=== PATIENT | male | born 1955 | race Caucasian/White ===

== ENCOUNTER 2023-04-03 13:36 | Emergency (ER) | payer MEDICARE, SELFPAY ==
[2023-04-03 13:38] VITALS: BP 142/75; PULSE 59; RESP 16; TEMP 36.7; O2SAT 100; BMI 42.3
[2023-04-03 13:50] VITALS: TEMP 36.7; O2SAT 100
--- NOTE | 2023-04-03 13:54 | CT_ITS ---
STUDY: CT CERVICAL SPINE WITHOUT CONTRAST REASON FOR EXAM: Male, 67 years old. injury, pain RADIATION DOSAGE (If Supplied By Facility): CTDIvol = ( 29.32 ) mGy, DLP = ( 616.57 ) mGycm TECHNIQUE: High resolution transaxial imaging was performed without contrast material. Sagittal and coronal images were reconstructed. Individualized dose optimization techniques were used for this CT. COMPARISON: None FINDINGS: Normal craniovertebral junction. Normal anterior atlantoaxial articulation. Normal odontoid process. There is straightening of the normal cervical lordosis. Normal vertebral bodies and posterior osseous elements. C2-3: Left uncovertebral hypertrophy produces mild left neural foraminal stenosis. No central spinal stenosis. C3-4: 2 mm retrolisthesis of C3 on C4 with a mild bilobed disc osteophyte complex and bilateral uncovertebral hypertrophy produces moderate spinal stenosis and moderate bilateral neural foraminal stenosis. C4-5: Status post anterior cervical discectomy and fusion with bony bridging with anatomic alignment with mild spinal stenosis and mild bilateral neural foraminal stenosis. C5-6: Status post anterior cervical discectomy and fusion with bony bridging with anatomic alignment and mild spinal stenosis and mild bilateral neural foraminal stenosis. C6-7: Status post anterior cervical discectomy and fusion with bony bridging with anatomic alignment and mild spinal stenosis and mild bilateral neural foraminal stenosis C7-T1: Mild broad disc osteophyte complex and bilateral uncovertebral hypertrophy produces mild spinal stenosis and mild bilateral neural foraminal stenosis. Normal visualized soft tissue structures. CT/Spine Cervical without Contras IMPRESSION: No acute fracture or subluxation. Electronically Signed: Brad Alamo MD at 16:00 EDT ,
--- NOTE | 2023-04-03 13:54 | CT_ITS ---
STUDY: CT BRAIN WITHOUT CONTRAST REASON FOR EXAM: Male, 67 years old. fall, head injury RADIATION DOSAGE (If Supplied By Facility): CTDIvol = ( 44.99 ) mGy, DLP = ( 796.11 ) mGycm TECHNIQUE: Transaxial CT imaging of the brain was performed without administration of intravenous contrast material. Individualized dose optimization techniques were used for this CT. COMPARISON: No relevant priors. FINDINGS: Normal soft tissue structures. Normal calvarium. Normal size ventricles and extra-axial spaces for the patient''s age. Normal white matter tracts of the cerebral hemispheres. Normal basal ganglia and thalami. Normal brainstem. Normal cerebellum. There is no intracranial hemorrhage. There are no findings of an acute ischemic infarction. Normal visualized paranasal sinuses. CT/Brain/Head without Contrast IMPRESSION: Normal unenhanced CT scan of the brain. Electronically Signed: Brad Alamo MD at 14:45 EDT ,
--- NOTE | 2023-04-03 13:55 | EX.ED.GENINJ ---
HPI <LEXI Saravia - Last Filed: 04/03/23 17:28> History of Present Illness Chief Complaint: Fall Narrative Narrative: Patient presenting today due to a fall that occurred this morning. He reports that he was taking a shower when he slipped and hit the back of his head on the side of the bathtub. He was able to get up and ambulate after the fall and did not lose consciousness, nor did he feel dazed or confused after the fall. He denies any current headaches, lightheadedness, nausea, or vomiting. Patient reports pain to his neck and to his left flank. He denies any other injury. He takes a daily aspirin but does not take any other blood thinners. FORMERLY [facility], 1928–1983 <LEXI Saravia - Last Filed: 04/03/23 17:28> FORMERLY [facility], [facility] Medical History Type 2 diabetes mellitus Home Medications amlodipine 10 mg tablet 10 mg PO DAILY 04/03/23 [History Last Taken Unknown] aspirin 81 mg capsule 81 mg PO DAILY 04/03/23 [History Last Taken Unknown] atorvastatin 20 mg tablet 20 mg PO QHS 04/03/23 [History Last Taken Unknown] calcium carbonate 600 mg-vitamin D3 5 mcg (200 unit) tablet (Calcium 600 + D(3)) 1 tab PO BID 04/03/23 [History Last Taken Unknown] folic acid 800 mcg tablet 800 mcg PO DAILY 04/03/23 [History Last Taken Unknown] furosemide 40 mg tablet 40 mg PO DAILY 04/03/23 [History Last Taken Unknown] insulin aspart U-100 .ROUTE 04/03/23 [History Last Taken Unknown] insulin degludec 100 unit/mL subcutaneous solution (Tresiba U-100 Insulin) 40 unit subcut QHS 04/03/23 [History Last Taken Unknown] mecobalamin (vitamin B12) 1,000 mcg chewable tablet 1,000 mcg PO DAILY 04/03/23 [History Last Taken Unknown] metoprolol tartrate 50 mg tablet 50 mg PO BID 04/03/23 [History Last Taken Unknown] olmesartan 5 mg tablet 5 mg PO DAILY 04/03/23 [History Last Taken Unknown] omeprazole 40 mg capsule,delayed release 40 mg PO DAILY 04/03/23 [History Last Taken Unknown] Allergy/AdvReac Type Severity Reaction Status Date / Time bacitracin Allergy Rash Verified 04/03/23 13:38 [From Neosporin ([id number])] neomycin Allergy Rash Verified 04/03/23 13:38 [From Neosporin ([id number])] nickel Allergy PT UNSURE Verified 04/03/23 13:38 OF REACTION polymyxin B Allergy Rash Verified 04/03/23 13:38 [From Neosporin ([id number])] Surgical History Hx of cholecystectomy Hx of neck surgery Social History Smoking Status: Never smoker ROS <LEXI Saravia - Last Filed: 04/03/23 17:28> ROS ED Constitutional Constitutional ED: Denies chills or fever(s) Eyes Eyes: Denies change in vision Cardiovascular Cardiovascular: Denies chest pain or palpitations Respiratory/Chest Respiratory/Chest: Denies cough or dyspnea Gastrointestinal Gastrointestinal: Denies abdominal pain, nausea or vomiting Musculoskeletal Musculoskeletal: Reports myalgias and neck pain Integumentary Denies Abrasions or laceration Neurologic Neurologic: Denies confusion, dizziness, headache(s), paresthesias or weakness EXAM <LEXI Saravia - Last Filed: 04/03/23 17:28> Physical Exam Const Vital Signs: 04/03/23 13:38 04/03/23 13:50 04/03/23 16:09 Temperature 98.1 F 98.1 F Temperature Source Temporal Pulse Rate 59 L 72 Respiratory Rate 16 18 Respiratory Effort Normal Non-Labored Respiratory Depth Normal Respiratory Pattern Normal Blood Pressure 142/75 H 134/70 H Blood Pressure Mean 97 Pulse Ox 100 100 97 Oxygen Delivery Method Room Air Positive well nourished, well developed and no apparent distress General Appearance ED: well developed HEENT Reports normocephalic and head/scalp atraumatic Mouth ED: Yes moist mucous membranes normal Eyes PERRL and EOMs intact bilaterally Neck full ROM and supple Neck Narrative: Midline tenderness to the cervical spine. Chest Wall inspection of chest normal Resp normal respiratory effort and clear to auscultation bilaterally Cardio regular rate and regular rhythm GI soft to palpation, non-tender, non-distended and no masses Back/Spine normal ROM and normal to inspection Back/Spine Narrative: No midline spinal tenderness to the thoracic, lumbar, or sacral spine. Left flank tenderness to palpation without any ecchymosis or erythema. Extremity normal to inspection and full ROM Extremity Narrative: Full range of motion of hips bilaterally without any pain, no pain to palpation to the hips, negative log-roll bilaterally. Neuro oriented x3, CN's II-XII intact bilaterally, moves all extremities, no focal motor deficits and no sensory deficits noted Sensorium / Orientation: awake and alert Psych mental status grossly normal and thought process normal Skin no rashes or lesions noted and no wounds <Dr. Robert Alexander DO - Last Filed: 05/15/23 08:22> Physical Exam Const Vital Signs: 04/03/23 13:38 04/03/23 13:50 04/03/23 16:09 Temperature 98.1 F 98.1 F Temperature Source Temporal Pulse Rate 59 L 72 Respiratory Rate 16 18 Respiratory Effort Normal Non-Labored Respiratory Depth Normal Respiratory Pattern Normal Blood Pressure 142/75 H 134/70 H Blood Pressure Mean 97 Pulse Ox 100 100 97 Oxygen Delivery Method Room Air [facility] <LEXI Saravia - Last Filed: 04/03/23 17:28> [facility] Narrative Medical decision making narrative: Patient presenting today due to a fall that occurred in the shower earlier today when he slipped and fell and hit his head and neck on the side of the bathtub. He is well-appearing and in no acute distress. He did not lose consciousness. He is not on any blood thinners. He does report pain to his neck. Head and neck CTs will be obtained to rule out intracranial bleed and cervical fracture. CTs are negative for any acute findings. He will be discharged home in stable condition and is comfortable with plan. He is to follow-up with his PCP. Patient presenting today after a fall that occurred this morning while he was taking a shower. He slipped and hit the back of his head and his neck on the side of the bathtub. He is well-appearing and in no acute distress, vitals are unremarkable. He reports pain to his neck and has history of prior neck surgery with a titanium plate and would like his neck to be evaluated. Patient has minimal tenderness to palpation to the left flank region, this does not involve the rib cage or left hip. I have personally performed a face to face assessment of the patient and have reviewed the BRYAN Note. I performed a substantive portion of the visit including all aspects of the following. My astudillo findings include: History is [patient presents after a fall in the shower. Patient fell and hit his head and neck on the side of the tub. Patient states that he slipped. No loss of consciousness. He has history of prior cervical fusion. Patient chronically has paresthesias in his arms and legs but no different than usual. Denies any other injuries other than in his left posterior hip at times she will have some pain with walking but then the pain goes away and he is able to bear weight without difficulty.] Exam is [HEENT-PERRLA, EOMI. Cranial nerves II through XII grossly intact. TMs clear. Mucous membranes moist. No adenopathy. Patient has some faint erythema to the posterior occiput on the left. No hematomas. No bony depressions. Patient has some diffuse tenderness over the lower cervical spine. Cardiovascular-regular rate and rhythm without murmur or ectopy Lungs-clear to auscultation, chest wall stable without crepitus or subcu emphysema Abdomen-normoactive bowel sounds, soft, nontender, no rebound or rigidity, no peritoneal signs. Extremities-intact ?4, normal range of motion, normal pulses, atraumatic] Medical Decison Making [patient had a CT scan of the brain without contrast as well as a CT of the cervical spine which did not show any acute traumatic injuries. Patient will be discharged to home and advised to follow-up with his primary care physician within next 5 to 7 days.] Other additions or changes: [None] Radiography Diagnostic Testing: Clinical Impression(s) from Imaging Studies Brain CT 04/03/23 13:54 IMPRESSION: Normal unenhanced CT scan of the brain. Electronically Signed: Brad Alamo MD at 14:45 EDT , Cervical Spine CT 04/03/23 13:54 IMPRESSION: No acute fracture or subluxation. Electronically Signed: Brad Alamo MD at 16:00 EDT , <Dr. Robert Alexander, DO - Last Filed: 05/15/23 08:22> [facility] Narrative Medical decision making narrative: Patient presenting today after a fall that occurred this morning while he was taking a shower. He slipped and hit the back of his head and his neck on the side of the bathtub. He is well-appearing and in no acute distress, vitals are unremarkable. He reports pain to his neck and has history of prior neck surgery with a titanium plate and would like his neck to be evaluated. Patient has minimal tenderness to palpation to the left flank region, this does not involve the rib cage or left hip. I have personally performed a face to face assessment of the patient and have reviewed the BRYAN Note. I performed a substantive portion of the visit including all aspects of the following. My astudillo findings include: History is [patient presents after a fall in the shower. Patient fell and hit his head and neck on the side of the tub. Patient states that he slipped. No loss of consciousness. He has history of prior cervical fusion. Patient chronically has paresthesias in his arms and legs but no different than usual. Denies any other injuries other than in his left posterior hip at times she will have some pain with walking but then the pain goes away and he is able to bear weight without difficulty.] Exam is [HEENT-PERRLA, EOMI. Cranial nerves II through XII grossly intact. TMs clear. Mucous membranes moist. No adenopathy. Patient has some faint erythema to the posterior occiput on the left. No hematomas. No bony depressions. Patient has some diffuse tenderness over the lower cervical spine. Cardiovascular-regular rate and rhythm without murmur or ectopy Lungs-clear to auscultation, chest wall stable without crepitus or subcu emphysema Abdomen-normoactive bowel sounds, soft, nontender, no rebound or rigidity, no peritoneal signs. Extremities-intact ?4, normal range of motion, normal pulses, atraumatic] Medical Decison Making [patient had a CT scan of the brain without contrast as well as a CT of the cervical spine which did not show any acute traumatic injuries. Patient will be discharged to home and advised to follow-up with his primary care physician within next 5 to 7 days.] Other additions or changes: [None] Radiography Diagnostic Testing: Clinical Impression(s) from Imaging Studies Brain CT 04/03/23 13:54 IMPRESSION: Normal unenhanced CT scan of the brain. Electronically Signed: Brad Alamo MD at 14:45 EDT , Cervical Spine CT 04/03/23 13:54 IMPRESSION: No acute fracture or subluxation. Electronically Signed: Brad Alamo MD at 16:00 EDT Reading Location ID and State: [id number] / Tel , Service support , Discharge Plan Triage Chief Complaint: Fall ED Midlevel Provider: Tiffanie Mccarty ED Provider: Robert Alexander Dx/Rx/DC Orders Clinical Impression: Neck strain, Head injury, Fall Instructions: ED Head Injury (Adult), ED Neck Sprain or Strain Prescriptions: No Action amlodipine 10 mg tablet 10 mg PO DAILY metoprolol tartrate 50 mg tablet 50 mg PO BID atorvastatin 20 mg tablet 20 mg PO QHS olmesartan 5 mg tablet 5 mg PO DAILY furosemide 40 mg tablet 40 mg PO DAILY omeprazole 40 mg capsule,delayed release(DR/EC) 40 mg PO DAILY insulin degludec [Tresiba U-100 Insulin] 100 unit/mL solution 40 unit subcut QHS insulin aspart U-100 [Novolog FlexPen U-100 Insulin] .ROUTE aspirin 81 mg capsule 81 mg PO DAILY folic acid 800 mcg tablet 800 mcg PO DAILY mecobalamin (vitamin B12) 1,000 mcg tablet,chewable 1,000 mcg PO DAILY calcium carbonate-vitamin D3 [Calcium 600 + D(3)] 600 mg-5 mcg (200 unit) tablet 1 tab PO BID Primary Care Provider: YAJAIRA HANEY Referrals: NOT,DEFINED [Non-Staff] - Activity Restrictions/Additional Instructions: Please follow-up with your PCP and return for any worsening of your symptoms. Take Tylenol for your pain. Disposition Disposition: Home, Self Care Discharge Date/Time: 04/03/23 16:10
[2023-04-03 16:09] VITALS: BP 134/70; PULSE 72; RESP 18; O2SAT 97
== END 2023-04-03 16:10 | disposition home or self-care (01) ==
PROVIDERS: Emergency Provider Emergency Medicine; Visit Provider Emergency Medicine
DX: S09.90XA Unspecified injury of head, initial encounter (principal); E11.9 Type 2 diabetes mellitus without complications; Z79.4 Long term (current) use of insulin; S16.1XXA Strain of muscle, fascia and tendon at neck level, initial encounter; W01.198A Fall on same level from slipping, tripping and stumbling with subsequent striking against other object, initial encounter; Y93.89 Activity, other specified; Y92.89 Other specified places as the place of occurrence of the external cause
CPT/HCPCS: 70450; 72125; 99282

== ENCOUNTER 2023-07-14 13:53 | Emergency (ER) | payer MEDICARE, SELFPAY ==
[2023-07-14 13:54] VITALS: BP 137/67; PULSE 63; RESP 18; TEMP 36.1; O2SAT 97; BMI 43.0
--- NOTE | 2023-07-14 14:06 | EKG12_ITS ---
Test Reason : Blood Pressure : / mmHG Vent. Rate : 060 BPM Atrial Rate : 060 BPM P-R Int : 174 ms QRS Dur : 100 ms QT Int : 416 ms P-R-T Axes : 038 -48 062 degrees QTc Int : 416 ms Normal sinus rhythm Left axis deviation Low voltage QRS Possible Anterolateral infarct , age undetermined Abnormal ECG Confirmed by ELVIRA HUI, NABOR ([id number]), art editor KYLEE HINSON ([id number]) on 07/15/2023 9:36:51 AM Referred By: SYBIL Confirmed By:NABOR FELIX MD
--- NOTE | 2023-07-14 14:09 | NURSING ---
NO OLD EKGS
[2023-07-14] MEDS: Aspirin 81 MG TAB.CHEW 324 MG PO (14:23)
[2023-07-14 14:29] LABS: Absolute Neutrophil Count 4.8 X10^3/uL (2.0-7.7); Basophil# 0.06 X10^3/uL; Basophil% 0.7 % (0-1); Eosinophil# 0.33 X10^3/uL; Eosinophils% 3.8 % (0-5); Hematocrit 37.5 % (40-54); Hemoglobin 12.2 g/dL (13.0-16.5); Mean Corp Hgb Conc 32.5 g/dL (32-36); Mean Corpuscular Hgb 30.9 pg (27.0-32.0); Mean Corpuscular Volume 94.9 fL (80-94); Mean Platelet Vol. 10.2 fl (6.2-12.0); Monocyte# 0.65 X10^3/uL; Monocyte% 7.4 % (0-10); NRBC Flagged by Analyzer 0 % (0-5); Neutrophil # 4.81 X10^3/uL (2.7-7.7); Neutrophil % 54.5 % (47-70); Platelet Count 192 K/mm3 (150-450); RBC Distribution Width CV 13.3 % (11.6-14.6); RBC Distribution Width SD 46.6 fl (35.1-43.9); Red Blood Count 3.95 M/mm3 (4.6-6.2); White Blood Count 8.8 K/mm3 (4.4-11.0)
--- NOTE | 2023-07-14 14:29 | RAD_ITS ---
STUDY: X-RAY CHEST REASON FOR EXAM: Male, 67 years old. Chest pain. TECHNIQUE: Frontal and lateral views of the chest. COMPARISON: None. FINDINGS: Low volume inspiration. There is no demonstrated pleural abnormality. Cardiomegaly. Normal mediastinum and arline. Normal visualized pulmonary arteries. Normal visualized aortic arch and descending thoracic aorta. Normal visualized thoracic spine. Normal visualized ribs, clavicles, and shoulders. No abnormality of the visualized soft tissue structures of the upper abdomen. RAD/Chest PA and Lateral IMPRESSION: Cardiomegaly with low volume inspiration and no acute or active cardiopulmonary disease. Electronically Signed: Eugene Campbell MD at 14:45 EST ,
--- NOTE | 2023-07-14 14:41 | ED.VIS.CHEST ---
HPI History of Present Illness Chief Complaint: Chest Pain Detail of Chief Complaint: Left-sided chest pain described as pressure sensation that started 1 hour P Informant: patient Onset/Context/Timing Onset: Today and Days Activity at onset: sudden and rest Timing: Continuous (Since onset today 1 hour prior to arrival) and Intermittent (Past week lasting up to 1 minute) Quality: Positive for Dull Location: Left Parasternal Current Severity: Mild Maximum Severity: Moderate Worsened By: Nothing Relieved By: Nothing Associated Symptoms: Negative for Nausea, Vomiting, Diaphoresis, Dyspnea, Cough, Fever, Lightheadedness, Acid Reflux or Palpitations Narrative Narrative: Patient is a 67-year-old gentleman with history of hypertension and lower extremity exam a as well as chronic renal disease who presents with dull left-sided chest discomfort that started 1 hour prior to arrival. This occurred shortly after he ate lunch. He denies prior symptoms. Over the past week he has had intermittent onset of chest discomfort that last 1 to 2 minutes. He states he has been at rest although is times. He denies diaphoresis, radiation, shortness of breath, nausea or vomiting. He denies fever, chills night sweats. He denies rhinorrhea, congestion, postnasal drainage or sore throat. He denies cough or shortness of breath. He denies dyspnea on exertion. He denies abdominal pain, distention, change in color, consistency or caliber of his stool. He denies blood in his stool. Denies black or maroon-colored stool. He denies urologic symptoms. He denies any neurologic symptoms. He specifically denies upper or lower back pain. He denies history of peptic ulcers, hiatal hernia or reflux. Patient is on omeprazole. Patient has never been tested for obstructive sleep apnea. He states he relocated from [place]. Prior Similar Symptoms: No Recent Illness/Hospitalization: No CVD Risk Factors: Positive for Hypertension PE Risk Factors: Negative for Recent Travel/Surgery, Recent Immobilization, Prior DVT or PE, Cancer or OCP + Smoking + >/=35 TAD Risk Factors: Positive for Hypertension; Negative for Marfan's Syndrome or Family History [facility] Medical History Amputation toe CKD stage 3 secondary to diabetes Hypertension Type 2 diabetes mellitus Home Medications amlodipine 10 mg tablet 10 mg PO DAILY 04/03/23 [History Last Taken Unknown] aspirin 81 mg capsule 81 mg PO DAILY 04/03/23 [History Last Taken Unknown] atorvastatin 20 mg tablet 20 mg PO QHS 04/03/23 [History Last Taken Unknown] calcium carbonate 600 mg-vitamin D3 5 mcg (200 unit) tablet (Calcium 600 + D(3)) 1 tab PO BID 04/03/23 [History Last Taken Unknown] folic acid 800 mcg tablet 800 mcg PO DAILY 04/03/23 [History Last Taken Unknown] furosemide 40 mg tablet 40 mg PO DAILY 04/03/23 [History Last Taken Unknown] insulin aspart U-100 .Route 04/03/23 [History Last Taken Unknown] insulin degludec 100 unit/mL subcutaneous solution (Tresiba U-100 Insulin) 40 unit subcut QHS 04/03/23 [History Last Taken Unknown] mecobalamin (vitamin B12) 1,000 mcg chewable tablet 1,000 mcg PO .every other day 04/03/23 [History Last Taken Unknown] metoprolol tartrate 50 mg tablet 50 mg PO BID 04/03/23 [History Last Taken Unknown] olmesartan 5 mg tablet 5 mg PO DAILY 04/03/23 [History Last Taken Unknown] omeprazole 40 mg capsule,delayed release 40 mg PO DAILY 04/03/23 [History Last Taken Unknown] Allergy/AdvReac Type Severity Reaction Status Date / Time bacitracin Allergy Rash Verified 07/14/23 13:53 [From Neosporin ([id number])] neomycin Allergy Rash Verified 07/14/23 13:53 [From Neosporin ([id number])] nickel Allergy PT UNSURE Verified 07/14/23 13:53 OF REACTION polymyxin B Allergy Rash Verified 07/14/23 13:53 [From Neosporin ([id number])] Surgical History H/O lithotripsy History of carpal tunnel release Hx of cholecystectomy Hx of hernia repair Hx of neck surgery Social History Smoking Status: Never smoker ROS ROS ED Constitutional Constitutional ED: Denies chills, fever(s), subjective, sweats or weight loss Eyes Eyes: Reports none ENT ENT ED: Denies ear pain or rhinorrhea Cardiovascular Cardiovascular: Reports as per HPI; Denies orthopnea or paroxysmal nocturnal dyspnea Respiratory/Chest Respiratory/Chest: Denies cough, dyspnea, dyspnea on exertion, orthopnea, paroxysmal nocturnal dyspnea or sputum Gastrointestinal Gastrointestinal: Denies abdominal pain, constipation, melena, nausea or vomiting Genitourinary Genitourinary ED: Denies dysuria, hematuria or urinary frequency Musculoskeletal Musculoskeletal: Denies arthralgias, back pain, myalgias or neck pain Integumentary Denies abscess, Abrasions or rash Neurologic Neurologic: Denies headache(s), paresthesias or weakness Psychiatric Psychiatric: Denies anxiety or depression Endocrine Endocrinology: Denies cold intolerance or heat intolerance Hematologic/Lymphatic Hematologic/Lymphatic: Denies easy bleeding or easy bruising EXAM Physical Exam Const Vital Signs: 07/14/23 13:54 07/14/23 14:01 07/14/23 14:37 Temperature 97.0 F L Temperature Source Temporal Pulse Rate 63 Respiratory Rate 18 Respiratory Effort Normal Respiratory Pattern Normal Blood Pressure 137/67 H Blood Pressure Mean 90 Pulse Ox 97 Oxygen Delivery Method Room Air Room Air 07/14/23 15:53 07/14/23 16:00 07/14/23 17:00 Temperature Temperature Source Pulse Rate 60 59 L 61 Respiratory Rate 17 Respiratory Effort Respiratory Pattern Blood Pressure 116/62 Blood Pressure Mean 80 Pulse Ox 98 Oxygen Delivery Method Room Air 07/14/23 18:00 Temperature Temperature Source Pulse Rate 60 Respiratory Rate 15 Respiratory Effort Respiratory Pattern Blood Pressure 126/65 H Blood Pressure Mean 85 Pulse Ox 97 Oxygen Delivery Method Room Air Positive well nourished, well developed and obese General Appearance ED: well developed and NAD; Negative for pallor Nutritional Appearance: obese HEENT Reports TM's clear and moist mucous membranes normocephalic and atraumatic Tympanic Membrane ED: Yes TM's clear Eyes PERRL and EOMs intact bilaterally General Eye ED: Negative for pale conjunctiva or scleral icterus Neck no lymphadenopathy, supple and no JVD Chest Wall inspection of chest normal and palpation of chest normal Resp normal respiratory effort and clear to auscultation bilaterally Effort and Inspection: Negative for pain with movement Cardio regular rate, regular rhythm, S1 normal heart sound, S2 normal heart sound and no murmurs Peripheral Pulses: pulses 2+ throughout GI normal to inspection, nondistended, normoactive bowel sounds, soft to palpation, non-tender, non-distended, hepatosplenomegaly and no masses Back/Spine no CVA tenderness and no thoracic nor lumbar tenderness General Back: CVA tenderness Extremity normal to inspection General Extremety ED: Yes edema; Negative for pulses abnormal or tenderness General Extremity: edema; Negative for pulses abnormal Neuro oriented x3, CN's II-XII intact bilaterally, no sensory deficits noted and gait normal Sensorium / Orientation: awake Motor Exam: strength 5/5 throughout Psych mental status grossly normal Mood & Affect: Negative for depressed or anxious Skin no rashes or lesions noted and no wounds General Skin Exam: Negative for jaundice or pallor Heart Score History: Slightly/Non-Suspicious ECG: Normal Age: >/= 65 years Risk Factors: 1 or 2 Risk Factors Troponin: </= Normal Limit Score: 3 MDM MDM MDM Narrative Medical decision making narrative: Atypical chest pain however he has risk factors for coronary disease. Will obtain chest x-ray to assess for any pulmonary or possible GI etiology i.e. hiatal hernia. EKG and troponin with delta troponin to rule out cardiac ischemia. This also may represent chest pain of unknown etiology. In light of history of stage III kidney disease BMP was obtained to assess renal function as well as glucose since he does have diabetes. Lab Data Attestation: I reviewed the patient's lab results. Lab results narrative: CBC reveals mild anemia with slight elevation of MCV. Glucose is 176 with normal CO2 anion gap. BUN and creatinine are elevated at 44 and 2.18 with a BUN to creatinine ratio approximately 20-1. First troponin is normal at 9. 2-hour troponin is 9 with a delta of 0. Patient be discharged home. Labs: Laboratory Results - last 24 hr 07/14/23 07/14/23 14:15 16:15 WBC 8.8 RBC 3.95 L Hgb 12.2 L Hct 37.5 L MCV 94.9 H MCH 30.9 MCHC 32.5 RDW Std Deviation 46.6 H RDW Coeff of [place] 13.3 Plt Count 192 MPV 10.2 Immature Gran % (Auto) 0.600 Neut % (Auto) 54.5 Lymph % (Auto) 33.0 [place] % (Auto) 7.4 Eos % (Auto) 3.8 Baso % (Auto) 0.7 Absolute Neuts (auto) 4.8 Absolute Lymphs (auto) 2.90 Nucleated RBC % 0 Sodium 136 Potassium 4.8 Chloride 105 Carbon Dioxide 27.0 Anion Gap 4 L BUN 44 H Creatinine 2.18 H Estim Creat Clear Calc 31.81 Est GFR (MDRD) Af Amer 39 L Est GFR (MDRD) Non-Af 32 L BUN/Creatinine Ratio 20.2 H Glucose 176 H Calcium 8.4 L Troponin I High Sens 9 9 Radiography Chest X-Ray - ED: 2 View and Read by ED Physician (Reviewed interpreted by me at 1440 as negative. Cardiac silhouette and size normal. Lung parenchyma normal. Perihilar region normal. Osseous structures are unremarkable.) Diagnostic Testing: Clinical Impression(s) from Imaging Studies Chest X-Ray 07/14/23 14:29 IMPRESSION: Cardiomegaly with low volume inspiration and no acute or active cardiopulmonary disease. Electronically Signed: Eugene Campbell MD at 14:45 EST , EKG Initial EKG: Interpretation: Sinus Rhythm (Rate is 60. ID interval is 174 ms. Cures duration 100 ms. QT duration 416 ms. [place] to the left. There is decreased anterior force. There is also artifact.) Prior: No Prior Treatment and Re-Evaluation :: Was informed of his test results and specifically 2-hour troponin. Patient is at low probability of cardiac disease. Patient's history is not consistent with cardiac disease. Discharge Plan Triage Chief Complaint: Chest Pain ED Provider: Orion Leyva Dx/Rx/DC Orders Clinical Impression: Hypertension, Edema, lower extremity, Intermittent left-sided chest pain, Chronic kidney disease Instructions: ED Chest Pain, Uncertain Cause Prescriptions: No Action amlodipine 10 mg tablet 10 mg PO DAILY metoprolol tartrate 50 mg tablet 50 mg PO BID atorvastatin 20 mg tablet 20 mg PO QHS olmesartan 5 mg tablet 5 mg PO DAILY furosemide 40 mg tablet 40 mg PO DAILY omeprazole 40 mg capsule,delayed release(DR/EC) 40 mg PO DAILY insulin degludec [Tresiba U-100 Insulin] 100 unit/mL solution 40 unit subcut QHS insulin aspart U-100 [Novolog FlexPen U-100 Insulin] .Route Rx Instructions: sliding scale aspirin 81 mg capsule 81 mg PO DAILY folic acid 800 mcg tablet 800 mcg PO DAILY mecobalamin (vitamin B12) 1,000 mcg tablet,chewable 1,000 mcg PO .every other day calcium carbonate-vitamin D3 [Calcium 600 + D(3)] 600 mg-5 mcg (200 unit) tablet 1 tab PO BID Primary Care Provider: More Padilla Referrals: More Padilla MD [Primary Care Provider] - 5-7 Days Disposition Disposition: Home, Self Care
[2023-07-14 14:45] LABS: Anion Gap 4 (5-15); BUN 44 mg/dL (7-18); BUN/Creat Ratio 20.2 RATIO (10-20); Calcium,Total 8.4 mg/dL (8.5-10.1); Chloride 105 mmol/L (98-107); Creatinine, Serum 2.18 mg/dL (0.70-1.30); EST Glomerular Filtration Rate 32 mL/min (>60); Est Glom Filt Rate - Afr Amer 39 mL/min (>60); Estimated Creatinine Clearance 31.81 ml/min; Glucose 176 mg/dL (74-106); Potassium 4.8 mmol/L (3.5-5.1); Sodium Level 136 mmol/L (136-145); Troponin-I HS (w/2H Reflex) 9 pg/mL (3.0-78.0)
[2023-07-14 15:53] VITALS: BP 116/62; PULSE 60; RESP 17; O2SAT 98
[2023-07-14 16:00] VITALS: PULSE 59
[2023-07-14 16:24] LABS: Reflex Troponin-HS? (from REC) Y
[2023-07-14 17:00] VITALS: PULSE 61
[2023-07-14 17:01] LABS: Troponin-I HS 9 pg/mL (3.0-78.0)
[2023-07-14 18:00] VITALS: BP 126/65; PULSE 60; RESP 15; O2SAT 97
[2023-07-14 18:26] VITALS: PULSE 61; RESP 16; O2SAT 98
== END 2023-07-14 18:27 | disposition home or self-care (01) ==
PROVIDERS: Emergency Provider Emergency Medicine; PCP Internal Medicine; Visit Provider Emergency Medicine
DX: R07.89 Other chest pain (principal); E11.22 Type 2 diabetes mellitus with diabetic chronic kidney disease; Z79.4 Long term (current) use of insulin; N18.30 Chronic kidney disease, stage 3 unspecified; R60.0 Localized edema; I12.9 Hypertensive chronic kidney disease with stage 1 through stage 4 chronic kidney disease, or unspecified chronic kidney disease; Z79.899 Other long term (current) drug therapy; Z79.82 Long term (current) use of aspirin; Z90.49 Acquired absence of other specified parts of digestive tract
CPT/HCPCS: 71046; 80048; 84484; 85025; 93005; 99284; A4216

== ENCOUNTER 2023-07-21 10:30 | Outpatient (RCR) | payer MEDICARE, SELFPAY ==
--- NOTE | 2023-06-08 14:12 | HP.PTEVAL_ITS ---
Patient's Visit Information Visit Information Visit Information: DAVID CARDONA is a 67 year old M referred to Physical Therapy by Dr. Keegan Ortiz MD with a diagnosis of CERVICALAGIA. Date of Evaluation: 06/08/23 Physical Therapist: Jonathan Walters PT, Cert MDT, OCS Visit Plan Frequency: 2x /Week Duration: 4 Weeks Plan: PT INTERVETIONS CERVICAL ROM ,POSTURAL EX'S , STRENGTHENING THORACIC,MANUAL THERAPY (CERCICAL TRACTION) ,AND MODALTIES Subjective Subjective: This 67 y/o male presents to physical therapy with cervical pain. Patient had cervical fusion 2008. Patient moved here [place] ,patient was at Hotel slipped in tube fell and hit back of head Apr 03 . Patient ER next day CATSAN brain and cervical which is negative. Patient seen Dr Ortiz did x-rays showed DDD ,try PT then pain management if PT doesn't help and do epidural injections and then MRI. Patient located left cervical .Aggravating factors turning neck ,extension . Patient symptoms affects sleeping .Pain is describes sharp pain. Alleviating factors rest. Patient denies dizziness/nausea/tinnitus. C/O paresthesia hand/from from neuropathy. Patient pain affects QOL and function . Patient has earache . Patient goals to decrease pain. 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 Pain Left Neck: Pain Intensity (Out of 10): 5 Pain Intensity Range: 10 Objective Objective: POSTURE: forward posture rounded shoulders head PALAPTION: UT/levator NEURO: c/o paresthesia/tingling ,reflexes C5-6-7 1/3 AROM: BUE WFL MMT: BUE 5/5 ,shoulders 4/5 CERVICAL ROM: flexion min loss , extension mod loss ,rotation mod loss pain left ,lateral flexion mod loss pain left side CERVICAL ROM: Special Tests C/S Radiculapathy - Left Upper limb tension test: Negative C/S Radiculapathy - Right Upper limb tension test: Negative C/S Radiculapathy - Left Spurlings: Positive C/S Radiculapathy - Right Spurlings: Negative C/S Radiculapathy - Left Cervical distraction: Negative C/S Radiculapathy - Right Cervical distraction: Negative C/S Radiculapathy - Left Relief test: Negative C/S Radiculapathy - Right Relief test: Negative C/S Radiculapathy - Valsalva: Negative Sharp Barbara: Negative Vertebral Artery Test: Negative Alar Ligament Test: Negative Balance/Special Test Scores Oswestry Neck Score: 15 Goals Goal 1:: Patient to be I with HEP for ADLS Goal Time Frame: 4-6 Weeks Goal 2:: Patient to improve posture and ADLS 's Goal Time Frame: 4-6 Weeks Goal 3:: Patient to demonstrate 50% improvement to decrease pain and improved function Goal Time Frame: 4-6 Weeks Goal 4:: Patient to improve cervical ROM for 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 drive car Goal Time Frame: 4-6 Weeks Goal 5:: Patient to improve neck oswestry score by 5 points to improve function Goal Time Frame: 4-6 Weeks Rehabilitation Potential Physical Therapy Diagnosis: This patient fell an hit head caused pain left cervical pain on left side with pain with positioning and motion testing pain worse to left thus benefit from skilled PT Rehabilitation Potential: Good Anticipated Interventions Patient/Client Instruction: Educate patient on: Condition and Plan of Care For the Purpose of:: To decrease pain, To increase ROM, To improve muscle performance and motor function, To improve ability to perform ADL's, To increase tolerance to activity/condition/position, To improve health of tissue, To decrease soft tissue restriction and To increase flexibility/ROM Therapeutic Exercise to Include: Strength training, Postural training, Gait and locomotor training, Active ROM and Scapular Strength/Stabilization For the Purpose of:: To decrease pain, To increase ROM, To improve muscle performance and motor function, To improve performance and independence with ADL's, To improve ability of physical actions for home/community/work/leisure, To improve health of tissue, To decrease soft tissue restriction, To increase flexibility/ROM and To prevent re-injury Manual Therapy Techniques to Include: Mobilization Comment: CERVICAL TRACTION For the Purpose of:: To decrease pain, To increase ROM, To improve nutrient delivery to tissue, To increase oxygenation perfusion, To improve health of tissue and To decrease soft tissue restriction TENS: Yes IF ES: Yes Cryotherapy (ice pack, ice massage): Yes Thermo therapy (hot pack): Yes Ultrasound (thermal/non thermal): Yes For the Purpose of:: To decrease pain, To increase ROM, To improve nutrient delivery to tissue, To increase oxygenation perfusion, To improve health of tissue and To decrease soft tissue restriction Text: Thank you for the opportunity to evaluate your patient. For Medicare and Medicare HMO plans, please review the plan of care and approve it. It will need to be FAXED BACK to us at [phone] for Medicare purposes. For Medicare only, by signing this I certify the plan of care. Please let me know if there are questions or concerns regarding this plan of care. Physician Signature : Date:
--- NOTE | 2023-07-06 10:56 | HP.PTREVAL ---
Re-Evaluation Intro: Dr. Keegan Ortiz MD, It has been my pleasure to treat DAVID CARDONA over the last 9 visits for CERVICALAGIA. Please see the progress note below for an update on the physical therapy plan of care! Subjective Subjective: Doing alot better Objective Objective/Function: POSTURE: forward posture rounded shoulders head PALAPTION: UT/levator NEURO: c/o paresthesia/tingling ,reflexes C5-6-7 1/3 AROM: BUE WFL MMT: BUE 5/5 ,shoulders 4/5 CERVICAL ROM: flexion min loss , extension mod loss ,rotation left ,lateral flexion mod with improved ROM to left with less pain Plan Plan Plan: CONT WITH POC PT INTERVETIONS CERVICAL ROM ,POSTURAL EX'S , STRENGTHENING THORACIC,MANUAL THERAPY (CERVICAL TRACTION) ,AND MODALTIES Balance/Gait/Functional tests Balance/Special Test Scores Oswestry Neck Score: 6 Goals Goals Goal 1:: Patient to be I with HEP for ADLS Goal Time Frame: 4-6 Weeks Goal Progress: Progressing Goal 2:: Patient to improve posture and ADLS 's Goal Time Frame: 4-6 Weeks Goal Progress: Progressing Goal 3:: Patient to demonstrate 50% improvement to decrease pain and improved function Goal Time Frame: 4-6 Weeks Goal Progress: Progressing Goal 4:: Patient to improve cervical ROM for 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 drive 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 Goal Time Frame: 4-6 Weeks Goal Progress: Progressing Goal 5:: Patient to improve neck oswestry score by 5 points to improve function Goal Time Frame: 4-6 Weeks Goal Progress: Progressing Anticipated Interventions Anticipated Interventions Patient/Client Instruction: Educate patient on: Condition and Plan of Care For the Purpose of:: To decrease pain, To increase ROM, To improve muscle performance and motor function, To improve ability to perform ADL's, To increase tolerance to activity/condition/position, To improve health of tissue, To decrease soft tissue restriction and To increase flexibility/ROM Therapeutic Exercise to Include: Strength training, Postural training, Gait and locomotor training, Active ROM and Scapular Strength/Stabilization For the Purpose of:: To decrease pain, To increase ROM, To improve muscle performance and motor function, To improve performance and independence with ADL's, To improve ability of physical actions for home/community/work/leisure, To improve health of tissue, To decrease soft tissue restriction, To increase flexibility/ROM and To prevent re-injury Manual Therapy Techniques to Include: Mobilization Comment: CERVICAL TRACTION For the Purpose of:: To decrease pain, To increase ROM, To improve nutrient delivery to tissue, To increase oxygenation perfusion, To improve health of tissue and To decrease soft tissue restriction TENS: Yes IF ES: Yes Cryotherapy (ice pack, ice massage): Yes Thermo therapy (hot pack): Yes Ultrasound (thermal/non thermal): Yes For the Purpose of:: To decrease pain, To increase ROM, To improve nutrient delivery to tissue, To increase oxygenation perfusion, To improve health of tissue and To decrease soft tissue restriction Re-Evaluation Ending Re-evaluation ending: Please do not hesitate to contact me at [phone] by phone or if you have questions or concerns regarding this new plan of care! Sincerely, Jonathan Walters, PT, Cert MDT, OCS
--- NOTE | 2023-07-21 11:44 | HP.PTDCSUM ---
Discharge Summary D/C summary: It has been my pleasure to treat DAVID CARDONA referred by Dr. Keegan Ortiz MD, with the diagnosis of CERVICALAGIA for a total of 13 visit(s). Discharge Date: 07/21/23 Please see the following information for a summary of their discharge status. Subjective Subjective: DOING GRAET Pain Left Neck: Pain Intensity (Out of 10): 1 Overall Improvement % Improvement: 99 Objective Objective/Function: POSTURE: forward posture rounded shoulders head PALAPTION: UT/levator NEURO: c/o paresthesia/tingling ,reflexes C5-6-7 / AROM: BUE WFL MMT: BUE 5/5 ,shoulders 4/5 CERVICAL ROM: flexion min loss , extension min/mod loss ,rotation left ,lateral flexion min/mod loss pain Goals Goal 1:: Patient to be I with HEP for ADLS Goal Progress: Progressing Goal 2:: Patient to improve posture and ADLS 's Goal Progress: Goal Met Goal 3:: Patient to demonstrate 50% improvement to decrease pain and improved function Goal Progress: Goal Met Goal 4:: Patient to improve cervical ROM 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 Thank you for the referral of this patient. Sincerely, Jonathan Walters, PT, Cert MDT, OCS Balance/Gait/Functional tests Balance/Special Test Scores Oswestry Neck Score: 1 Improvement % Improvement: 99
== END 2023-07-21 19:00 | disposition home or self-care (01) ==
LOC: PT 10:30
PROVIDERS: PCP Internal Medicine; Referring Provider Orthopaedic Surgery Orthopaedic Surgery of the Spine; Visit Provider Orthopaedic Surgery Orthopaedic Surgery of the Spine
DX: M54.2 Cervicalgia (principal)
CPT/HCPCS: 97012; 97035; 97110; 97162

== ENCOUNTER → 2023-08-29 | Outpatient (CLI) | payer MEDICARE, SELFPAY ==
[2023-08-29 16:26] LABS: PSA,Total - Annual Screen 5.25 ng/mL (0.00-4.00)
== END | disposition home or self-care (01) ==
LOC: LAB 15:10
PROVIDERS: PCP Internal Medicine; Referring Provider Urology; Visit Provider Urology
DX: Z12.5 Encounter for screening for malignant neoplasm of prostate (principal)
CPT/HCPCS: 36415; 84153; G0103

== ENCOUNTER 2023-09-05 22:17 | Emergency (ER) | payer MEDICARE, SELFPAY ==
[2023-09-05 22:17] VITALS: BP 161/75; PULSE 73; PULSE 74; RESP 14; RESP 16; TEMP 36.6; O2SAT 96; O2SAT 98; BMI 43.2
--- NOTE | 2023-09-05 22:42 | EDS_ITS ---
HPI History of Present Illness Chief Complaint: Chest Pain Informant: patient Narrative Narrative: Patient is a 67-year-old male with past medical history of hypertension hyperlipidemia chronic kidney disease and diabetes. He states that throughout the day today he has had intermittent left-sided to midsternal chest discomfort. He states that it feels like more of a burning sensation . He denies any radiation down the arms or to his back. He states he did feel slightly short of breath with it. He reports his father had bypass at age 59 and his brother also had a history of heart disease and this concerns and based on his risk factors as well as family history and therefore he comes in for evaluation [facility] Medical History Abnormal EKG Anemia Arthritis Atherosclerosis of [place] coronary artery of [place] heart without angina pectoris CKD stage 3 secondary to diabetes Diastolic dysfunction Dilated aortic root GERD (gastroesophageal reflux disease) Hyperlipidemia Hypertension Left ventricular hypertrophy Morbidly obese Osteopenia Type 2 diabetes mellitus Venous insufficiency Home Medications amlodipine 10 mg tablet 10 mg PO DAILY 04/03/23 [History Last Taken Unknown] aspirin 81 mg capsule 81 mg PO DAILY 04/03/23 [History Last Taken Unknown] atorvastatin 20 mg tablet 20 mg PO QHS 04/03/23 [History Last Taken Unknown] calcium carbonate 600 mg-vitamin D3 5 mcg (200 unit) tablet (Calcium 600 + D(3)) 1 tab PO BID 04/03/23 [History Last Taken Unknown] folic acid 800 mcg tablet 800 mcg PO DAILY 04/03/23 [History Last Taken Unknown] furosemide 40 mg tablet 40 mg PO DAILY 04/03/23 [History Last Taken Unknown] insulin degludec 100 unit/mL subcutaneous solution (Tresiba U-100 Insulin) 40 unit subcut QHS 04/03/23 [History Last Taken Unknown] mecobalamin (vitamin B12) 1,000 mcg chewable tablet 1,000 mcg PO .every other day 04/03/23 [History Last Taken Unknown] metoprolol tartrate 50 mg tablet 50 mg PO BID 04/03/23 [History Last Taken Unknown] olmesartan 5 mg tablet 5 mg PO DAILY 04/03/23 [History Last Taken Unknown] omeprazole 40 mg capsule,delayed release 40 mg PO DAILY 04/03/23 [History Last Taken Unknown] cholecalciferol (vitamin D3) 25 mcg (1,000 unit) capsule 25 mcg PO QHS 08/04/23 [History Last Taken Unknown] allopurinol 100 mg tablet 100 mg PO BID #60 tabs 08/29/23 [Rx Last Taken Unknown] insulin aspart U-100 100 unit/mL (3 mL) subcutaneous pen (Novolog FlexPen U-100 Insulin aspart) See Protocol subcut 09/05/23 [History Last Taken Unknown] Allergy/AdvReac Type Severity Reaction Status Date / Time latex Allergy Unknown Rash Verified 09/05/23 22:19 bacitracin Allergy Rash Verified 09/05/23 22:19 [From Neosporin ([id number])] neomycin Allergy Rash Verified 09/05/23 22:19 [From Neosporin ([id number])] nickel Allergy PT UNSURE Verified 09/05/23 22:19 OF REACTION polymyxin B Allergy Rash Verified 09/05/23 22:19 [From Neosporin ([id number])] Family History Grandmother Diabetes Father Heart disease Myocardial infarction 59 Cancer prostate and throat Hypertension Hyperlipidemia Mother Cancer lung Brother Aortic aneurysm Cancer prostate Surgical History Amputation toe Cataract extraction status H/O lithotripsy History of carpal tunnel release History of foot surgery Hx of cholecystectomy Hx of hernia repair Hx of neck surgery S/P cervical spinal fusion Social History household members: spouse current occupational 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 Smoking Status: Never smoker Electronic Cigarette Use: not used alcohol intake: never substance use type: does not use what type of physical activity do you participate in: none seatbelt use: always do you feel safe at home: Yes ROS ROS ED Constitutional Constitutional ED: Denies chills or fever(s) Eyes Eyes: Denies change in vision ENT ENT ED: Denies sore throat Cardiovascular Cardiovascular: Reports chest pain; Denies palpitations or racing heartbeat Respiratory/Chest Respiratory/Chest: Denies cough or dyspnea Gastrointestinal Gastrointestinal: Denies abdominal pain, diarrhea, nausea or vomiting Genitourinary Genitourinary ED: Denies dysuria Musculoskeletal Musculoskeletal: Denies back pain or myalgias Integumentary Denies rash Neurologic Neurologic: Denies headache(s) Hematologic/Lymphatic Hematologic/Lymphatic: Denies easy bleeding or easy bruising EXAM Physical Exam Const Vital Signs: 09/05/23 22:17 09/05/23 22:17 09/05/23 22:27 Temperature 98 F Temperature Source Temporal Pulse Rate 73 74 Respiratory Rate 16 14 Respiratory Pattern Normal Blood Pressure 161/75 H Blood Pressure Mean 103 Pulse Ox 98 96 Oxygen Delivery Method Room Air Room Air 09/05/23 23:00 09/06/23 00:20 09/06/23 00:37 Temperature Temperature Source Pulse Rate 76 62 62 Respiratory Rate 19 H 16 14 Respiratory Pattern Blood Pressure 132/59 H 130/60 H 122/61 H Blood Pressure Mean 83 83 81 Pulse Ox 96 98 96 Oxygen Delivery Method Room Air Room Air Room Air Positive well nourished and well developed General Appearance ED: well developed; Negative for pallor HEENT HEENT Narrative: Normocephalic atraumatic Eyes PERRL and EOMs intact bilaterally General Eye ED: Negative for scleral icterus Neck supple Neck Narrative: No nuchal rigidity or meningeal signs Chest Wall Chest Narrative: Reproducible midsternal to left anterior chest wall pain with palpation without bony deformity or crepitance Resp normal respiratory effort and clear to auscultation bilaterally Cardio regular rate and regular rhythm Rate: other Other Details: Heart is regular rate and rhythm without murmurs rubs or gallops Radial and carotid pulses are equal and symmetric GI non-distended GI Narrative: Mild tenderness to palpation in the right upper quadrant without voluntary guarding or rigidity. No pulsatile mass or fluid wave. Auscultation: normoactive bowel sounds Palpation: soft Extremity Extremity Narrative: +1-2 pitting edema to the bilateral lower extremities is equal and symmetric and chronic per patient Negative Homans' sign bilaterally Neuro oriented x3, CN's II-XII intact bilaterally and no sensory deficits noted Sensorium / Orientation: alert Motor Exam: strength 5/5 throughout Psych mental status grossly normal Skin no rashes or lesions noted Skin Narrative: No overlying erythema or warmth to suggest infection No abrasions or ecchymosis to suggest trauma General Skin Exam: Negative for jaundice or pallor MDM MDM MDM Narrative Medical decision making narrative: Patient arrived to the ER hypertensive otherwise with stable vitals. He reported atypical midsternal to left-sided chest discomfort that had been off and on throughout the day. He does have risk factors of age hypertension hyperlipidemia and diabetes as well as a father with previous bypass and secondary to this a cardiac workup was obtained. Differential diagnosis is for acute coronary syndrome versus pneumonia versus pneumothorax versus pancreatitis. The patient's EKG was sinus rhythm without ischemic changes and his initial troponin was 10 with a delta increasing by 1 point to a value of 11 which is not clinically significant. He did have a elevated creatinine of 2.4 but he has history of chronic kidney disease and this is near his baseline. I elected to check liver enzymes as well as a lipase as he did have mild pain with palpation in the right upper quadrant and midepigastric region but these were normal as well. Because the patient has a first relatives/brother who rep ortedly had a aortic dissection I did elect to check a D-dimer and it was elevated. We discussed that with his chronic kidney disease a CT with IV contrast could lead to worsening renal function and that his Blood pressure in the right and left arm was essentially equal and he did not have normal or classic symptoms of pain that is sharp constant radiating to the back or worse with inspiration and therefore elected to not progress to the CTA. On reevaluation the patient is resting comfortably his vitals have improved without treatment he has also had resolution of his pain and therefore his workup is not showing signs of infection lung pathology or acute coronary syndrome he is otherwise safe for discharge History & Record Review Discussion w/independent historian: Patient Lab Data Attestation: I reviewed the patient's lab results. Labs: Laboratory Results - last 24 hr 09/05/23 09/06/23 22:27 00:10 WBC 8.9 RBC 3.94 L Hgb 12.3 L Hct 37.5 L MCV 95.2 H MCH 31.2 MCHC 32.8 RDW Std Deviation 48.2 H RDW Coeff of Germain 13.8 Plt Count 213 MPV 10.7 Immature Gran % (Auto) 0.200 Neut % (Auto) 54.2 Lymph % (Auto) 33.8 [place] % (Auto) 6.5 Eos % (Auto) 4.4 Baso % (Auto) 0.9 Absolute Neuts (auto) 4.8 Absolute Lymphs (auto) 3.00 Nucleated RBC % 0 D-Dimer Quant (PE/DVT) 1.52 H* Sodium 138 Potassium 4.3 Chloride 107 Carbon Dioxide 24.0 Anion Gap 7 BUN 48 H Creatinine 2.42 H Estim Creat Clear Calc 38.78 Est GFR (MDRD) Af Amer 35 L Est GFR (MDRD) Non-Af 29 L BUN/Creatinine Ratio 19.8 Glucose 215 H Calcium 8.9 Total Bilirubin 0.30 Direct Bilirubin 0.11 AST 20 ALT 20 Alkaline Phosphatase 130 H Troponin I High Sens 10 11 Total Protein 7.7 Albumin 3.8 Globulin 3.9 Lipase 17 Radiography Diagnostic Testing: Clinical Impression(s) from Imaging Studies Chest X-Ray 09/05/23 22:47 IMPRESSION: No acute findings in the chest. Electronically Signed: Darek Rod MD at 23:24 EST , Chest x-ray as interpreted by the emergency medicine physician reveals no acute infiltrate or pneumothorax or pleural effusion Discharge Plan Triage Chief Complaint: Chest Pain ED Provider: Hero Medina Dx/Rx/DC Orders Clinical Impression: Nonspecific chest pain, Type 2 diabetes mellitus, Chronic kidney disease, Hypertension Instructions: ED Chest Pain, Uncertain Cause Prescriptions: No Action cholecalciferol (vitamin D3) 25 mcg (1,000 unit) capsule 25 mcg PO QHS insulin aspart U-100 [Novolog FlexPen U-100 Insulin] 100 unit/mL (3 mL) insulin pen See Protocol SUBCUT Protocol: 6. Sliding Scale Insulin Custom Condition: mg/dl range Dose/Route: Number of Units Dose/Route: 3 units Instruction: >150 Dose/Route: 5 units Instruction: >175 Dose/Route: 7 unis Instruction: >200 Protocol Text: Custom Sliding Scale Patient Comments: USE A SLIDING SCALE 3 TIMES A DAY UP TO 45 UNITS A DAY UNDERSKIN DIRECTED 90 amlodipine 10 mg tablet 10 mg PO DAILY metoprolol tartrate 50 mg tablet 50 mg PO BID atorvastatin 20 mg tablet 20 mg PO QHS olmesartan 5 mg tablet 5 mg PO DAILY furosemide 40 mg tablet 40 mg PO DAILY omeprazole 40 mg capsule,delayed release(DR/EC) 40 mg PO DAILY insulin degludec [Tresiba U-100 Insulin] 100 unit/mL solution 40 unit subcut QHS aspirin 81 mg capsule 81 mg PO DAILY folic acid 800 mcg tablet 800 mcg PO DAILY [facility] (vitamin B12) 1,000 mcg tablet,chewable 1,000 mcg PO .every other day calcium carbonate-vitamin D3 [Calcium 600 + D(3)] 600 mg-5 mcg (200 unit) tablet 1 tab PO BID allopurinol 100 mg tablet 100 mg PO BID Qty: 60 0RF Primary Care Provider: More Padilla Referrals: Moer Padilla MD [Primary Care Provider] - Activity Restrictions/Additional Instructions: Your workup today did not show any signs of acute heart damage as the troponin/blood test for your heart was normal. Chest x-ray also shows no sign of lung pathology. Please follow-up with your post commander and/or family doctor for repeat evaluation and if symptoms worsen or you have any further concerns please return for repeat evaluation Disposition Disposition: Home, Self Care
--- NOTE | 2023-09-05 22:47 | RAD_ITS ---
EXAM: XR CHEST, 2 VIEWS CLINICAL INDICATION: chest pain TECHNIQUE: Frontal and lateral views of the chest. COMPARISON: Two-view chest 07/14/2023 FINDINGS: LUNGS AND PLEURAL SPACES: Unremarkable. No consolidation or edema. No pneumothorax. No effusion. HEART: Unremarkable. Cardiac silhouette not enlarged. MEDIASTINUM: Central airways and mediastinal contour are unremarkable. BONES/JOINTS: Degenerative changes of the spine. No acute fracture. SOFT TISSUES: Unremarkable. RAD/Chest PA and Lateral IMPRESSION: No acute findings in the chest. Electronically Signed: Darek Rod MD at 23:24 EST ,
[2023-09-05 23:00] VITALS: BP 132/59; PULSE 76; RESP 19; O2SAT 96
[2023-09-05 23:02] LABS: Absolute Neutrophil Count 4.8 X10^3/uL (2.0-7.7); Basophil# 0.08 X10^3/uL; Basophil% 0.9 % (0-1); Eosinophil# 0.39 X10^3/uL; Eosinophils% 4.4 % (0-5); Hematocrit 37.5 % (40-54); Hemoglobin 12.3 g/dL (13.0-16.5); Lymphocyte % 33.8 % (19-41); Mean Corp Hgb Conc 32.8 g/dL (32-36); Mean Corpuscular Hgb 31.2 pg (27.0-32.0); Mean Corpuscular Volume 95.2 fL (80-94); Mean Platelet Vol. 10.7 fl (6.2-12.0); Monocyte# 0.58 X10^3/uL; Monocyte% 6.5 % (0-10); NRBC Flagged by Analyzer 0 % (0-5); Neutrophil # 4.81 X10^3/uL (2.7-7.7); Neutrophil % 54.2 % (47-70); Platelet Count 213 K/mm3 (150-450); RBC Distribution Width CV 13.8 % (11.6-14.6); RBC Distribution Width SD 48.2 fl (35.1-43.9); Red Blood Count 3.94 M/mm3 (4.6-6.2); White Blood Count 8.9 K/mm3 (4.4-11.0)
--- OUTSIDE RECORDS SUMMARY | 2023-09-05 23:09 | XMS RPT_ITS | CCD ---
Author Name Unknown Address Formerly [facility] [place] [address] Organization [facility] Care Team Providers Care Room Designer Name Role Phone MAYA RIDDLE Referring Unavailable MAYA RIDDLE Attending Unavailable IKE FRANCO Primary Care Unav ailable TESTMAYA TOLLIVER Attending Unavailable IKE FRANCO Primary Care Unav ailable Allergies Allergy Classification Reported Allergen(s) Allergy Type Date of Onset Reaction(s) Facility (1 source) Latex; Translations: [LATEX] Propensity to adverse reactions to drug (disorder) 3 [facility] Repository (1 source) nickel; Translations: [NICKEL] Drug Allergy [address] [place] [address] Repository (1 source) NEOMYCIN-POLYMYX IN-GRAMICIDIN; Translations: [NEOMYCIN-POLYMY ITALO-GRAMICIDIN] Propensity to adverse reactions to drug (disorder) [address] [place] [address] Repository Results Test Name Value Interpretation Reference Range Facil ity Encounters Encounter Date Encounter Type Care Provider Facility Start: 07-28-2023 End: 07-28-2023 ambulatory MAYA RIDDLE Facility:[facility] Start: 04-28-2023 End: 04-28-2023 ambulatory MAYA [facility] Facility:[facility] Payers Date Payer Category Payer Medicare [id number] Progress note 07-28-2023 Note Date & Type Note Facility 07-28-2023 Note HNO ID: [id number] Author: Maya Riddle Service: ? Author Type: Physician Type: Progress Notes Filed: 07/28/2023 12:33 PM Note Text: Has yet to establish care with pcp. Recently saw pcp in [place]. Subjective: Patient presents to clinic c/o painful toenails. They state that the nails are especially painful with shoe gear and pressure. Patient admits to being diabetic. No other pedal complaints at this time. Patient states no change in medications or medical history since last visit. Objective: Patient presents to clinic ambulating in [facility] Vasc: DP and PT pulses are palpable bilateral. CFT is less than 5 seconds bilateral. Skin temperature is warm to cool proximal to distal bilateral. There is mild edema or varicosities noted. Neuro: Protective sensation is absent to the foot and toes when tested with the 5.07 SWM bilateral. Vibratory sensation is absent at the hallux IPJ bilateral. The hallux is downgoing bilateral. Derm: Nails 1-5 left and 1-3,5 right are discolored-yellow, thick, crumbly, dystrophic and with subungal debris. Skin is of normal turgor, texture and hair growth is absent bilateral. There are callus to lateral aspect of b/l midfoot. no ulcerations, scars, verruca or other lesions noted. Ortho: Muscle strength is 5/5 for all pedal groups tested. Ankle joint DF is decreased with the knee extended with no pain or crepitus noted. 1st MPJ ROM is decreased bilateral. 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 Nails 1-5 left and 1-3,5 were debrided in length and thickness. Q7 modifier Callus reduced to plantar aspect of lateral midfoot b/l. Due to diabetic neuropathy, history of callus, history of toe amputation (nontraumatic), I do feel diabetic shoe is best option for patient. Patient was instructed on the continued importance of diabetic foot care along with proper diet and keeping their blood sugar under control to prevent complications. Patient is to RTC in 3-4 months. Maya Riddle DPM [facility] Progress note 07-28-2023 Note Date & Type Note Facility 07-28-2023 Note HNO ID: [id number] Author: Dinora Orona RN Service: ? Author Type: Registered Nurse Type: Progress Notes Filed: 07/28/2023 12:33 PM Note Text: Patient presents with: Left Foot - Established Patient, Debridement of Nail Right Foot - Established Patient, Debridement of Nail [facility] Progress note 04-28-2023 Note Date & Type Note Facility 04-28-2023 Note HNO ID: [id number] Author: Maya Riddle Service: ? Author Type: Physician Type: Progress Notes Filed: 04/29/2023 7:22 AM Note Text: Patient has yet to establish care with pcp since moving. Initial Office Visit Subjective: This 67 year old male presents to clinic for diabetic foot check. Patient has the following complaints: peeling of left 4th and 5th toe but otherwise no major complaints. Patient admits to being diabetic for 30 years now. Patient +B/T/N in feet at this time. Patient did have bunion surgeyr in 2018 and hsa no issues since. Patient -pain in legs when walking. No other pedal complaints at this time. No change in medications or medical history since last visit. PAIN EVALUATION No data found in the last 1 encounters. No results found for: HBA1C PCP: Ike Franco MD, MD PAST MEDICAL HISTORY Diagnosis Date Diabetes mellitus (HCC) HTN (hypertension) Stage 3 chronic kidney disease (HCC) Current Outpatient Medications Medication Sig metoprolol tartrate, short acting, (LOPRESSOR) 50 mg tablet Take 50 mg by mouth twice daily. atorvastatin (LIPITOR) 20 mg tablet Take 1 tablet by mouth every afternoon. olmesartan (BENICAR) 5 mg tablet Take 5 mg by mouth once daily. furosemide (LASIX) 40 mg tablet Take 1 tablet by mouth every morning. omeprazole (PRILOSEC) 40 mg capsule Take 40 mg by mouth every morning. TRESIBA FLEXTOUCH U-200 200 unit/mL (3 mL) injection Inject 40 Units subcutaneously daily at bedtime. NOVOLOG FLEXPEN U-100 INSULIN 100 unit/mL (3 mL) Sliding scale as needed 3,5,7 amLODIPine (NORVASC) 10 mg tablet Take 10 mg by mouth once daily. aspirin, enteric coated (ASPIRIN, ENTERIC COATED) 81 mg EC tablet Take 81 mg by mouth once daily. folic acid 800 mcg tablet Take 400 mcg by mouth once daily. cyanocobalamin (VITAMIN B-12) 1,000 mcg tab Take 1,000 mcg by mouth every other day. calcium carbonate/vitamin D2 ([id number] ORAL) Take 1 tablet by mouth twice daily. cholecalciferol, vitamin D3, (VITAMIN D3 ORAL) Take 1,000 mg by mouth daily at bedtime. No current facility-administered medications for this visit. ALLERGIES Allergen Reactions Latex Rash Neomycin-Polymyxin-* Rash Nickel Rash PAST SURGICAL HISTORY Procedure Laterality Date AMPUTATION TOE,MT-P JT Right 4th toe BUNIONECTOMY, LAPIDUS-TYPE Bilateral LITHOTRIPSY XTRCORP SHOCK WAVE REMOVAL GALLBLADDER No family history on file. Social History Tobacco Use Smoking status: Never Smokeless tobacco: Former Types: Chew Vaping Use Vaping Use: Never used Substance Use Topics Alcohol use: Not Currently Drug use: Never REVIEW OF SYSTEMS GENERAL: Negative for Malaise, significant weight loss, fever RESPIRATORY: Negative for cough, wheezing and shortness of breath CARDIOVASCULAR: Negative for chest pain, leg swelling and palpitations GI: Negative for abdominal discomfort, blood in stools or black stools and change in bowel habits : Negative for dysuria, frequency and incontinence MUSCULOSKELETAL: Negative for joint pain or swelling, back pain, and muscle pain. SKIN: Negative for lesions, rash, and itching. HEMATOLOGY/LYMPHOLOGY Negative for prolonged bleeding, bruising easily, and swollen nodes. ENDOCRINE: Negative for cold or heat intolerance, polyuria, polydipsia and goiter. NEURO: negative The remainder of the review of systems is noncontributory. Objective: Patient presents to clinic ambulating in diabetic shoe Constitutional: Pt is a well developed 67 year old male who is alert, oriented, cooperative and in no apparent distress. Eyes: Following during examination. No redness or drainage. Respiratory: RR normal and nonlabored. Even breathing. No evidence of distress. Psychology: Patient is engaged during conversation. Normal affect and mood. Does not appear depressed or anxious. Vasc: DP and PT pulses are palpable bilateral. CFT is less than 5 seconds bilateral. Skin temperature is warm to warm proximal to distal bilateral. There is moderate edema or varicosities noted. Hair growth present. Neuro: Protective sensation is absent to the foot and toes when tested with the 5.07 SWM bilateral. Vibratory sensation is absent at the hallux bilateral. + Significant neurological defecits. Derm: Inspection and palpation performed. Nails 1-5 left and 1-3,5 are discolored-yellow, thick, crumbly, dystrophic and with subungal debris. Skin is of normal turgor and texture with exception to the lateral aspect of left 5th toe where there is callus and peeling of skin. Hyperkeratosis noted to left lateral 5th toe. NO ulcerations, scars, verruca or other lesions noted. Ortho: Ankle joint DF is decreased with the knee extended and decreased with knee flexed. No pain or crepitus noted. STJ, MTJ ROM are full and free of pain or crepitus. Muscle strength is 5/5 for dorsiflexors, plantarflexors, inverters, everters. Digital deformities include (more content not included)... [facility] Progress note 04-28-2023 Note Date & Type Note Facility 04-28-2023 Note HNO ID: [id number] Author: Anali Ferguson RN Service: ? Author Type: Registered Nurse Type: Progress Notes Filed: 04/29/2023 7:22 AM Note Text: Patient presents with: Left Foot - New, Numbness, Edema Right Foot - New, Numbness, Edema Patient presents to become established here with the [facility] for podiatry. Patient recently moved up from [place]. Has history of diabetes, neuropathy, edema to the feet, bilateral bunionectomy and right 4th toe removed. Skin is peeling to Left 4th toe. [facility] Summary Purpose Family History No Family History Records Found Advance Directives No Advanced Directives Records Found Additional Source Comments (unrecognized sect ion and content) No Status Records Found INFORMATION SOURCE (unrecogn ized section and content) FOR RECORDS PERTAINING TO PATIENTS WHO ARE OR HAVE BEEN ENROLLED IN A CHEMICAL DEPENDENCY/SUBSTANCEABUSE PROGRAM, SOME INFORMATION MAY BE OMITTED. This clinical summary was aggregated from multiple sources. Caution should be exercised in using it in the provision of clinical care. This summary normalizes information from multiple sources, and as a consequence, information in this document may materially change the coding, format and clinical context of patient data. In addition, data may be omitted in some cases. CLINICAL DECISIONS SHOULD BE BASED ON THE PRIMARY CLINICAL RECORDS. [employer] [facility]. provides no warranty or guarantee of the accuracy or completeness of information in this document.
[2023-09-05 23:23] LABS: AST(SGOT) 20 U/L (15-37); Alanine Aminotransfer ALT/SGPT 20 U/L (16-61); Albumin, Serum 3.8 g/dL (3.2-5.0); Alkaline Phosphatase 130 U/L (45-117); Anion Gap 7 (5-15); BUN 48 mg/dL (7-18); BUN/Creat Ratio 19.8 RATIO (10-20); Bilirubin, Direct 0.11 mg/dL (0.00-0.30); Calcium,Total 8.9 mg/dL (8.5-10.1); Chloride 107 mmol/L (98-107); Creatinine, Serum 2.42 mg/dL (0.70-1.30); EST Glomerular Filtration Rate 29 mL/min (>60); Est Glom Filt Rate - Afr Amer 35 mL/min (>60); Estimated Creatinine Clearance 38.78 ml/min; Globulin 3.9 g/dL (2.2-4.2); Glucose 215 mg/dL (74-106); Lipase 17 U/L (13-75); Potassium 4.3 mmol/L (3.5-5.1); Protein, Total 7.7 g/dL (6.4-8.2); Sodium Level 138 mmol/L (136-145); Troponin-I HS 10 pg/mL (3.0-78.0)
[2023-09-05 23:31] LABS: D-Dimer Quantitative (DVT/PE) 1.52 FEU/ug/m (0.27-0.49)
[2023-09-06 00:20] VITALS: BP 130/60; PULSE 62; RESP 16; O2SAT 98
[2023-09-06 00:37] VITALS: BP 122/61; PULSE 62; RESP 14; O2SAT 96
[2023-09-06 00:40] LABS: Troponin-I HS 11 pg/mL (3.0-78.0)
== END 2023-09-06 01:24 | disposition home or self-care (01) ==
PROVIDERS: Emergency Provider Emergency Medicine; PCP Internal Medicine; Visit Provider Emergency Medicine
DX: R07.9 Chest pain, unspecified (principal); E11.22 Type 2 diabetes mellitus with diabetic chronic kidney disease; Z79.4 Long term (current) use of insulin; N18.30 Chronic kidney disease, stage 3 unspecified; I12.9 Hypertensive chronic kidney disease with stage 1 through stage 4 chronic kidney disease, or unspecified chronic kidney disease; E78.5 Hyperlipidemia, unspecified; I25.10 Atherosclerotic heart disease of native coronary artery without angina pectoris; Z79.899 Other long term (current) drug therapy; Z79.82 Long term (current) use of aspirin; K21.9 Gastro-esophageal reflux disease without esophagitis; Z90.49 Acquired absence of other specified parts of digestive tract
CPT/HCPCS: 71046; 80048; 80076; 83690; 84484; 85025; 85379; 93005; 99283; J7030; A4216

== ENCOUNTER → 2023-09-29 | Outpatient (CLI) | payer MEDICARE, SELFPAY ==
--- NOTE | 2023-09-29 12:49 | US_ITS ---
INDICATION: CHRONIC KIDNEY DISEASE EXAMINATION: Ultrasound US Kidney(s) complete (eg, kidneys and bladder) TECHNIQUE: Galindo scale and color doppler images were obtained of the kidneys. COMPARISON: None. FINDINGS: Technically suboptimal study due to patient body habitus. RIGHT KIDNEY: 12.2 cm length. There is no hydronephrosis. Suboptimal parenchymal detail. Grossly unremarkable. LEFT KIDNEY: 12.7 cm length. There is no hydronephrosis. Suboptimal parenchymal detail. Grossly unremarkable. URINARY BLADDER: Moderately distended. Bladder volume 193 mL. Ureteral jets were not visualized. US/Kidney and Bladder IMPRESSION: No acute findings. Electronically Signed: Ann Haines MD at 8:06 EST ,
--- OUTSIDE RECORDS SUMMARY | 2023-09-29 18:58 | XMS RPT_ITS | CCD ---
Author Name Unknown Address [facility] [place] [address] Organization [facility] Care Team Providers Care Commutator Tester Name Role Phone MAYA RIDDLE Referring Unavailable MAYA RIDDLE Attending Unavailable IKE FRANCO Primary Care Unav ailable TESTMAYA TOLLIVER Attending Unavailable IKE FRANCO Primary Care Unav ailable Allergies Allergy Classification Reported Allergen(s) Allergy Type Date of Onset Reaction(s) Facility (1 source) Latex; Translations: [LATEX] Propensity to adverse reactions to drug (disorder) 3 [facility] Repository (1 source) nickel; Translations: [NICKEL] Drug Allergy [address] [place] [address] Repository (1 source) NEOMYCIN-POLYMYX IN-GRAMICIDIN; Translations: [NEOMYCIN-POLYMY ITALO-GRAMICIDIN] Propensity to adverse reactions to drug (disorder) [address] [place] [address] Repository Results Test Name Value Interpretation Reference Range Facil ity Encounters Encounter Date Encounter Type Care Provider Facility Start: 07-28-2023 End: 07-28-2023 ambulatory MAYA RIDDLE Facility:[facility] Start: 04-28-2023 End: 04-28-2023 ambulatory MAYA [facility] Facility:[facility] Payers Date Payer Category Payer Medicare [id number] Progress note 07-28-2023 Note Date & Type Note Facility 07-28-2023 Note HNO ID: [id number] Author: Maya Riddle Service: ? Author Type: Physician Type: Progress Notes Filed: 07/28/2023 12:33 PM Note Text: Has yet to establish care with pcp. Recently saw pcp in [place]. Subjective: Patient presents to clinic c/o painful toenails. They state that the nails are especially painful with shoe gear and pressure. Patient admits to being diabetic. No other pedal complaints at this time. Patient states no change in medications or medical history since last visit. Objective: Patient presents to clinic ambulating in [facility] Vasc: DP and PT pulses are [...] with diabetes mellitus due to underlying condition ([facility]) (primary encounter diagnosis) (S98.131D) Amputation of little toe, right, subsequent encounter ([facility]) (L84) Callus of foot (B35.1) Onychomycosis (M79.672) [...] RTC in 3-4 months. Maya Riddle DPM [facility] Progress note 07-28-2023 Note Date & Type Note Facility 07-28-2023 Note HNO ID: [id number] Author: Dinora Orona RN Service: ? Author Type: Registered Nurse Type: Progress Notes Filed: 07/28/2023 12:33 PM Note Text: Patient presents with: Left Foot - Established Patient, Debridement of Nail Right Foot - Established Patient, Debridement of Nail [facility] Progress note 04-28-2023 Note Date & Type Note Facility 04-28-2023 Note HNO ID: [id number] Author: Maya Riddle Service: ? Author Type: [...] mouth every other day. calcium carbonate/vitamin D2 ([id number] ORAL) Take 1 tablet by mouth twice [...] Digital deformities include (more content not included)... [facility] Progress note 04-28-2023 Note Date & Type Note Facility 04-28-2023 Note HNO ID: [id number] Author: Anali Ferguson RN Service: ? Author Type: Registered Nurse Type: Progress Notes Filed: 04/29/2023 7:22 AM Note Text: Patient presents with: Left Foot - New, Numbness, Edema Right Foot - New, Numbness, Edema Patient presents to become established here with the [facility] for podiatry. Patient recently moved up from [place]. Has history of diabetes, neuropathy, edema to the feet, bilateral bunionectomy and right 4th toe removed. Skin is peeling to Left 4th toe. [facility] Summary Purpose Family History No [...] BE BASED ON THE PRIMARY CLINICAL RECORDS. [employer] [facility]. provides no warranty or guarantee of the accuracy or completeness of information in this document.
== END | disposition home or self-care (01) ==
PROVIDERS: PCP Internal Medicine; Referring Provider Internal Medicine Nephrology; Visit Provider Internal Medicine Nephrology
DX: N18.4 Chronic kidney disease, stage 4 (severe) (principal)
CPT/HCPCS: 76770

== ENCOUNTER → 2023-10-03 | Outpatient (CLI) | payer MEDICARE, SELFPAY ==
--- OUTSIDE RECORDS SUMMARY | 2023-10-03 06:12 | XMS RPT_ITS | CCD ---
Author Name Unknown Address [facility] [place] [address] Organization [facility] Care Team Providers Care Prop Worker Name Role Phone MAYA RIDDLE Referring Unavailable MAYA RIDDLE Attending Unavailable IKE FRANCO Primary Care Unav ailable TESTMAYA TOLLIVER Attending Unavailable IKE FRANCO Primary Care Unav ailable Allergies Allergy Classification Reported Allergen(s) Allergy Type Date of Onset Reaction(s) Facility (1 source) Latex; Translations: [LATEX] Propensity to adverse reactions to drug (disorder) 3 [facility] Repository (1 source) nickel; Translations: [NICKEL] Drug Allergy [address] [place] [address] Repository (1 source) NEOMYCIN-POLYMYX IN-GRAMICIDIN; Translations: [NEOMYCIN-POLYMY ITALO-GRAMICIDIN] Propensity to adverse reactions to drug (disorder) [address] [place] [address] Repository Results Test Name Value Interpretation Reference Range Facil ity Encounters Encounter Date Encounter Type Care Provider Facility Start: 07-28-2023 End: 07-28-2023 ambulatory MAYA RIDDLE Facility:[facility] Start: 04-28-2023 End: 04-28-2023 ambulatory MAYA [facility] Facility:[facility] Payers Date Payer Category Payer Medicare [id number] Progress note 07-28-2023 Note Date & Type Note Facility 07-28-2023 Note HNO ID: [id number] Author: Maya Riddle Service: ? Author Type: Physician Type: Progress Notes Filed: 07/28/2023 12:33 PM Note Text: Has yet to establish care with pcp. Recently saw pcp in [place]. Subjective: Patient presents to clinic c/o painful toenails. They state that the nails are especially painful with shoe gear and pressure. Patient admits to being diabetic. No other pedal complaints at this time. Patient states no change in medications or medical history since last visit. Objective: [facility]: DP and PT pulses [...] with diabetes mellitus due to underlying condition ([facility]) (primary encounter diagnosis) (S98.131D) Amputation of little toe, right, subsequent encounter ([facility]) (L84) Callus of foot (B35.1) Onychomycosis [...] RTC in 3-4 months. Maya Riddle DPM [facility] Progress note 07-28-2023 Note Date & Type Note Facility 07-28-2023 Note HNO ID: [id number] Author: Dinora Orona RN Service: ? Author Type: Registered Nurse Type: Progress Notes Filed: 07/28/2023 12:33 PM Note Text: Patient presents with: Left Foot - Established Patient, Debridement of Nail Right Foot - Established Patient, Debridement of Nail [facility] Progress note 04-28-2023 Note Date & Type Note Facility 04-28-2023 Note HNO ID: [id number] Author: Maya Riddle Service: ? Author Type: [...] mouth every other day. calcium carbonate/vitamin D2 ([id number] ORAL) Take 1 tablet by mouth twice [...] Digital deformities include (more content not included)... [facility] Progress note 04-28-2023 Note Date & Type Note Facility 04-28-2023 Note HNO ID: [id number] Author: Anali Ferguson RN Service: ? Author Type: Registered Nurse Type: Progress Notes Filed: 04/29/2023 7:22 AM Note Text: Patient presents with: Left Foot - New, Numbness, Edema Right Foot - New, Numbness, Edema Patient presents to become established here with the [facility] for podiatry. Patient recently moved up from [place]. Has history of diabetes, neuropathy, edema to the feet, bilateral bunionectomy and right 4th toe removed. Skin is peeling to Left 4th toe. [facility] Summary Purpose Family History No Family History [...] BE BASED ON THE PRIMARY CLINICAL RECORDS. [employer] [facility]. provides no warranty or guarantee of the accuracy or completeness of information in this document.
[2023-10-03 08:05] LABS: PSA,Total- Diagnostic 3.41 ng/mL (0.0-4.0)
== END | disposition home or self-care (01) ==
LOC: LAB 06:00
PROVIDERS: PCP Internal Medicine; Referring Provider Urology; Visit Provider Urology
DX: R97.20 Elevated prostate specific antigen [PSA] (principal)
CPT/HCPCS: 36415; 84153

== ENCOUNTER → 2024-01-13 | Outpatient (CLI) | payer MEDICARE, SELFPAY ==
[2024-01-13 06:54] LABS: Absolute Lymphocyte Count 2.59 X10^3/uL (0.83-4.51); Absolute Neutrophil Count 4.3 X10^3/uL (2.0-7.7); Basophil# 0.07 X10^3/uL; Basophil% 0.9 % (0-1); Eosinophil# 0.34 X10^3/uL; Eosinophils% 4.3 % (0-5); Hematocrit 36.5 % (40-54); Hemoglobin 11.8 g/dL (13.0-16.5); Lymphocyte # 2.59 X10^3/ul (0.83-4.51); Lymphocyte % 32.7 % (19-41); Mean Corp Hgb Conc 32.3 g/dL (32-36); Mean Corpuscular Hgb 31.9 pg (27.0-32.0); Mean Corpuscular Volume 98.6 fL (80-94); Mean Platelet Vol. 10.5 fl (6.2-12.0); Monocyte# 0.59 X10^3/uL; Monocyte% 7.5 % (0-10); NRBC Flagged by Analyzer 0 % (0-5); Neutrophil # 4.29 X10^3/uL (2.7-7.7); Neutrophil % 54.2 % (47-70); Platelet Count 192 K/mm3 (150-450); RBC Distribution Width CV 13.3 % (11.6-14.6); White Blood Count 7.9 K/mm3 (4.4-11.0)
[2024-01-13 07:26] LABS: Albumin, Serum 3.5 g/dL (3.2-5.0); BUN 40 mg/dL (7-18); BUN/Creat Ratio 21.6 RATIO (10-20); Calcium,Total 8.6 mg/dL (8.5-10.1); Chloride 106 mmol/L (98-107); Cholesterol 97 mg/dL (200); Creatinine, Serum 1.85 mg/dL (0.70-1.30); EST Glomerular Filtration Rate 39 mL/min (>60); Est Glom Filt Rate - Afr Amer 47 mL/min (>60); Glucose 103 mg/dL (74-106); High Density Lipoprotein 24 mg/dL; Phosphorus 3.8 mg/dL (2.5-4.9); Potassium 4.5 mmol/L (3.5-5.1); Sodium Level 135 mmol/L (136-145); Triglycerides 199 mg/dL; Very Low Density Lipoprotein 40 mg/dL (5-40)
[2024-01-13 08:38] LABS: PTHIN 130.8 pg/mL (18.4-80.1)
[2024-01-13 08:43] LABS: Vitamin B12 1123 pg/mL (211-911); Vitamin D,25 Hydroxy 45.8 ng/mL
[2024-01-13 09:43] LABS: Protein, Urine (Random) 7.3 mg/dL (<11.9); Protein:Creat Ratio 122 mg/g CRE (0-200)
== END | disposition home or self-care (01) ==
LOC: LAB 05:56
PROVIDERS: PCP Internal Medicine; Referring Provider Internal Medicine; Visit Provider Internal Medicine
DX: N18.4 Chronic kidney disease, stage 4 (severe) (principal); D64.9 Anemia, unspecified
CPT/HCPCS: 36415; 80061; 80069; 82306; 82570; 82607; 83970; 84156; 85025

== ENCOUNTER → 2024-08-13 | Outpatient (CLI) | payer MEDICARE, SELFPAY ==
[2024-08-13 12:44] LABS: Hematocrit 38.8 % (40-54); Hemoglobin 12.7 g/dL (13.0-16.5); Mean Corp Hgb Conc 32.7 g/dL (32-36); Mean Corpuscular Hgb 32.1 pg (27.0-32.0); Mean Platelet Vol. 11.1 fl (6.2-12.0); Platelet Count 206 K/mm3 (150-450); RBC Distribution Width CV 13.5 % (11.6-14.6); RBC Distribution Width SD 49.1 fl (35.1-43.9); Red Blood Count 3.96 M/mm3 (4.6-6.2); White Blood Count 8.4 K/mm3 (4.4-11.0)
[2024-08-13 12:57] LABS: PTHIN 154.6 pg/mL (18.4-80.1)
[2024-08-13 13:05] LABS: Protein, Urine (Random) 12.3 mg/dL (<11.9); Protein:Creat Ratio 108 mg/g CRE (0-200)
[2024-08-13 13:16] LABS: Albumin, Serum 3.8 g/dL (3.2-5.0); BUN 47 mg/dL (7-18); BUN/Creat Ratio 21.1 RATIO (10-20); Calcium,Total 8.9 mg/dL (8.5-10.1); Chloride 103 mmol/L (98-107); Creatinine, Serum 2.23 mg/dL (0.70-1.30); EST Glomerular Filtration Rate 31 mL/min (>60); Est Glom Filt Rate - Afr Amer 38 mL/min (>60); Glucose 116 mg/dL (74-106); Phosphorus 4.2 mg/dL (2.5-4.9); Potassium 4.5 mmol/L (3.5-5.1); Sodium Level 133 mmol/L (136-145)
== END | disposition home or self-care (01) ==
LOC: BIMLAB 08:06
PROVIDERS: PCP Internal Medicine; Referring Provider Internal Medicine Nephrology; Visit Provider Internal Medicine Nephrology
DX: N18.4 Chronic kidney disease, stage 4 (severe) (principal); D63.1 Anemia in chronic kidney disease
CPT/HCPCS: 36415; 80069; 82306; 82570; 83970; 84156; 85027

== ENCOUNTER 2024-08-22 22:56 | Emergency (ER) | payer MEDICARE, SELFPAY ==
[2024-08-22 22:57] VITALS: PULSE 70; RESP 18; TEMP 36.4; O2SAT 97; BMI 42.9
--- NOTE | 2024-08-22 23:05 | EKG12_ITS ---
Test Reason : CP Blood Pressure : */* mmHG Vent. Rate : 61 BPM Atrial Rate : 61 BPM P-R Int : 196 ms QRS Dur : 88 ms QT Int : 412 ms P-R-T Axes : 39 -41 62 degrees QTcB Int : 414 ms Normal sinus rhythm Left axis deviation Low voltage QRS Cannot rule out Anteroseptal infarct , age undetermined Abnormal ECG Confirmed by Gilmar Toscano ([id number]), editor school photograph BETTE BERNARDO ([id number]) on 08/23/2024 10:21:07 AM Referred By: JASON Confirmed By: Gilmar Toscano
--- NOTE | 2024-08-22 23:06 | ED.VIS.CHEST ---
HPI History of Present Illness Chief Complaint: Chest Pain Narrative Narrative: Chief complaint and HPI: Chest pain. 68-year-old male with past medical history of CAD, HTN, HLD, DM, CKD presents for evaluation of chest pain. Onset of chest pain was 5 PM. Patient states that he had fallen asleep in a recliner when his woke him up. He states shortly after he developed left-sided chest pain. Pain is minimal and describes it as pressure. Denies any radiation down the arm or into the jaw. Denies any diaphoresis, shortness of breath, nausea, vomiting. Patient has not taken anything for the pain. On chart review, patient follows with cardiology here at [facility]. He had a remote catheterization in 2015 which showed a 10% left main trunk lesion of 40% LAD lesion the circumflex was 40% stenosis the right coronary had a 20% stenosis and his EF was 55%. He had nuclear stress testing in 2021 which showed no evidence of ischemia. His echocardiogram in 2021 showed an EF of 50 to 55%. Patient's last cardiology appointment was in August 2023. He states that at that time they told him that they did not need to see him until 2 years. Denies any fever, chills, URI symptoms. Review of systems: See HPI Medications: As listed on the chart Allergies: As listed on the chart PFSH: Per chart Vital signs: As listed on the chart. Reviewed. Physical exam: Gen: A&O x3, NAD Head: Normocephalic, atraumatic Eyes: No sclera icterus, conjunctiva clear ENT: Moist mucous membranes Neck: Trachea midline, No JVD CV: RRR, no murmurs, chest pain nonreproducible, mild peripheral edema but wearing compression stockings Resp: Lungs CTA BL, no w/r/c GI: Abd soft, non-distended, non-tender, no r/r/g Musc: Full ROM, no deformity Skin: Warm, dry Neuro: Alert, oriented, grossly intact, sensation intact Psych: Cooperative, appropriate mood and affect [facility] Medical History Dilated aortic root Diastolic dysfunction Morbidly obese Venous insufficiency Abnormal EKG Atherosclerosis of [place] coronary artery of [place] heart without angina pectoris Left ventricular hypertrophy Hyperlipidemia GERD (gastroesophageal reflux disease) Osteopenia Anemia Arthritis CKD stage 3 secondary to diabetes Hypertension Type 2 diabetes mellitus Home Medications ?Medication ?Instructions ?Recorded ?Last Taken ?Type aspirin 81 mg capsule 81 mg PO DAILY 04/03/23 Unknown History calcium 600 mg (as 1 tab PO BID 04/03/23 Unknown History carbonate)-vitamin D3 5 mcg (200 unit) tablet (Calcium 600 + D(3)) folic acid 800 mcg tablet 800 mcg PO DAILY 04/03/23 Unknown History mecobalamin (vitamin B12) 1,000 1,000 mcg PO .every other day 04/03/23 Unknown History mcg chewable tablet allopurinol 100 mg tablet 100 mg PO BID #60 tabs 08/29/23 Unknown Rx insulin aspart U-100 100 unit/mL See Protocol subcut ACHS 09/05/23 Unknown History (3 mL) subcutaneous pen (Novolog FlexPen U-100 Insulin aspart) ferrous sulfate 325 mg (65 mg 325 mg PO DAILY #90 tabs 01/20/24 Unknown Rx iron) tablet,delayed release blood sugar diagnostic (OneTouch #100 ea 02/07/24 Unknown Rx Ultra Test strips) atorvastatin 20 mg tablet 20 mg PO QHS #90 tabs 02/22/24 Unknown Rx furosemide 40 mg tablet 40 mg PO DAILY #90 tabs 04/24/24 Unknown Rx olmesartan 5 mg tablet 5 mg PO DAILY #90 tabs 04/24/24 Unknown Rx amlodipine 10 mg tablet 10 mg PO DAILY #90 tabs 05/08/24 Unknown Rx omeprazole 40 mg capsule,delayed 40 mg PO DAILY #90 caps 05/18/24 Unknown Rx release insulin degludec 200 unit/mL (3 40 unit (0.2 mL) subcut QHS #9 mL 06/18/24 Unknown Rx mL) subcutaneous pen (Tresiba FlexTouch U-200 insulin) pen needle, diabetic 31 gauge x #300 ea 08/10/24 Unknown Rx 5/16 (BD Ultra-Fine Short Pen Needle) metoprolol tartrate 50 mg tablet 50 mg PO BID 90 days #180 tabs 08/16/24 Unknown Rx mupirocin 2 % topical ointment 1 applic topical BID PRN PRN rash 08/22/24 Unknown History Allergy/AdvReac Type Severity Reaction Status Date / Time latex Allergy Unknown Rash Verified 08/22/24 22:59 bacitracin (From Neosporin Allergy Rash Verified 08/22/24 22:59 ([id number])) neomycin (From Neosporin Allergy Rash Verified 08/22/24 22:59 ([id number])) nickel Allergy PT UNSURE Verified 08/22/24 22:59 OF REACTION polymyxin B (From Neosporin Allergy Rash Verified 08/22/24 22:59 ([id number])) Family History Grandmother Diabetes Father Heart disease Myocardial infarction 59 Cancer prostate and throat Hypertension Hyperlipidemia Mother Cancer lung Brother Aortic aneurysm Cancer prostate Surgical History Cataract extraction status History of foot surgery History of carpal tunnel release Amputation toe Hx of hernia repair H/O lithotripsy S/P cervical spinal fusion Hx of neck surgery Hx of cholecystectomy Social History household members: spouse current occupational 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 Smoking Status: Never smoker Electronic Cigarette Use: not used alcohol intake: never substance use type: does not use what type of physical activity do you participate in: none seatbelt use: always do you feel safe at home: Yes EXAM Physical Exam Const Vital Signs: 08/22/24 22:57 08/22/24 22:59 08/22/24 23:56 Temperature 97.5 F L Temperature Source Oral Pulse Rate 70 55 L Respiratory Rate 18 13 Respiratory Effort Normal Non-Labored Blood Pressure 112/56 L Blood Pressure Mean 74 Pulse Ox 97 97 Oxygen Delivery Method Room Air Room Air 08/23/24 00:00 Temperature Temperature Source Pulse Rate 56 L Respiratory Rate 14 Respiratory Effort Blood Pressure 104/59 L Blood Pressure Mean 74 Pulse Ox 96 Oxygen Delivery Method Room Air MDM MDM MDM Narrative Medical decision making narrative: 68-year-old male with past medical history of CAD, HTN, HLD, DM, CKD presents for evaluation of chest pain. Differential diagnosis includes but is not limited to arrhythmia, anemia, electrolyte abnormality, ACS. Vitals are stable on presentation. Patient is nontoxic-appearing. Cardiac workup ordered. Aspirin ordered. CBC without leukocytosis. Patient has baseline anemia. Coagulation panel unremarkable. BMP shows mildly worsened CKD. Troponin 15. Will get delta. You would expect this to be elevated if this was ACS especially since patient's pain has been ongoing since 5 PM. BNP unremarkable. At this point in time, patient's repeat troponin is pending. Patient signed out to night physician. Final disposition pending repeat troponin. If this remains unremarkable and patient's pain improved, plan will likely be to discharge home and follow-up outpatient with cardiology. EKG: Interpreted by me/EM physician: EKG shows normal sinus rhythm without any acute ischemic changes. Heart rate 61. EKG is similar to previous EKG in 2023. Diagnostic: Interpreted by me/EM physician: Chest x-ray without pneumonia, effusion, pneumothorax. Chest x-ray has chronic lung changes that are seen on previous chest x-ray. Impression: 1. Chest pain 2. CKD Lab Data Labs: Laboratory Results - last 24 hr 08/22/24 23:00 WBC 8.6 RBC 3.89 L Hgb 12.6 L Hct 37.1 L MCV 95.4 H MCH 32.4 H MCHC 34.0 RDW Std Deviation 46.9 H RDW Coeff of Germain 13.5 Plt Count 183 MPV 10.7 Immature Gran % (Auto) 0.400 Neut % (Auto) 49.9 Lymph % (Auto) 36.7 [place] % (Auto) 8.1 Eos % (Auto) 4.1 Baso % (Auto) 0.8 Absolute Neuts (auto) 4.3 Absolute Lymphs (auto) 3.14 Nucleated RBC % 0 PT 13.5 INR 1.0 APTT 27.6 Sodium 136 Potassium 4.3 Chloride 104 Carbon Dioxide 24.0 Anion Gap 8 BUN 65 H Creatinine 2.88 H Estim Creat Clear Calc 31.03 Est GFR (MDRD) Af Amer 28 L Est GFR (MDRD) Non-Af 23 L BUN/Creatinine Ratio 22.6 H Glucose 157 H Calcium 9.0 Troponin I High Sens 15 B-Natriuretic Peptide 26.3 Discharge Plan Triage Chief Complaint: Chest Pain ED Provider: Teddy Edwards Dx/Rx/DC Orders Prescriptions: No Action insulin aspart U-100 [Novolog FlexPen U-100 Insulin] 100 unit/mL (3 mL) insulin pen See Protocol SUBCUT ACHS Protocol: 6. Sliding Scale Insulin Custom Condition: mg/dl range Dose/Route: Number of Units Dose/Route: 3 units Instruction: >150 Dose/Route: 5 units Instruction: >175 Dose/Route: 7 unis Instruction: >200 Protocol Text: Custom Sliding Scale Patient Comments: USE A SLIDING SCALE 3 TIMES A DAY UP TO 45 UNITS A DAY UNDERSKIN DIRECTED 90 aspirin 81 mg capsule 81 mg PO DAILY folic acid 800 mcg tablet 800 mcg PO DAILY mecobalamin (vitamin B12) 1,000 mcg tablet,chewable 1,000 mcg PO .every other day calcium carbonate-vitamin D3 [Calcium 600 + D(3)] 600 mg-5 mcg (200 unit) tablet 1 tab PO BID mupirocin 2 % ointment 1 applic TOPICAL BID PRN PRN (Reason: rash) allopurinol 100 mg tablet 100 mg PO BID Qty: 60 0RF ferrous sulfate 325 mg (65 mg iron) tablet,delayed release (DR/EC) 325 mg PO DAILY Qty: 90 0RF (DME) OneTouch Ultra Test Strip See Rx Instructions .Route Qty: 100 3RF Rx Instructions: As directed to check BG three times daily for DMII atorvastatin 20 mg tablet 20 mg PO QHS Qty: 90 1RF furosemide 40 mg tablet 40 mg PO DAILY Qty: 90 1RF olmesartan 5 mg tablet 5 mg PO DAILY Qty: 90 1RF amlodipine 10 mg tablet 10 mg PO DAILY Qty: 90 1RF omeprazole 40 mg capsule,delayed release(DR/EC) 40 mg PO DAILY Qty: 90 1RF insulin degludec [Tresiba FlexTouch U-200] 200 unit/mL (3 mL) insulin pen 40 unit subcut QHS Qty: 9 2RF (DME) pen needle, diabetic [BD Ultra-Fine Short Pen Needle] 31 gauge x 5/16 needle See Rx Instructions .Route Qty: 300 2RF Rx Instructions: As directed three times daily for DMII metoprolol tartrate 50 mg tablet 50 mg PO BID 90 Days Qty: 180 1RF Primary Care Provider: More Padilla Referrals: More Padilla MD [Primary Care Provider] - Print Language: Uzbek
[2024-08-22] MEDS: Aspirin 81 MG TAB.CHEW 324 MG PO (23:09)
[2024-08-22 23:17] LABS: Absolute Lymphocyte Count 3.14 X10^3/uL (0.83-4.51); Absolute Neutrophil Count 4.3 X10^3/uL (2.0-7.7); Basophil# 0.07 X10^3/uL; Basophil% 0.8 % (0-1); Eosinophil# 0.35 X10^3/uL; Eosinophils% 4.1 % (0-5); Hematocrit 37.1 % (40-54); Hemoglobin 12.6 g/dL (13.0-16.5); Lymphocyte # 3.14 X10^3/ul (0.83-4.51); Lymphocyte % 36.7 % (19-41); Mean Corpuscular Hgb 32.4 pg (27.0-32.0); Mean Corpuscular Volume 95.4 fL (80-94); Mean Platelet Vol. 10.7 fl (6.2-12.0); Monocyte# 0.69 X10^3/uL; Monocyte% 8.1 % (0-10); NRBC Flagged by Analyzer 0 % (0-5); Neutrophil # 4.28 X10^3/uL (2.7-7.7); Neutrophil % 49.9 % (47-70); Platelet Count 183 K/mm3 (150-450); RBC Distribution Width CV 13.5 % (11.6-14.6); RBC Distribution Width SD 46.9 fl (35.1-43.9); Red Blood Count 3.89 M/mm3 (4.6-6.2); White Blood Count 8.6 K/mm3 (4.4-11.0)
--- NOTE | 2024-08-22 23:20 | RAD_ITS ---
STUDY: X-RAY CHEST REASON FOR EXAM: Male, 68 years old. chest pain TECHNIQUE: Frontal and lateral views of the chest. COMPARISON: September 05, 2023 FINDINGS: Cervical hardware. The lungs are clear and expanded. There is no demonstrated pleural abnormality. Normal size heart. Normal mediastinum and arline. Normal visualized pulmonary arteries. Normal visualized aortic arch and descending thoracic aorta. Normal visualized thoracic spine. Normal visualized ribs, clavicles, and shoulders. There is no demonstrated abnormality of the visualized soft tissue structures of the upper abdomen. RAD/Chest PA and Lateral IMPRESSION: Normal x-ray examination of the chest. Electronically Signed: Manuel Redd MD at 0:14 EST ,
[2024-08-22 23:27] LABS: Prothrombin Time (Protime)PT. 13.5 SECONDS (11.7-14.9)
[2024-08-22 23:28] LABS: Partial Thromboplast Time 27.6 Seconds (24.1-36.2)
[2024-08-22 23:36] LABS: Anion Gap 8 (5-15); BUN 65 mg/dL (7-18); BUN/Creat Ratio 22.6 RATIO (10-20); Chloride 104 mmol/L (98-107); Creatinine, Serum 2.88 mg/dL (0.70-1.30); EST Glomerular Filtration Rate 23 mL/min (>60); Est Glom Filt Rate - Afr Amer 28 mL/min (>60); Estimated Creatinine Clearance 31.03 ml/min; Glucose 157 mg/dL (74-106); Potassium 4.3 mmol/L (3.5-5.1); Sodium Level 136 mmol/L (136-145); Troponin-I HS (w/2H Reflex) 15 pg/mL (3.0-78.0)
[2024-08-22 23:37] LABS: BNP,B-Type NATRIURETIC PEPTIDE 26.3 pg/mL (0-100)
[2024-08-22 23:56] VITALS: BP 112/56; PULSE 55; RESP 13; O2SAT 97
[2024-08-23] VITALS: BP 104/59; PULSE 56; RESP 14; O2SAT 96
[2024-08-23 01:00] VITALS: BP 115/54; PULSE 53; RESP 18; O2SAT 97
[2024-08-23 01:12] LABS: Reflex Troponin-HS? (from REC) Y
[2024-08-23 01:48] LABS: Troponin-I HS 16 pg/mL (3.0-78.0)
[2024-08-23 02:00] VITALS: BP 114/53; PULSE 60; RESP 16; TEMP 36.7; O2SAT 99
== END 2024-08-23 02:00 | disposition home or self-care (01) ==
PROVIDERS: Emergency Provider Surgery; PCP Internal Medicine; Visit Provider Surgery
DX: R07.9 Chest pain, unspecified (principal); E11.22 Type 2 diabetes mellitus with diabetic chronic kidney disease; Z79.4 Long term (current) use of insulin; N18.30 Chronic kidney disease, stage 3 unspecified; E78.5 Hyperlipidemia, unspecified; I25.10 Atherosclerotic heart disease of native coronary artery without angina pectoris; I12.9 Hypertensive chronic kidney disease with stage 1 through stage 4 chronic kidney disease, or unspecified chronic kidney disease; Z79.82 Long term (current) use of aspirin; Z79.899 Other long term (current) drug therapy; K21.9 Gastro-esophageal reflux disease without esophagitis; Z90.49 Acquired absence of other specified parts of digestive tract
CPT/HCPCS: 71046; 80048; 83880; 84484; 85025; 85610; 85730; 93005; 99284

== ENCOUNTER → 2024-08-27 | Outpatient (CLI) | payer MEDICARE, SELFPAY ==
[2024-08-27 17:14] LABS: AST(SGOT) 21 U/L (15-37); Alanine Aminotransfer ALT/SGPT 21 U/L (16-61); Albumin, Serum 3.9 g/dL (3.2-5.0); Alkaline Phosphatase 108 U/L (45-117); Anion Gap 4 (5-15); BUN 59 mg/dL (7-18); BUN/Creat Ratio 26.6 RATIO (10-20); Calcium,Total 9.3 mg/dL (8.5-10.1); Chloride 108 mmol/L (98-107); Creatinine, Serum 2.22 mg/dL (0.70-1.30); EST Glomerular Filtration Rate 31 mL/min (>60); Est Glom Filt Rate - Afr Amer 38 mL/min (>60); Globulin 3.9 g/dL (2.2-4.2); Glucose 97 mg/dL (74-106); Potassium 4.8 mmol/L (3.5-5.1); Protein, Total 7.8 g/dL (6.4-8.2); Sodium Level 136 mmol/L (136-145)
[2024-08-30 04:07] LABS: Endomysial Antibody IgA Negative (Negative); Immunoglobulin A 293 mg/dL (61-437); t-Transglutaminase IgA <2 U/mL (0-3)
== END | disposition home or self-care (01) ==
LOC: BIMLAB 15:41
PROVIDERS: PCP Internal Medicine; Referring Provider Internal Medicine; Visit Provider Internal Medicine
DX: R10.9 Unspecified abdominal pain (principal)

== ENCOUNTER → 2024-09-13 | Outpatient (CLI) | payer MEDICARE, SELFPAY ==
--- NOTE | 2024-09-13 06:36 | CT_ITS ---
PROCEDURE: ABDOMEN/PELVIS WITH CONTRAST REASON FOR EXAM: Epigastric pain; worse after eating. TECHNIQUE: Abdomen and pelvis CT with intravenous contrast. COMPARISON: None. FINDINGS: Lung bases: Coronary artery calcifications. Liver: Unremarkable. Gallbladder: Surgically absent. Spleen: Unremarkable. Pancreas: Unremarkable. Adrenals: Unremarkable. Kidneys: Left upper pole simple cyst. Bladder: Concentric urinary bladder wall thickening. Reproductive Organs: Enlarged prostate. Bowel: Normal caliber small bowel. Dense colonic stool. Gastric antrum wall thickening. Appendix: Normal. Lymph nodes: No suspicious lymph node enlargement. Vasculature: Mild atherosclerosis. Peritoneum / Retroperitoneum: No ascites. No free air. Bones: Degenerative changes of the spine. Prior ventral hernia repair. CT/Abdomen/Pelvis WITH Contrast IMPRESSION: Gastric antrum wall thickening which may represent gastritis. Concentric urinary bladder wall thickening which may be due to outlet obstructi on or cystitis. Correlate with urinalysis. Prostatomegaly. Dense colonic stool which may suggest constipation. One or more dose reduction techniques were used (e.g., Automated exposure contr ol, adjustment of the mA and/or kV according to patient size, use of iterative reconstruction technique). Reading Location: [id number]
== END | disposition home or self-care (01) ==
PROVIDERS: PCP Internal Medicine; Referring Provider Internal Medicine; Visit Provider Internal Medicine
DX: R10.32 Left lower quadrant pain (principal); R14.0 Abdominal distension (gaseous)
CPT/HCPCS: 74177; Q9967

== ENCOUNTER → 2024-10-02 | Outpatient (CLI) | payer MEDICARE, SELFPAY ==
--- NOTE | 2024-10-02 09:29 | US_ITS ---
PROCEDURE: ABDOMEN LIMITED REASON FOR EXAM: Fatty infiltration of the liver. COMPARISON: None FINDINGS: Liver: Diffusely echogenic suggesting fatty infiltration. Hepatomegaly. The liver measures 20.5 cm. Gallbladder: Surgically absent. Common bile duct: Normal measuring it measures 4 mm.. Pancreas: Visualized portions are sonographically unremarkable. Visualized portions of the right kidney are unremarkable. No right upper quadrant ascites. US/Abdomen Limited IMPRESSION: Hepatomegaly. Diffuse fatty infiltration of the liver. Reading Location: [place] [id number]
== END | disposition home or self-care (01) ==
LOC: US 09:28
PROVIDERS: PCP Internal Medicine; Referring Provider Nurse Practitioner Acute Care; Visit Provider Nurse Practitioner Acute Care
DX: K21.9 Gastro-esophageal reflux disease without esophagitis (principal); R10.13 Epigastric pain; R10.12 Left upper quadrant pain; R11.0 Nausea; R19.4 Change in bowel habit
CPT/HCPCS: 76705

== ENCOUNTER → 2024-10-04 | Outpatient (CLI) | payer MEDICARE, SELFPAY ==
[2024-10-04 12:44] LABS: PSA,Total- Diagnostic 3.81 ng/mL (0.0-4.0)
[2024-10-04 13:35] LABS: AST(SGOT) 13 U/L (15-37); Alanine Aminotransfer ALT/SGPT 19 U/L (16-61); Albumin, Serum 3.6 g/dL (3.2-5.0); Alkaline Phosphatase 137 U/L (45-117); Bilirubin, Direct 0.18 mg/dL (0.00-0.30); Globulin 4.3 g/dL (2.2-4.2); Protein, Total 7.9 g/dL (6.4-8.2)
[2024-10-04 13:36] LABS: Hepatitis B Surface Antibody Non-Reactive; Hepatitis B Surface Antigen Non-Reactive (Nonreactive); Hepatitis C Antibody Non-Reactive (Nonreactive)
[2024-10-04 13:46] LABS: Hemoglobin A1c 6.1 % (3.8-5.6)
[2024-10-05 05:07] LABS: Hepatitis A AB, Total Negative (Negative); Hepatitis B Core Ab Total Negative (Negative)
== END | disposition home or self-care (01) ==
PROVIDERS: Nurse Practitioner Acute Care; PCP Internal Medicine; Visit Provider Urology
DX: R97.20 Elevated prostate specific antigen [PSA] (principal); E11.9 Type 2 diabetes mellitus without complications; K76.0 Fatty (change of) liver, not elsewhere classified
CPT/HCPCS: 80076; 83036; 84153; 86704; 86706; 86708; 86803; 87340

== ENCOUNTER → 2024-10-18 | Outpatient (CLI) | payer MEDICARE, SELFPAY ==
--- NOTE | 2024-10-18 14:52 | STRESSREP_ITS ---
Stress Test Report Date: 10/18/2024 Procedure: Pharmacologic stress nuclear imaging study Indications: Chest pain, preop evaluation Consent: Per the patient Procedure: The patient underwent pharmacologic (Regadenoson 0.4mg ) evaluation with a peak heart rate of 65 beats per minute (42%predicted maximal heart rate) and a peak blood pressure of 148/88 mmHg. The baseline ECG demonstrated sinus rhythm. The peak pharmacologic ECG demonstrated no ischemic changes. There were no cardiac dysrhythmias pretest, during pharmacologic infusion, or recovery. There was no complaint of chest discomfort during pharmacologic infusion or recovery. The patient was injected with 14.5 millicuries of technetium 99m Cardiolite and subsequently rest SPECT Cardiolite nuclear imaging was obtained in the horizontal long, vertical long, and short axis views. The patient underwent pharmacologic (Regadenoson) evaluation. The patient was injected with 44.4 millicuries of technetium 99m Cardiolite and subsequently stress SPECT Cardiolite nuclear imaging was obtained in the horizontal long, vertical long, and short axis views. A gated Cardiolite study at peak stress was obtained. The examination was stopped secondary to completion of protocol. Rest and stress SPECT Cardiolite nuclear imaging status post realignment, normalization, and attenuation correction demonstrate a fixed small apical perfusion defect of mild intensity that could denote a previous nontransmural infarct versus attenuation artifact. There is end systolic thickening and brightening. The gated Cardiolite study demonstrates myocardial thickening and inward wall motion. The reported LVEF is 58%. Impression: 1. Pharmacologic (Regadenoson) evaluation 2. Peak pharmacologic ECG with no diagnostic changes. 3. There were no cardiac dysrhythmias pretest, during pharmacologic infusion, or recovery. 5. Small fixed apical perfusion defect that could denote previous nontransmural infarct. Attenuation artifact could not be excluded. No reversible ischemia. 6. The gated Cardiolite study reports an LVEF of 58%. This note was generated with [employer] software. It may contain incorrect words, spelling, and punctuation that were not noted in checking the note before signing.
== END | disposition home or self-care (01) ==
LOC: CVS 06:08
PROVIDERS: PCP Internal Medicine; Referring Provider Internal Medicine Cardiovascular Disease; Visit Provider Internal Medicine Cardiovascular Disease
DX: R07.9 Chest pain, unspecified (principal)
CPT/HCPCS: 78452; 93017; A9500; A4216; J2785

== ENCOUNTER → 2024-10-22 | Outpatient (CLI) | payer MEDICARE, SELFPAY ==
--- NOTE | 2024-10-22 07:16 | NM_ITS ---
PROCEDURE: GASTRIC EMPTYING STUDY - 4 HR REASON FOR EXAM: Epigastric pain. Nausea. TECHNIQUE: The patient ingested a combination of 1.1 mCi of technetium labeled sulfur colloid with the 2 eggs.. RADIOPHARMACEUTICAL: 1.1 mCi of sulfur colloid. COMPARISON: None. FINDINGS: The study was carried out until 4 hours. At 4 hours, there is 91% clearing of the radiopharmaceutical. This is within normal limits. NM/Gastric Emptying Study - 4 HR IMPRESSION: Normal gastric emptying study. Reading Location: [place] [address]
== END | disposition home or self-care (01) ==
LOC: NM 07:16
PROVIDERS: PCP Internal Medicine; Referring Provider Nurse Practitioner Acute Care; Visit Provider Nurse Practitioner Acute Care
DX: K21.9 Gastro-esophageal reflux disease without esophagitis (principal); R10.13 Epigastric pain; R10.12 Left upper quadrant pain; R11.0 Nausea; R19.4 Change in bowel habit
CPT/HCPCS: 78264; A9541

== ENCOUNTER 2024-10-27 16:33 | Observation (INO) | payer MEDICARE, SELFPAY ==
[2024-10-27 16:34] VITALS: BP 139/70; PULSE 70; RESP 24; TEMP 36.6; O2SAT 100; BMI 40.2
--- NOTE | 2024-10-27 16:48 | CT_ITS ---
EXAM: ABDOMEN/PELVIS W IV CONT ONLY CLINICAL HISTORY: PAIN COMPARISON: 09/13/2024 TECHNIQUE: Contrast-enhanced CT imaging of the abdomen and pelvis performed. 75 cc Isovue 370 administered FINDINGS: Stomach is mildly distended. Pancreas and spleen appear stable. Left upper pole renal cyst is stable Slight hepatic steatosis. No focal liver lesions. Surgical clips seen in the gallbladder fossa. There does appear to be some component of a small gallbladder remnant with small residual stone. This appears similar to prior examination. Correlation with surgical history recommended Robust vascular calcification. No aneurysm. Enlarged prostate gland measuring 6.7 cm Diverticulosis. No diverticulitis. Mild retained stool in the colon. Scattered degenerative changes detected in the lumbar spine CT/Abdomen/Pelvis W IV Cont ONLY IMPRESSION: Mildly distended stomach. Similar appearance to prior examination with surgica l clips seen in the gallbladder fossa. Probable small cystic duct remnant with gallstone again detected. This does not appear to be inflamed. Given the patient's history of right upper quadrant pain, ultrasound may be of diagnostic benefit Enlarged prostate gland. Correlation with PSA advised. No bowel obstruction. Mild constipation and diverticulosis. Reading Location: [id number]
--- NOTE | 2024-10-27 16:50 | ED.VIS.GI ---
HPI HPI - GI History of Present Illness Chief Complaint: Abd Pain Narrative Narrative: 68-year-old male presents with right upper quadrant/right flank pain that began at 1030 this morning. This was approximately 6-1/2 hours ago. Of note, he states he had an episode similar to this about a month to a month and a half ago. Is still being worked up for it. His symptoms resolved in 1 day. He had a stress test that was negative. He states that he was also sent for fatty liver to in [place] [facility] by gastroenterology here. This morning, after having coffee with creamer, started having right upper quadrant pain. It is described as dull and achy as if someone hit him with a baseball bat, but also there can be a sharp and stabbing component to it. He states he is dry heaving and that he tries to vomit but nothing will come up. He has not had a bowel movement in a day and a half. He has had hernia repair as well as cholecystectomy remotely. He presents because of pain in the right upper quadrant to right flank. No fevers or chills, no cough. No exacerbating or alleviating factors. [facility] Medical History Chest pain Dilated aortic root Diastolic dysfunction Morbidly obese Venous insufficiency Abnormal EKG Atherosclerosis of [place] coronary artery of [place] heart without angina pectoris Left ventricular hypertrophy Hyperlipidemia GERD (gastroesophageal reflux disease) Osteopenia Anemia Arthritis CKD stage 3 secondary to diabetes Hypertension Type 2 diabetes mellitus Home Medications ?Medication ?Instructions ?Recorded ?Last Taken ?Type aspirin 81 mg capsule 81 mg PO DAILY 04/03/23 10/27/24 History calcium 600 mg (as 1 tab PO BID 04/03/23 10/26/24 History carbonate)-vitamin D3 5 mcg (200 unit) tablet (Calcium 600 + D(3)) folic acid 800 mcg tablet 800 mcg PO DAILY 04/03/23 10/27/24 History mecobalamin (vitamin B12) 1,000 1,000 mcg PO .every other day 04/03/23 Unknown History mcg chewable tablet insulin aspart U-100 100 unit/mL See Protocol subcut ACHS 09/05/23 Unknown History (3 mL) subcutaneous pen (Novolog FlexPen U-100 Insulin aspart) ferrous sulfate 325 mg (65 mg 325 mg PO DAILY #90 tabs 01/20/24 10/27/24 Rx iron) tablet,delayed release blood sugar diagnostic (OneTouch #100 ea 02/07/24 Unknown Rx Ultra Test strips) olmesartan 5 mg tablet 5 mg PO DAILY #90 tabs 04/24/24 10/27/24 Rx omeprazole 40 mg capsule,delayed 40 mg PO DAILY #90 caps 05/18/24 10/27/24 Rx release insulin degludec 200 unit/mL (3 40 unit (0.2 mL) subcut QHS #9 mL 06/18/24 Unknown Rx mL) subcutaneous pen (Tresiba FlexTouch U-200 insulin) pen needle, diabetic 31 gauge x #300 ea 08/10/24 Unknown Rx 5/16 (BD Ultra-Fine Short Pen Needle) metoprolol tartrate 50 mg tablet 50 mg PO BID 90 days #180 tabs 08/16/24 10/27/24 Rx atorvastatin 20 mg tablet 20 mg PO QHS #90 tabs 10/18/24 10/26/24 Rx furosemide 40 mg tablet 40 mg PO DAILY #90 tabs 10/18/24 10/27/24 Rx allopurinol 100 mg tablet 100 mg PO BID #180 tabs 10/19/24 10/27/24 Rx amlodipine 10 mg tablet 10 mg PO DAILY #90 tabs 10/22/24 10/27/24 Rx Allergy/AdvReac Type Severity Reaction Status Date / Time latex Allergy Unknown Rash Verified 10/27/24 17:27 bacitracin (From Neosporin Allergy Rash Verified 10/27/24 17:27 ([id number])) neomycin (From Neosporin Allergy Rash Verified 10/27/24 17:27 ([id number])) nickel Allergy PT UNSURE Verified 10/27/24 17:27 OF REACTION polymyxin B (From Neosporin Allergy Rash Verified 10/27/24 17:27 ([id number])) Family History Grandmother Diabetes Father Heart disease Myocardial infarction 59 Cancer prostate and throat Hypertension Hyperlipidemia Mother Cancer lung Brother Aortic aneurysm Cancer prostate Surgical History Cataract extraction status History of foot surgery History of carpal tunnel release Amputation toe Hx of hernia repair H/O lithotripsy S/P cervical spinal fusion Hx of neck surgery Hx of cholecystectomy Social History household members: spouse current occupational 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 HEENT: No sore throat. No neck pain. No loss of vision. No rhinorrhea. Cardiovascular: No chest pain. No palpitations. No pedal edema. Respiratory: No cough, no shortness of breath. Abdominal: Right upper quadrant to right flank abdominal pain. Described as dull as if someone hit with a baseball bat. Positive nausea and dry heaving. Constipation for a day and a half. Genitourinary: No dysuria. No hematuria. Musculoskeletal: No myalgias. No arthralgias. EXAM Physical Exam Narrative Exam Narrative: Afebrile. Vital signs noted. Nontoxic-appearing. Cardiovascular examination reveals a regular rate and rhythm. Lungs are clear to auscultation bilaterally. The abdomen is soft with mild tenderness to palpation in the right upper quadrant. Negative Woodward sign. No rebound or guarding. Positive bowel sounds. Neurological examination is nonfocal and nonlateralizing. He is able to transfer to the cot and lay back and sit up without difficulty. Const Vital Signs: 10/27/24 16:34 10/27/24 19:00 10/27/24 21:00 Temperature 97.9 F Temperature Source Temporal Pulse Rate 70 68 82 Respiratory Rate 24 H 16 18 Blood Pressure 139/70 H 124/57 H 128/66 H Blood Pressure Mean 93 79 86 Pulse Ox 100 90 95 Oxygen Delivery Method Room Air Room Air Room Air 10/27/24 21:40 Temperature 98 F Temperature Source Pulse Rate 82 Respiratory Rate 18 Blood Pressure 148/66 H Blood Pressure Mean 93 Pulse Ox 97 Oxygen Delivery Method MDM MDM MDM Narrative Medical decision making narrative: Differential diagnosis includes but not limited to colitis versus pancreatitis versus ureterolithiasis. I have very low suspicion for any cholecystitis or gallbladder pathology because he is status post cholecystectomy. He was administered morphine and ondansetron for analgesia. Although he states that in the past as part of his workup he has had CT scanning of his abdomen, I do feel that this will need to be obtained to rule out any diverticulitis, colitis, or obstruction. I reviewed his laboratory work and he has slight elevation of his white count of 13.4 with hemoglobin stable at 12.6, platelet count normal at 214. Sodium normal at 137, potassium 4.7, CO2 slightly low at 19.6 which I think may be from hyperventilation. BUN elevated 36 with creatinine 1.70, but in review of his prior laboratories he has chronic kidney disease and his creatinine has been much higher. AST is normal at 27 and ALT 12 with lipase 14. I doubt pancreatitis. Urinalysis is negative for infection on review. I do not feel antibiotics are indicated. I reviewed the radiology report of the CT of the abdomen and pelvis. There is concerned that there is remnant of the cystic duct with a calcification/stone contained within. Patient states that he had cholecystectomy in 2021 in [place]. He is having intractable pain and required 3 doses of medication. I did discuss the patient directly with the radiologist and while he states that the CT is essentially unchanged and does not appear inflammatory, there is concern is for a stone in the cystic duct. I discussed patient with Dr. Foster with general surgery. While he recommends that ultrasound be performed, does not need to be emergently, and recommended admission by medicine, and consult to surgery and possibly gastroenterology. I was able to discuss the patient with Dr. Tan as well, who agrees with inpatient consultation for his intractable right upper quadrant pain. I will discuss patient with the hospitalist for admission. Patient discussed with Dr. Schroeder. patient is in stable condition. History & Record Review Discussion w/independent historian: Patient Lab Data Attestation: I reviewed the patient's lab results. Labs: Laboratory Results - last 24 hr 10/27/24 10/27/24 17:01 18:30 WBC 13.4 H RBC 3.95 L Hgb 12.6 L Hct 37.8 L MCV 95.7 H MCH 31.9 MCHC 33.3 RDW Std Deviation 46.8 H RDW Coeff of Germain 13.2 Plt Count 214 MPV 10.9 Immature Gran % (Auto) 0.500 Neut % (Auto) 79.9 H Lymph % (Auto) 15.0 L Murray % (Auto) 3.0 Eos % (Auto) 0.9 Baso % (Auto) 0.7 Absolute Neuts (auto) 10.7 H Absolute Lymphs (auto) 2.00 Nucleated RBC % 0 Sodium 137 Potassium 4.7 Chloride 103 Carbon Dioxide 19.6 L Anion Gap 15 BUN 36 H Creatinine 1.70 H Estim Creat Clear Calc 50.76 Est GFR (MDRD) Non-Af 43 L BUN/Creatinine Ratio 21.4 H Glucose 131 H Calcium 9.6 Total Bilirubin 0.44 AST 27 ALT 12 Alkaline Phosphatase 129 Total Protein 8.1 Albumin 4.4 Globulin 3.7 Albumin/Globulin Ratio 1.2 Lipase 14 Urine Color Straw Urine Clarity Clear Urine pH 6.0 Ur Specific [place] 1.010 Urine Protein 30 H Urine Glucose (UA) Normal Urine Ketones 5 H Urine Occult Blood Negative Urine Nitrite Negative Urine Bilirubin Negative Urine Urobilinogen Normal Ur Leukocyte Esterase Negative Urine RBC 0 SEEN Urine WBC 0 SEEN Ur Squamous Epith Cells 0 SEEN Urine Bacteria RARE Hyaline Casts 0-5 SEEN Urine Mucus 0 SEEN Radiography Diagnostic Testing: Clinical Impression(s) from Imaging Studies Abdomen/Pelvis CT 10/27/24 16:48 IMPRESSION: Mildly distended stomach. Similar appearance to prior examination with surgical clips seen in the gallbladder fossa. Probable small cystic duct remnant with gallstone again detected. This does not appear to be inflamed. Given the patient's history of right upper quadrant pain, ultrasound may be of diagnostic benefit Enlarged prostate gland. Correlation with PSA advised. No bowel obstruction. Mild constipation and diverticulosis. Reading Location: [facility] Management Discussion w/another healthcare provider: Hospitalist, [employer] (Dr. Foster, Dr. Tan) and Radiologist Discharge Plan Dx/Rx/DC Orders Clinical Impression: Right upper quadrant abdominal pain, Calculus of cystic duct, Intractable abdominal pain Disposition Disposition: Acute Care Hospital [facility]
[2024-10-27] MEDS: Morphine 4 MG/ML Syringe IV ×2 (16:58→17:39)
[2024-10-27] MEDS: Ondansetron 4 MG/2 ML Vial IV ×2 (16:58→17:55)
[2024-10-27 17:16] LABS: Absolute Neutrophil Count 10.7 X10^3/uL (2.0-7.7); Basophil# 0.09 X10^3/uL; Basophil% 0.7 % (0-1); Eosinophil# 0.12 X10^3/uL; Eosinophils% 0.9 % (0-5); Hematocrit 37.8 % (40-54); Hemoglobin 12.6 g/dL (13.0-16.5); Mean Corp Hgb Conc 33.3 g/dL (32-36); Mean Corpuscular Hgb 31.9 pg (27.0-32.0); Mean Corpuscular Volume 95.7 fL (80-94); Mean Platelet Vol. 10.9 fl (6.2-12.0); NRBC Flagged by Analyzer 0 % (0-5); Neutrophil # 10.67 X10^3/uL (2.7-7.7); Neutrophil % 79.9 % (47-70); Platelet Count 214 K/mm3 (150-450); RBC Distribution Width CV 13.2 % (11.6-14.6); RBC Distribution Width SD 46.8 fl (35.1-43.9); Red Blood Count 3.95 M/mm3 (4.6-6.2); White Blood Count 13.4 K/mm3 (4.4-11.0)
[2024-10-27 17:34] LABS: Lipase 14 U/L (13-75)
[2024-10-27 17:36] LABS: ALB/GLOB Ratio 1.2 RATIO (0.9-2.4); AST(SGOT) 27 U/L (<=37); Alanine Aminotransfer ALT/SGPT 12 U/L (<=46); Albumin, Serum 4.4 g/dL (3.4-4.8); Alkaline Phosphatase 129 U/L (40-129); Anion Gap 15 (5-15); BUN 36 mg/dL (4-19); BUN/Creat Ratio 21.4 RATIO (10-20); Calcium,Total 9.6 mg/dL (7.6-11.0); Carbon Dioxide 19.6 mmol/L (21.0-32.0); Chloride 103 mmol/L (98-108); EST Glomerular Filtration Rate 43 (>60); Estimated Creatinine Clearance 50.76 ml/min (50-250); Globulin 3.7 g/dL (2.2-4.2); Glucose 131 mg/dL (70-99); Potassium 4.7 mmol/L (3.3-5.1); Protein, Total 8.1 g/dL (5.9-8.4); Sodium Level 137 mmol/L (133-145); Total Bilirubin 0.44 mg/dL (0.00-1.30)
[2024-10-27] MEDS: Mag Hydrox/Al Hydrox/Simeth 30 ML UDC PO (17:40)
[2024-10-27] MEDS: Lidocaine 2% Viscous15 ML UDC 15 ML PO (17:40)
[2024-10-27 18:41] LABS: Color, Urine Straw (Yellow); Glucose, Dipstick Normal (Normal); Ketone-Dipstick 5 mg/dl (Negative); Leukocyte Esterase-Dipstick Negative /ul (Negative); Mucous, Urine 0 SEEN /hpf (<or=2+); Nitrite-Dipstick Negative (Negative); Occult Blood-Urine Negative /ul (Negative); Protein-Dipstick 30 mg/dl (Negative); Squamous Epithelial Cells - UA 0 SEEN /hpf (0-5); Urine Bilirubin Dipstick Negative (Negative); Urine Clarity Clear (Clear); Urine Urobilinogen Normal (Normal); White Blood Cells 0 SEEN /hpf (0-5)
[2024-10-27 18:52] LABS: Bacteria RARE /hpf (None Seen); Red Blood Cells-Urine 0 SEEN /hpf (0-5)
[2024-10-27 18:53] LABS: Hyaline Cast 0-5 SEEN /lpf (0-5)
[2024-10-27 19:00] VITALS: BP 124/57; PULSE 68; RESP 16; O2SAT 90
[2024-10-27] MEDS: morphine 8 MG/ML Syringe 6 MG IV (19:41)
[2024-10-27 21:00] VITALS: BP 128/66; PULSE 82; RESP 18; O2SAT 95
--- NOTE | 2024-10-27 21:22 | PCM.HP.STD ---
[facility] Date of Admission: 10/27/24 Date of Service: 10/27/24 Chief Complaint: RUQ pain, Nausea and Dry Heaving. [facility] Narrative DAVID CARDONA, is a 68 M with a past medical history of essential hypertension; on amlodipine, olmesartan, metoprolol and furosemide, hyperlipidemia; on atorvastatin, morbid obesity; with BMI of 40.3 this admission, history of fatty liver with metabolic dysfunction-associated steatotic liver disease; previously evaluated by gastroenterology [facility]REL FILLER here and at [facility], history of cholecystectomy; with chronic small cystic duct remnant with gallstone previously noted by gastroenterology, DM-2; of unknown control on insulin degludec 40 units SQ at bedtime and insulin aspart AC/HS, diabetic neuropathy, CAD; on BASA daily, history of LVH, history of dilated aortic root, history of diastolic dysfunction, CKD; stage IIIb, history of iron deficiency anemia; on ferrous sulfate, history of venous insufficiency, history of hernia; s/p repair, history of lithotripsy, 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 Mr. Cardona reports his symptoms began approximately 10:30 AM earlier today with the abrupt-onset of severe Right upper quadrant pain at Mike had coffee with creamer. He describes the pain as dull but severe, as if someone hit him with a bat, but there is also a sharp and stabbing component to it as well with nothing seeming to make the pain better or worse. He also admits to severe nausea with frequent dry heaving but nothing will come up. He states he has not had a bowel movement in approximately 1-1/2 days. He states he had a similar episode approximately 1-1/2 months ago and is still being worked up for it with suspicion it may be related to his chronic small cystic duct remnant with gallstone - but no intervention has been undertaken since that time, likely because his symptoms resolved within 1 day. As part of his workup he also underwent a recent cardiac stress test which was reportedly negative. He denies associated fever, chills, changes in vision, runny nose, sore throat, chest pain, palpitations, heart racing, shortness of breath, rash, dysuria or headache. In the ER he was noted to have CT evidence of mildly distended stomach with similar prior appearance to previous CT examination with surgical clips seen in the gallbladder fossa and probable small cystic duct remnant with gallstone again detected that does not appear to be inflamed with ultrasound recommended in addition to enlarged prostate with correlation with PSA advised and no bowel obstruction but with mild constipation and diverticulosis. He was also noted to have leukocytosis of 13.4K present on admission with otherwise unremarkable labs and vital signs. The ER physician then contacted the general surgeon on-call, Dr. Foster, who recommended admission to medicine as he does not recommend surgical intervention at this time. The ER physician also contacted the real estate transaction coordinator on-call who will see patient on rounds in a.m. for further recommendations. He was then admitted to the general medical floor under observation status for ongoing care for a stay that is expected to be less than 2 midnights. FORMERLY [facility], [facility]–1983 Medical History Chest pain Dilated aortic root Diastolic dysfunction Morbidly obese Venous insufficiency Abnormal EKG Atherosclerosis of [place] coronary artery of [place] heart without angina pectoris Left ventricular hypertrophy Hyperlipidemia GERD (gastroesophageal reflux disease) Osteopenia Anemia Arthritis CKD stage 3 secondary to diabetes Hypertension Type 2 diabetes mellitus Home Medications ?Medication ?Instructions ?Recorded ?Last Taken ?Type aspirin 81 mg capsule 81 mg PO DAILY 04/03/23 10/27/24 History calcium 600 mg (as 1 tab PO BID 04/03/23 10/26/24 History carbonate)-vitamin D3 5 mcg (200 unit) tablet (Calcium 600 + D(3)) folic acid 800 mcg tablet 800 mcg PO DAILY 04/03/23 10/27/24 History mecobalamin (vitamin B12) 1,000 1,000 mcg PO .every other day 04/03/23 Unknown History mcg chewable tablet insulin aspart U-100 100 unit/mL See Protocol subcut ACHS 09/05/23 Unknown History (3 mL) subcutaneous pen (Novolog FlexPen U-100 Insulin aspart) ferrous sulfate 325 mg (65 mg 325 mg PO DAILY #90 tabs 01/20/24 10/27/24 Rx iron) tablet,delayed release blood sugar diagnostic (OneTouch #100 ea 02/07/24 Unknown Rx Ultra Test strips) olmesartan 5 mg tablet 5 mg PO DAILY #90 tabs 04/24/24 10/27/24 Rx omeprazole 40 mg capsule,delayed 40 mg PO DAILY #90 caps 05/18/24 10/27/24 Rx release insulin degludec 200 unit/mL (3 40 unit (0.2 mL) subcut QHS #9 mL 06/18/24 Unknown Rx mL) subcutaneous pen (Tresiba FlexTouch U-200 insulin) pen needle, diabetic 31 gauge x #300 ea 08/10/24 Unknown Rx 5/16 (BD Ultra-Fine Short Pen Needle) metoprolol tartrate 50 mg tablet 50 mg PO BID 90 days #180 tabs 08/16/24 10/27/24 Rx atorvastatin 20 mg tablet 20 mg PO QHS #90 tabs 10/18/24 10/26/24 Rx furosemide 40 mg tablet 40 mg PO DAILY #90 tabs 10/18/24 10/27/24 Rx allopurinol 100 mg tablet 100 mg PO BID #180 tabs 10/19/24 10/27/24 Rx amlodipine 10 mg tablet 10 mg PO DAILY #90 tabs 10/22/24 10/27/24 Rx Allergy/AdvReac Type Severity Reaction Status Date / Time latex Allergy Unknown Rash Verified 10/27/24 17:27 bacitracin (From Neosporin Allergy Rash Verified 10/27/24 17:27 ([id number])) neomycin (From Neosporin Allergy Rash Verified 10/27/24 17:27 ([id number])) nickel Allergy PT UNSURE Verified 10/27/24 17:27 OF REACTION polymyxin B (From Neosporin Allergy Rash Verified 10/27/24 17:27 ([id number])) Family History Grandmother Diabetes Father Heart disease Myocardial infarction 59 Cancer prostate and throat Hypertension Hyperlipidemia Mother Cancer lung Brother Aortic aneurysm Cancer prostate Surgical History Cataract extraction status History of foot surgery History of carpal tunnel release Amputation toe Hx of hernia repair H/O lithotripsy S/P cervical spinal fusion Hx of neck surgery Hx of cholecystectomy Social History household members: spouse current occupational 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 Eyes: Patient denies changes in vision or discharge from eyes. ENT: Patient denies runny nose, sore throat or ear pain. Resp: Patient denies shortness of breath or cough. CV: Patient denies chest pain, palpitations, heart racing or lower extremity edema. GI: Patient admits to severe right upper quadrant abdominal pain with nausea and dry heaves as per HPI. : Patient denies dysuria, hematuria or urinary frequency. MSK: Patient denies arthralgias or myalgias. Skin: Patient denies rash, abscess, wounds or jaundice. Psych: Patient denies symptoms of uncontrolled depression or anxiety. Neuro: Patient denies headache, paresthesias or focal neurologic deficits. Allergy: Patient denies lip swelling, tongue swelling or urticaria. Hematology: Patient denies easy bleeding or easy bruisability. Endocrinology: Patient denies polyuria, polydipsia or polyphagia. 14 point ROS otherwise negative except for positives noted above in HPI. Vital Signs Vital Signs Vital Signs: 10/27/24 16:34 10/27/24 19:00 10/27/24 21:00 Temperature 97.9 F Temperature Source Temporal Pulse Rate 70 68 82 Respiratory Rate 24 H 16 18 Blood Pressure 139/70 H 124/57 H 128/66 H Blood Pressure Mean 93 79 86 Pulse Ox 100 90 95 Oxygen Delivery Method Room Air Room Air Room Air Weight Weight: 257 lb 0.944 oz Body Mass Index (BMI) 40.2 Physical Exam Const alert and oriented x3 Constitutional Narrative: Patient appears to be in significant pain. General Appearance: cooperative HEENT normocephalic, head/scalp atraumatic and hearing grossly normal bilaterally HEENT Narrative: Mucous membranes dry. Eyes PERRL, EOMs intact bilaterally and conjunctivae normal Neck no lymphadenopathy and supple Resp normal respiratory effort, no retractions, no use of accessory muscles and clear to auscultation bilaterally Cardio regular rate and regular rhythm GI soft to palpation and non-distended GI Narrative: Abdomen is soft with right upper quadrant tenderness to palpation. Negative Woodward sign, no guarding or rebound noted with normal bowel sounds. Results Lab / Micro Data 10/28/24 05:06 10/28/24 05:06 Labs: Laboratory Results - last 24 hr 10/27/24 17:01: WBC 13.4 H, RBC 3.95 L, Hgb 12.6 L, Hct 37.8 L, MCV 95.7 H, MCH 31.9, MCHC 33.3, RDW Std Deviation 46.8 H, RDW Coeff of Germain 13.2, Plt Count 214, MPV 10.9, Immature Gran % (Auto) 0.500, Neut % (Auto) 79.9 H, Lymph % (Auto) 15.0 L, [place] % (Auto) 3.0, Eos % (Auto) 0.9, Baso % (Auto) 0.7, Absolute Neuts (auto) 10.7 H, Absolute Lymphs (auto) 2.00, Nucleated RBC % 0, Sodium 137, Potassium 4.7, Chloride 103, Carbon Dioxide 19.6 L, Anion Gap 15, BUN 36 H, Creatinine 1.70 H, Estim Creat Clear Calc 50.76, Est GFR (MDRD) Non-Af 43 L, BUN/Creatinine Ratio 21.4 H, Glucose 131 H, Calcium 9.6, Total Bilirubin 0.44, AST 27, ALT 12, Alkaline Phosphatase 129, Total Protein 8.1, Albumin 4.4, Globulin 3.7, Albumin/Globulin Ratio 1.2, Lipase 14 10/27/24 18:30: Urine Color Straw, Urine Clarity Clear, Urine pH 6.0, Ur Specific [place] 1.010, Urine Protein 30 H, Urine Glucose (UA) Normal, Urine Ketones 5 H, Urine Occult Blood Negative, Urine Nitrite Negative, Urine Bilirubin Negative, Urine Urobilinogen Normal, Ur Leukocyte Esterase Negative, Urine RBC 0 SEEN, Urine WBC 0 SEEN, Ur Squamous Epith Cells 0 SEEN, Urine Bacteria RARE, Hyaline Casts 0-5 SEEN, Urine Mucus 0 SEEN Imaging Radiology Impression Abdomen/Pelvis CT 10/27/24 16:48 IMPRESSION: Mildly distended stomach. Similar appearance to prior examination with surgical clips seen in the gallbladder fossa. Probable small cystic duct remnant with gallstone again detected. This does not appear to be inflamed. Given the patient's history of right upper quadrant pain, ultrasound may be of diagnostic benefit Enlarged prostate gland. Correlation with PSA advised. No bowel obstruction. Mild constipation and diverticulosis. Reading Location: [facility] Assessment & Plan Assessment/Plan (1) Calculus of cystic duct: (2) Right upper quadrant abdominal pain: (3) Nausea: (4) Dry heaves: (5) Constipation: QUALIFIERS: Constipation type: unspecified constipation type Qualified Code(s): K59.00 - Constipation, unspecified (6) Leukocytosis: QUALIFIERS: Leukocytosis type: unspecified Qualified Code(s): D72.829 - Elevated white blood cell count, unspecified (7) Fatty liver: (8) Metabolic dysfunction-associated steatotic liver disease (MASLD): (9) Morbid obesity with BMI of 40.0-44.9, adult: PLAN: Plan 1. CT evidence of mildly distended stomach with similar prior appearance to previous CT examination with surgical clips seen in the gallbladder fossa and probable small cystic duct remnant with gallstone again detected that does not appear to be inflamed with ultrasound recommended - Admit to general medical floor under observation status. Will obtain ultrasound as per radiologist recommendations. This finding was noted previously with extensive workup undertaken since that time that has been hitherto unrevealing. Keep strict NPO. Start empiric IV pantoprazole daily. Give ondansetron IV as needed for nausea and vomiting. Give promethazine IM as needed for breakthrough nausea and vomiting. Give below-dose ketorolac IV as needed for [id number] (level 1-5/10) pain or fever. Give morphine IV as needed for severe (level 6-10/10) pain. Finally, we will consult general surgeon and real estate transaction coordinator to see this patient on rounds in the a.m. for further recommendations regarding definitive treatment to avoid serial readmission with help appreciated in advance. 2. Intractable RUQ pain with Nausea, Dry heaves and Constipation noted on CT this admission attributable to #1 - Follow plan for treatment with as needed antiemetics and pain medications as noted in #1. Give enema to promote bowel movement and then start bowel regimen after workup is completed. 3. Leukocytosis of 13.4K present on admission suspected to be due to acute stress response related to #1 & #2 - Check CBC daily to follow trend with no active signs of infection at this time. 4. History of fatty liver with metabolic dysfunction-associated steatotic liver disease; previously evaluated by gastroenterology BARREL FILLER here and at [facility] In the setting of a known history of cholecystectomy adding to the medical complexity of #1 - #3 - Noted. 5. Morbid obesity; with BMI of 40.3 this admission adding to the burden of disease outlined from #1 - #4 - Weight loss will be recommended. Check TSH. This complicates his case and may hamper recovery. 6. Incidentally noted CT evidence of enlarged prostate with correlation with PSA advised - Check PSA screen. 7. Essential hypertension; on amlodipine, olmesartan, metoprolol and furosemide -hold home regimen until patient can safely tolerate oral intake. We will also give IV hydralazine as needed for systolic blood pressure greater than 160 mmHg. 8. Hyperlipidemia; on atorvastatin - Hold statin until patient can safely tolerate oral intake. Check lipid profile. 9. DM-2; of unknown control on insulin degludec 40 units SQ at bedtime and insulin aspart AC/HS plus diabetic neuropathy - Keep NPO for now. Check FSBS every 6 hours. Give the lowest intensity sliding scale insulin. Check hemoglobin A1c to objectively evaluate quality of diabetic control. 10. CAD; on BASA daily - Resume BASA daily after intervention and serialize troponin. 11. History of LVH - Noted. 12. History of dilated aortic root - Noted. 13. History of diastolic dysfunction - Noted. 14. CKD; stage IIIb - Stable. We will gently hydrate and check renal indices daily to ensure continued stability. 15. History of iron deficiency anemia; on ferrous sulfate - Stable with hemoglobin of 12.6 g/dL and MCV of 95.7 fL present on admission. 16. History of venous insufficiency - Stable. 17. History of hernia; s/p repair - Noted. 18. History of lithotripsy - Noted. 19. History of toe amputation due to infection - Noted. 20. History of cataracts; s/p extraction - Noted for the sake of completeness. 21. GERD; on omeprazole - Patient switched to IV PPI for #1. 22. History of gout; on allopurinol - Chronic and stable with no evidence of acute flare. 23. Osteopenia - Stable. 24. OA; primarily of the cervical spine; s/p cervical fusion - Stable. Will follow pain scale outlined in #1. 25. DVT prophylaxis - SCD's only in case surgical and/or GI intervention is required to reduce risk of potential bleeding complications. Total time: Approximately (but not less than) 85 minutes. Charges/Coding Visit Charges OBSV E&M: 95896 Observ/hosp same date L3
[2024-10-27 21:40] VITALS: BP 148/66; PULSE 82; RESP 18; TEMP 36.6; O2SAT 97
[2024-10-27 23:03] VITALS: BMI 39.6
[2024-10-27] MEDS: Pantoprazole Sodium 40 MG in 0.9% Normal Saline (100mL MB+) 100 ML 330 MG IV (23:27)
[2024-10-27] MEDS: 0.9% Normal Saline (1000mL) 1,000 ML 100 ML IV (23:27)
[2024-10-27] MEDS: Insulin Glargine-YFGN 100 UNIT/ML Pen 10 UNIT SC (23:28)
[2024-10-27 23:29] VITALS: BP 159/85; PULSE 86; RESP 18; TEMP 36.6; O2SAT 99
[2024-10-27] MEDS: Ketorolac 15 MG/ML Vial IV (23:34)
[2024-10-27 23:41] LABS: Troponin T High Sensitivity 20 ng/L (<=22)
[2024-10-27 23:43] LABS: Vitamin B12 2067 pg/mL (180-914)
[2024-10-28 00:03] LABS: Bedside Glucose 183 mg/dL (74-106)
[2024-10-28 01:25] LABS: Troponin T High Sens 2 HR 21 ng/L (<=22)
[2024-10-28 06:06] LABS: Absolute Lymphocyte Count 1.45 X10^3/uL (0.83-4.51); Absolute Neutrophil Count 10.4 X10^3/uL (2.0-7.7); Basophil# 0.03 X10^3/uL; Basophil% 0.2 % (0-1); Eosinophil# 0.01 X10^3/uL; Eosinophils% 0.1 % (0-5); Hematocrit 34.6 % (40-54); Hemoglobin 11.7 g/dL (13.0-16.5); Lymphocyte # 1.45 X10^3/ul (0.83-4.51); Lymphocyte % 11.5 % (19-41); Mean Corp Hgb Conc 33.8 g/dL (32-36); Mean Corpuscular Hgb 31.9 pg (27.0-32.0); Mean Corpuscular Volume 94.3 fL (80-94); Mean Platelet Vol. 10.7 fl (6.2-12.0); Monocyte# 0.74 X10^3/uL; Monocyte% 5.9 % (0-10); NRBC Flagged by Analyzer 0 % (0-5); Neutrophil # 10.38 X10^3/uL (2.7-7.7); Neutrophil % 82.1 % (47-70); Platelet Count 191 K/mm3 (150-450); RBC Distribution Width CV 13.2 % (11.6-14.6); RBC Distribution Width SD 45.8 fl (35.1-43.9); Red Blood Count 3.67 M/mm3 (4.6-6.2); White Blood Count 12.6 K/mm3 (4.4-11.0)
[2024-10-28 06:14] LABS: International Normalized Ratio 1.1; Prothrombin Time (Protime)PT. 14.3 SECONDS (11.7-14.9)
[2024-10-28 06:18] VITALS: BP 150/61; PULSE 74; RESP 18; TEMP 36.8; O2SAT 95
[2024-10-28 06:28] LABS: Hemoglobin A1c 6.3 % (<=5.6)
[2024-10-28 06:52] LABS: ALB/GLOB Ratio 1.2 RATIO (0.9-2.4); AST(SGOT) 18 U/L (<=37); Alanine Aminotransfer ALT/SGPT 11 U/L (<=46); Albumin, Serum 3.8 g/dL (3.4-4.8); Alkaline Phosphatase 113 U/L (40-129); Anion Gap 13 (5-15); BUN 33 mg/dL (4-19); BUN/Creat Ratio 21.6 RATIO (10-20); Calcium,Total 8.9 mg/dL (7.6-11.0); Carbon Dioxide 19.4 mmol/L (21.0-32.0); Chloride 104 mmol/L (98-108); Cholesterol 69 mg/dL (<=200); Creatinine, Serum 1.53 mg/dL (0.70-1.20); EST Glomerular Filtration Rate 49 (>60); Estimated Creatinine Clearance 55.96 ml/min (50-250); Globulin 3.1 g/dL (2.2-4.2); Glucose 131 mg/dL (70-99); High Density Lipoprotein 33 mg/dL; Low Density Lipoprotein Calc. 24 mg/dL; Phosphorus 3.9 mg/dL (2.7-4.5); Potassium 4.6 mmol/L (3.3-5.1); Protein, Total 6.9 g/dL (5.9-8.4); Sodium Level 137 mmol/L (133-145); Total Bilirubin 0.58 mg/dL (0.00-1.30); Triglycerides 62 mg/dL; Very Low Density Lipoprotein 12 mg/dL (5-40); cholesterol:hdl ratio screen 2.09
[2024-10-28 07:10] LABS: Bedside Glucose 127 mg/dL (74-106)
--- NOTE | 2024-10-28 07:27 | PN.HOSP_ITS ---
Reason for Visit Reason for Visit: Diagnoses Elevated white blood cell count, unspecified (10/27/24) Morbid (severe) obesity due to excess calories (10/27/24) Constipation, unspecified (10/27/24) Fatty (change of) liver, not elsewhere classified (10/27/24) Calculus of gallbladder without cholecystitis without obstruction (10/27/24) Right upper quadrant pain (10/27/24) Nausea (10/27/24) Vomiting, unspecified (10/27/24) Body mass index [BMI] 40.0-44.9, adult (10/27/24) Subjective Subjective No further abdominal pain. The pain he had was similar to when he need his gall bladder out. It has been recurrent without definitive etiology. He said he has been evaluated up in [place] and has had GES that was negative. Objective Data Objective Data Vital Signs: Vital Signs Temp Pulse Resp BP Pulse Ox O2 Del Method 36.8 C 74 18 150/61 H 95 Room Air 10/28/24 06:18 10/28/24 06:18 10/28/24 06:18 10/28/24 06:18 10/28/24 06:18 10/28/24 06:18 Oxygen Delivery Method Room Air Weight: 114.9 kg Body Mass Index (BMI) 39.6 Intake & Output: Intake and Output for Last 24 Hours 10/26/24 10/27/24 10/28/24 23:59 23:59 23:59 Intake Total 110 / 110 Balance 110 / 110 Lab / Micro Data 10/28/24 05:06 10/28/24 05:06 Labs: Laboratory Results - last 24 hr 10/27/24 17:01: WBC 13.4 H, RBC 3.95 L, Hgb 12.6 L, Hct 37.8 L, MCV 95.7 H, MCH 31.9, MCHC 33.3, RDW Std Deviation 46.8 H, RDW Coeff of Germain 13.2, Plt Count 214, MPV 10.9, Immature Gran % (Auto) 0.500, Neut % (Auto) 79.9 H, Lymph % (Auto) 15.0 L, [place] % (Auto) 3.0, Eos % (Auto) 0.9, Baso % (Auto) 0.7, Absolute Neuts (auto) 10.7 H, Absolute Lymphs (auto) 2.00, Nucleated RBC % 0, Sodium 137, Potassium 4.7, Chloride 103, Carbon Dioxide 19.6 L, Anion Gap 15, BUN 36 H, C reatinine 1.70 H, Estim Creat Clear Calc 50.76, Est GFR (MDRD) Non-Af 43 L, B UN/Creatinine Ratio 21.4 H, Glucose 131 H, Calcium 9.6, Magnesium 2.0, Total Bilirubin 0.44, AST 27, ALT 12, Alkaline Phosphatase 129, Total Protein 8.1, Albumin 4.4, Globulin 3.7, Albumin/Globulin Ratio 1.2, Lipase 14, Vitamin B12 2067 H 10/27/24 18:30: Urine Color Straw, Urine Clarity Clear, Urine pH 6.0, Ur Specific [place] 1.010, Urine Protein 30 H, Urine Glucose (UA) Normal, Urine Ketones 5 H, Urine Occult Blood Negative, Urine Nitrite Negative, Urine Bilirubin Negative, Urine Urobilinogen Normal, Ur Leukocyte Esterase Negative, Urine RBC 0 SEEN, Urine WBC 0 SEEN, Ur Squamous Epith Cells 0 SEEN, Urine Bacteria RARE, Hyaline Casts 0-5 SEEN, Urine Mucus 0 SEEN 10/27/24 22:35: Troponin T High Sens 20, PSA Screen 3.00, TSH 1.020 10/27/24 23:23: POC Glucose 183 H 10/28/24 00:49: Troponin T Hi Sens 2 Hr 21, Serum Folate 34.30 10/28/24 05:06: WBC 12.6 H, RBC 3.67 L, Hgb 11.7 L, Hct 34.6 L, MCV 94.3 H, MCH 31.9, MCHC 33.8, RDW Std Deviation 45.8 H, RDW Coeff of Germain 13.2, Plt Count 191, MPV 10.7, Immature Gran % (Auto) 0.200, Neut % (Auto) 82.1 H, Lymph % (Auto) 11.5 L, [place] % (Auto) 5.9, Eos % (Auto) 0.1, Baso % (Auto) 0.2, Absolute Neuts (auto) 10.4 H, Absolute Lymphs (auto) 1.45, Nucleated RBC % 0, PT 14.3, INR 1.1, Sodium 137, Potassium 4.6, Chloride 104, Carbon Dioxide 19.4 L, Anion Gap 13, B UN 33 H, Creatinine 1.53 H, Estim Creat Clear Calc 55.96, Est GFR (MDRD) Non-Af 49 L, BUN/Creatinine Ratio 21.6 H, Glucose 131 H, Hemoglobin A1c 6.3, Calcium 8.9, Phosphorus 3.9, Total Bilirubin 0.58, AST 18, ALT 11, Alkaline Phosphatase 113, Total Protein 6.9, Albumin 3.8, Globulin 3.1, Albumin/Globulin Ratio 1.2, Triglycerides 62, Cholesterol 69, LDL Cholesterol, Calc 24, VLDL Cholesterol 12, HDL Cholesterol 33 L, Cholesterol/HDL Ratio 2.09 10/28/24 06:22: POC Glucose 127 H Radiography Diagnostic Testing: Radiology Impression Abdomen/Pelvis CT 10/27/24 16:48 IMPRESSION: Mildly distended stomach. Similar appearance to prior examination with surgical clips seen in the gallbladder fossa. Probable small cystic duct remnant with gallstone again detected. This does not appear to be inflamed. Given the patient's history of right upper quadrant pain, ultrasound may be of diagnostic benefit Enlarged prostate gland. Correlation with PSA advised. No bowel obstruction. Mild constipation and diverticulosis. Reading Location: [facility] Physical Exam Const alert and no apparent distress HEENT head/scalp atraumatic and moist oral mucous membranes Resp normal respiratory effort, no retractions, no use of accessory muscles and clear to auscultation bilaterally Cardio regular rate, regular rhythm, S1 normal heart sound and S2 normal heart sound GI normal to inspection, nondistended, normoactive bowel sounds, soft to palpation, non-tender and non-distended Extremity normal to inspection and full ROM Neuro Sensorium / Orientation: awake and alert Assessment & Plan Assessment/Plan (1) Intractable abdominal pain: PLAN: RUQ. Normal LFTs, lipase. CT A/P: mildly distended stomach. Probable small cystic duct remnant with gallstone. Does not appear to be inflamed. GI and gen surgery consultation. US ordered. He said he has been evaluated up in [place] with negative work up. I tried to access [facility], but link cannot be accessed at this time. PLAN: Plan Chronic conditions: * obesity class II: complicates care and recovery. * HTN: stable. continue amlodipine, * DM2: basal insulin and SSI. VTE prophylaxis: SCDs. Charges/Coding Visit Charges Inpatient E&M: 37583 Subs Hosp L2
[2024-10-28 09:43] VITALS: BP 131/72; PULSE 74; RESP 17; TEMP 36.6; O2SAT 96
[2024-10-28 11:47] LABS: Bedside Glucose 107 mg/dL (74-106)
--- NOTE | 2024-10-28 13:10 | EX.PCM.CON.S ---
Assessment & Plan Assessment/Plan (1) Right upper quadrant abdominal pain: PLAN: Plan The patient is a 68-year-old male who presented last night to the emergency room with right upper quadrant pain. Patient has gallbladder removed about 3 years ago while living in [place]. It sounds as though this surgery was fairly unremarkable. When questioned about the possibility of a subtotal cholecystectomy being performed, he was not aware of this being the case and believes that this was a routine gallbladder removal. However, I do not have the operative note to review at this point. He does state that his right upper quadrant pain although periodic is reminiscent of his gallbladder pain previously. No inflammation per se was seen on CT scan however there was made mention of a possible remnant gallbladder with a stone. Ultrasound was recommended however this has not yet been performed due to the weekend. Hopefully this will be performed early tomorrow. Agree with GI consultation as well. Would continue antibiotics. I feel that it is okay to give a trial of clear liquid diet. Order was placed to advance diet to clears. Again we will attempt to obtain previous operative notes from cholecystectomy. If a subtotal cholecystectomy was performed and if we feel that completion cholecystectomy is warranted, I would likely recommend that this be best performed at a tertiary center by [facility] surgery as this could certainly be a very complicated surgery given scar tissue from previous operation. Patient is understanding of this and agrees to this plan. HPI Consult Data Date of Consult: 10/28/24 HPI Narrative Reason for Consultation: Right upper quadrant pain HPI Narrative: DAVID CARDONA, is a 68 M who presented to the emergency department at [facility] last evening with complaints of right upper quadrant pain. He states that this pain started around 10 AM that morning after he drank coffee with cream. Shortly thereafter he developed discomfort in the right upper quadrant. He states that he has had this type of pain periodically for several years. He states he has had about 4 or 5 ER visits for this pain. He is undergone several workups with GI in the past, and no obvious source was identified for his pain. He states that this occurs within a few minutes of eating or drinking. His symptoms also include dry heaves. It is important to note that he underwent a cholecystectomy about 3 years ago while he was residing in [place]. When questioned about the details of the surgery, he makes no mention of a subtotal cholecystectomy or any issues from that surgery. It sounds as though this was a fairly routine elective cholecystectomy without severe inflammation. He did state that his surgeon commented that he had thousands of stones. It sounds as though he is had numerous EGDs and colonoscopies. I was able to review a lot of his workup previously in [place] as well as in [place]. I was not able to review the operative note but I will see if the patient has any additional documents at home. This morning he denies any abdominal pain whatsoever. White count seems to be down. CT scan indicated the possibility of a small gallbladder remnant versus dilated cystic duct with a small stone within it. No obvious inflammation was seen on CT scan. Ultrasound was recommended however this was not able to be performed last night or over the weekend. [facility] Medical History Chest pain Dilated aortic root Diastolic dysfunction Morbidly obese Venous insufficiency Abnormal EKG Atherosclerosis of [place] coronary artery of [place] heart without angina pectoris Left ventricular hypertrophy Hyperlipidemia GERD (gastroesophageal reflux disease) Osteopenia Anemia Arthritis CKD stage 3 secondary to diabetes Hypertension Type 2 diabetes mellitus Home Medications ?Medication ?Instructions ?Recorded ?Last Taken ?Type aspirin 81 mg capsule 81 mg PO DAILY 04/03/23 10/27/24 History calcium 600 mg (as 1 tab PO BID 04/03/23 10/26/24 History carbonate)-vitamin D3 5 mcg (200 unit) tablet (Calcium 600 + D(3)) folic acid 800 mcg tablet 800 mcg PO DAILY 04/03/23 10/27/24 History mecobalamin (vitamin B12) 1,000 1,000 mcg PO .every other day 04/03/23 Unknown History mcg chewable tablet insulin aspart U-100 100 unit/mL See Protocol subcut [facility] 09/05/23 Unknown History (3 mL) subcutaneous pen (Novolog FlexPen U-100 Insulin aspart) ferrous sulfate 325 mg (65 mg 325 mg PO DAILY #90 tabs 01/20/24 10/27/24 Rx iron) tablet,delayed release blood sugar diagnostic (OneTouch #100 ea 02/07/24 Unknown Rx Ultra Test strips) olmesartan 5 mg tablet 5 mg PO DAILY #90 tabs 04/24/24 10/27/24 Rx omeprazole 40 mg capsule,delayed 40 mg PO DAILY #90 caps 05/18/24 10/27/24 Rx release insulin degludec 200 unit/mL (3 40 unit (0.2 mL) subcut QHS #9 mL 06/18/24 Unknown Rx mL) subcutaneous pen (Tresiba FlexTouch U-200 insulin) pen needle, diabetic 31 gauge x #300 ea 08/10/24 Unknown Rx 12/28 (BD Ultra-Fine Short Pen Needle) metoprolol tartrate 50 mg tablet 50 mg PO BID 90 days #180 tabs 08/16/24 10/27/24 Rx atorvastatin 20 mg tablet 20 mg PO QHS #90 tabs 10/18/24 10/26/24 Rx furosemide 40 mg tablet 40 mg PO DAILY #90 tabs 10/18/24 10/27/24 Rx allopurinol 100 mg tablet 100 mg PO BID #180 tabs 10/19/24 10/27/24 Rx amlodipine 10 mg tablet 10 mg PO DAILY #90 tabs 10/22/24 10/27/24 Rx Allergy/AdvReac Type Severity Reaction Status Date / Time latex Allergy Unknown Rash Verified 10/27/24 17:27 bacitracin (From Neosporin Allergy Rash Verified 10/27/24 17:27 ([id number])) neomycin (From Neosporin Allergy Rash Verified 10/27/24 17:27 ([id number])) nickel Allergy PT UNSURE Verified 10/27/24 17:27 OF REACTION polymyxin B (From Neosporin Allergy Rash Verified 10/27/24 17:27 ([id number])) Family History Grandmother Diabetes Father Heart disease Myocardial infarction 59 Cancer prostate and throat Hypertension Hyperlipidemia Mother Cancer lung Brother Aortic aneurysm Cancer prostate Surgical History Cataract extraction status History of foot surgery History of carpal tunnel release Amputation toe Hx of hernia repair H/O lithotripsy S/P cervical spinal fusion Hx of neck surgery Hx of cholecystectomy Social History household members: spouse current occupational 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 He is in no acute distress. Head is normocephalic and atraumatic. Pupils are equal round and reactive to light. Abdomen is soft, nontender nondistended. Specifically no tenderness whatsoever in the epigastric or right upper quadrant regions. Lab / Micro Data 10/28/24 05:06 10/28/24 05:06 Labs: Laboratory Results - last 24 hr 10/27/24 17:01: WBC 13.4 H, RBC 3.95 L, Hgb 12.6 L, Hct 37.8 L, MCV 95.7 H, MCH 31.9, MCHC 33.3, RDW Std Deviation 46.8 H, RDW Coeff of Germain 13.2, Plt Count 214, MPV 10.9, Immature Gran % (Auto) 0.500, Neut % (Auto) 79.9 H, Lymph % (Auto) 15.0 L, Mcclain % (Auto) 3.0, Eos % (Auto) 0.9, Baso % (Auto) 0.7, Absolute Neuts (auto) 10.7 H, Absolute Lymphs (auto) 2.00, Nucleated RBC % 0, Sodium 137, Potassium 4.7, Chloride 103, Carbon Dioxide 19.6 L, Anion Gap 15, BUN 36 H, Creatinine 1.70 H, Estim Creat Clear Calc 50.76, Est GFR (MDRD) Non-Af 43 L, BUN/Creatinine Ratio 21.4 H, Glucose 131 H, Calcium 9.6, Magnesium 2.0, Total Bilirubin 0.44, AST 27, ALT 12, Alkaline Phosphatase 129, Total Protein 8.1, Albumin 4.4, Globulin 3.7, Albumin/Globulin Ratio 1.2, Lipase 14, Vitamin B12 2067 H 10/27/24 18:30: Urine Color Straw, Urine Clarity Clear, Urine pH 6.0, Ur Specific Reynolds 1.010, Urine Protein 30 H, Urine Glucose (UA) Normal, Urine Ketones 5 H, Urine Occult Blood Negative, Urine Nitrite Negative, Urine Bilirubin Negative, Urine Urobilinogen Normal, Ur Leukocyte Esterase Negative, Urine RBC 0 SEEN, Urine WBC 0 SEEN, Ur Squamous Epith Cells 0 SEEN, Urine Bacteria RARE, Hyaline Casts 0-5 SEEN, Urine Mucus 0 SEEN 10/27/24 22:35: Troponin T High Sens 20, PSA Screen 3.00, TSH 1.020 10/27/24 23:23: POC Glucose 183 H 10/28/24 00:49: Troponin T Hi Sens 2 Hr 21, Serum Folate 34.30 10/28/24 05:06: WBC 12.6 H, RBC 3.67 L, Hgb 11.7 L, Hct 34.6 L, MCV 94.3 H, MCH 31.9, MCHC 33.8, RDW Std Deviation 45.8 H, RDW Coeff of Germain 13.2, Plt Count 191, MPV 10.7, Immature Gran % (Auto) 0.200, Neut % (Auto) 82.1 H, Lymph % (Auto) 11.5 L, Mcclain % (Auto) 5.9, Eos % (Auto) 0.1, Baso % (Auto) 0.2, Absolute Neuts (auto) 10.4 H, Absolute Lymphs (auto) 1.45, Nucleated RBC % 0, PT 14.3, INR 1.1, Sodium 137, Potassium 4.6, Chloride 104, Carbon Dioxide 19.4 L, Anion Gap 13, BUN 33 H, Creatinine 1.53 H, Estim Creat Clear Calc 55.96, Est GFR (MDRD) Non-Af 49 L, BUN/Creatinine Ratio 21.6 H, Glucose 131 H, Hemoglobin A1c 6.3, Calcium 8.9, Phosphorus 3.9, Total Bilirubin 0.58, AST 18, ALT 11, Alkaline Phosphatase 113, Total Protein 6.9, Albumin 3.8, Globulin 3.1, Albumin/Globulin Ratio 1.2, Triglycerides 62, Cholesterol 69, LDL Cholesterol, Calc 24, VLDL Cholesterol 12, HDL Cholesterol 33 L, Cholesterol/HDL Ratio 2.09 10/28/24 06:22: POC Glucose 127 H 10/28/24 11:26: POC Glucose 107 H Imaging Radiology Impression Abdomen/Pelvis CT 10/27/24 16:48 IMPRESSION: Mildly distended stomach. Similar appearance to prior examination with surgical clips seen in the gallbladder fossa. Probable small cystic duct remnant with gallstone again detected. This does not appear to be inflamed. Given the patient's history of right upper quadrant pain, ultrasound may be of diagnostic benefit Enlarged prostate gland. Correlation with PSA advised. No bowel obstruction. Mild constipation and diverticulosis. Reading Location: [id number] Charges/Coding Visit Charges Inpatient E&M: 04950 Init Hosp L3
[2024-10-28 14:52] VITALS: BP 130/66; PULSE 67; RESP 18; TEMP 36.8; O2SAT 99
[2024-10-28] MEDS: Ketorolac 15 MG/ML Vial IV (17:20)
[2024-10-28] MEDS: 0.9% Saline Lock 10 ML Syringe IV ×2 (17:21→20:58)
[2024-10-28 18:35] LABS: Bedside Glucose 118 mg/dL (74-106)
[2024-10-28] MEDS: Pantoprazole Sodium 40 MG in 0.9% Normal Saline (100mL MB+) 100 ML 330 MG IV (20:58)
[2024-10-28 21:08] VITALS: BP 147/72; PULSE 63; RESP 16; TEMP 36.4; O2SAT 100
[2024-10-28 21:23] LABS: Bedside Glucose 97 mg/dL (74-106)
[2024-10-29 06:00] VITALS: BP 135/79; PULSE 76; RESP 16; TEMP 37.2; O2SAT 94
--- NOTE | 2024-10-29 06:00 | US_ITS ---
PROCEDURE: ABDOMEN LIMITED REASON FOR EXAM: SMALL CYSTIC DUCT REMNANT with gallstone. Right upper quadrant pain COMPARISON: CT abdomen/pelvis 10/27/2024. FINDINGS: The pancreas is not evaluated due to overlying bowel gas. No abdominal ascites. The liver is mildly enlarged measuring up to 21.8 cm. The liver demonstrates coarse echotexture, which may be due to fatty metamorphosis. No discrete liver lesion. There is limited liver penetration and limited evaluation of the liver parenchyma. The right kidney is 12.2 cm in length, grossly unremarkable. The gallbladder is not demonstrated, absent by history. The common duct is measured at 5 mm. The possible cystic duct remnant, containing a small stone on the comparison CT of 10/27/2024, is not demonstrated on this examination. US/Abdomen Limited IMPRESSION: Prior cholecystectomy. The common duct measures 5 mm. No evidence of choledocholithiasis on this stud y. The possible cystic duct remnant, which may contain a small gallstone on the CT of 10/27/2024, is not demonstrated on this ultrasound examination. Nondiagnostic evaluation of the pancreas. Unremarkable right kidney. Coarse liver echotexture, which may be due to fatty metamorphosis. Limited pierre luation of the liver parenchyma on this study. Reading Location: [facility]
[2024-10-29 06:13] LABS: Bedside Glucose 114 mg/dL (74-106)
[2024-10-29 08:09] VITALS: O2SAT 95
[2024-10-29 10:46] VITALS: BP 148/78; PULSE 70; RESP 18; TEMP 36.6; O2SAT 98
--- NOTE | 2024-10-29 10:47 | CASEMGMT ---
Met with patient to complete [place] form. [place] form explained to patient who voiced understanding and signed form. Original form placed in pt?s chart and copy provided to patient. Candi Thakkar, Discharge Planning Asst
[2024-10-29 11:32] LABS: Bedside Glucose 101 mg/dL (74-106)
--- NOTE | 2024-10-29 11:40 | PCM.PN.SRG ---
Subjective Subjective Patient evaluated resting comfortably in bed. He notes right upper quadrant pain has resolved. Discussed with the patient the RUQ u/s did not show any gallstone within the cystic duct area. He states he has tolerated clear liquids. He notes feeling back to his normal self. Objective Data Objective Data Vital Signs: Vital Signs Temp Pulse Resp BP Pulse Ox O2 Del Method 97.9 F 70 18 148/78 H 98 Room Air 10/29/24 10:46 10/29/24 10:46 10/29/24 10:46 10/29/24 10:46 10/29/24 10:46 10/29/24 10:46 Oxygen Delivery Method Room Air Weight: 253 lb 4.978 oz Body Mass Index (BMI) 39.6 Intake & Output: Intake and Output for Last 24 Hours 10/27/24 10/28/24 10/29/24 23:59 23:59 23:59 Intake Total 110 / 110 1110 / 1110 Balance 110 / 110 1110 / 1110 Lab / Micro Data 10/28/24 05:06 10/28/24 05:06 Labs: Laboratory Results - last 24 hr 10/28/24 11:26: POC Glucose 107 H 10/28/24 18:16: POC Glucose 118 H 10/28/24 21:00: POC Glucose 97 10/29/24 05:45: POC Glucose 114 H 10/29/24 11:08: POC Glucose 101 Radiography Diagnostic Testing: Radiology Impression Abdomen Ultrasound 10/29/24 06:00 IMPRESSION: Prior cholecystectomy. The common duct measures 5 mm. No evidence of choledocholithiasis on this study. The possible cystic duct remnant, which may contain a small gallstone on the CT of 10/27/2024, is not demonstrated on this ultrasound examination. Nondiagnostic evaluation of the pancreas. Unremarkable right kidney. Coarse liver echotexture, which may be due to fatty metamorphosis. Limited evaluation of the liver parenchyma on this study. Reading Location: [facility] Physical Exam GI GI Narrative: Abdomen- soft, non-tender in the RUQ. Assessment & Plan Assessment/Plan (1) Intractable abdominal pain: PLAN: I am following this patient in conjunction with Dr. Foster. He will independently evaluate this patient. Labs reviewed Patient tolerating clear liquids without any pain No surgical intervention being recommended at this time No gallstone noted within the cystic duct GI consulted Increase to transitional diet If tolerates diet without pain, patient may be discharged from surgical standpoint and pending GI consultation We will continue to follow Charges/Coding Visit Charges Inpatient E&M: 88404 Subs Hosp L2
[2024-10-29 13:20] LABS: Phosphorus 2.5 mg/dL (2.7-4.5)
[2024-10-29 14:28] VITALS: BP 145/75; PULSE 87; RESP 16; TEMP 36.8; O2SAT 100
--- NOTE | 2024-10-29 15:29 | PN.HOSP_ITS ---
Reason for Visit Reason for Visit: Diagnoses Unspecified abdominal pain (10/27/24) Subjective Subjective Patient was seen and examined today, he had an ultrasound performed today which did not show a gallbladder, it also did not show a dilated common bile duct or evidence of stone. I talked with gastroenterology today and they felt that the patient did have a stone in the cystic duct remnant. They were unsure whether they could actually retrieve the stone and they were going to see the patient this afternoon. General surgery did not feel the patient had a surgical abdomen. Patient does not presently complain of any abdominal discomfort. Objective Data Objective Data Vital Signs: Vital Signs Temp Pulse Resp BP Pulse Ox O2 Del Method 98.3 F 87 16 145/75 H 100 Room Air 10/29/24 14:28 10/29/24 14:28 10/29/24 14:28 10/29/24 14:28 10/29/24 14:28 10/29/24 14:28 Oxygen Delivery Method Room Air Weight: 114.9 kg Body Mass Index (BMI) 39.6 Intake & Output: Intake and Output for Last 24 Hours 10/27/24 10/28/24 10/29/24 23:59 23:59 23:59 Intake Total 110 / 110 1110 / 1110 Balance 110 / 110 1110 / 1110 Lab / Micro Data 10/28/24 05:06 10/28/24 05:06 Labs: Laboratory Results - last 24 hr 10/28/24 18:16: POC Glucose 118 H 10/28/24 21:00: POC Glucose 97 10/29/24 05:37: Phosphorus 2.5 L 10/29/24 05:45: POC Glucose 114 H 10/29/24 11:08: POC Glucose 101 Radiography Diagnostic Testing: Radiology Impression Abdomen Ultrasound 10/29/24 06:00 IMPRESSION: Prior cholecystectomy. The common duct measures 5 mm. No evidence of choledocholithiasis on this study. The possible cystic duct remnant, which may contain a small gallstone on the CT of 10/27/2024, is not demonstrated on this ultrasound examination. Nondiagnostic evaluation of the pancreas. Unremarkable right kidney. Coarse liver echotexture, which may be due to fatty metamorphosis. Limited evaluation of the liver parenchyma on this study. Reading Location: [facility] Physical Exam Const alert, oriented x3, no apparent distress and healthy appearing General Appearance: cooperative, well kempt and well developed Orientation / Consciousness: awake, oriented to person, oriented to place and oriented to time HEENT normocephalic, head/scalp atraumatic and moist oral mucous membranes Eyes PERRL, EOMs intact bilaterally and conjunctivae normal Neck supple, no JVD, thyroid normal and no carotid bruits General: trachea midline Resp normal respiratory effort, no retractions, no use of accessory muscles and clear to auscultation bilaterally Auscultation: Negative for rales, rhonchi or wheezes Cardio regular rate, regular rhythm, S1 normal heart sound, S2 normal heart sound, no murmurs, no rub and no gallops GI normal to inspection, nondistended, normoactive bowel sounds, soft to palpation, non-tender and non-distended Extremity no clubbing, cyanosis or edema Skin no rashes or lesions noted General Skin Exam: no breakdown Neuro oriented x3, CN's II-XII intact bilaterally, moves all extremities, no focal motor deficits and no sensory deficits noted Sensorium / Orientation: awake and alert Speech: speech normal Psych affect normal Assessment & Plan Assessment/Plan (1) Intractable abdominal pain: PLAN: Plan 1. Right upper quadrant abdominal pain-resolved at this time, gastroenterology will talk to the patient and there is a possibility he will need an ERCP. #2 type 2 diabetes-patient is on sliding scale insulin per fingerstick blood sugars #3 essential hypertension-patient will remain on his present blood pressure medication Clinical time spent by my medical issues, reviewing all of his data, and collaborating with patient's care team: 35 minutes Charges/Coding Visit Charges Inpatient E&M: 63158 Subs Hosp L2
[2024-10-29 16:31] LABS: Bedside Glucose 152 mg/dL (74-106)
[2024-10-29] MEDS: Insulin Lispro 100 UNIT/ML INSULN.PEN SC ×2 (16:46→22:25)
--- NOTE | 2024-10-29 20:02 | CON.PCM.GI_ITS ---
HPI Consult Data Date of Consult: 10/29/24 HPI Narrative Reason for Consultation: Abdominal pain and abnormal imaging HPI Narrative: DAVID CARDONA, is a 68 M who presents with right upper quadrant pain. 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 previously noted by gastroenterology, DM-2; of unknown control on insulin degludec 40 units SQ at bedtime and insulin aspart AC/HS, diabetic neuropathy, CAD; on BASA daily, history of LVH, history of dilated aortic root, history of diastolic dysfunction, CKD; stage IIIb, history of iron deficiency anemia; on ferrous sulfate, history of venous insufficiency, history of hernia; s/p repair, history of lithotripsy, history of toe amputation due to infection, history of cataracts; s/p extraction, GERD; on omeprazole, history of gout; on allopurinol, osteopenia and OA; primarily of the cervical spine; s/p cervical fusion who presents to [facility] ER complaining of Right upper quadrant pain, nausea and dry heaving. Mr. Cardona reports his symptoms began approximately 10:30 AM earlier today with the abrupt-onset of severe Right upper quadrant pain at Mike had coffee with creamer. He describes the pain as dull but severe, as if someone hit him with a bat, but there is also a sharp and stabbing component to it as well with nothing seeming to make the pain better or worse. He also admits to severe nausea with frequent dry heaving but nothing will come up. He states he has not had a bowel movement in approximately 1-1/2 days. He states he had a similar episode approximately 1-1/2 months ago and is still being worked up for it with suspicion it may be related to his chronic small cystic duct remnant with gallstone - but no intervention has been undertaken since that time, likely because his symptoms resolved within 1 day. As part of his workup he also underwent a recent cardiac stress test which was reportedly negative. He denies associated fever, chills, changes in vision, runny nose, sore throat, chest pain, palpitations, heart racing, shortness of breath, rash, dysuria or headache. In the ER he was noted to have CT evidence of mildly distended stomach with similar prior appearance to previous CT examination with surgical clips seen in the gallbladder fossa and probable small cystic duct remnant with gallstone again detected that does not appear to be inflamed with ultrasound recommended in addition to enlarged prostate with correlation with PSA advised and no bowel obstruction but with mild constipation and diverticulosis. He was also noted to have leukocytosis of 13.4K present on admission with otherwise unremarkable labs and vital signs. The ER physician then contacted the general surgeon on-call, Dr. Foster, who recommended admission to medicine as he does not recommend surgical intervention at this time. [facility] Medical History Chest pain Dilated aortic root Diastolic dysfunction Morbidly obese Venous insufficiency Abnormal EKG Atherosclerosis of platinum coronary artery of platinum heart without angina pectoris Left ventricular hypertrophy Hyperlipidemia GERD (gastroesophageal reflux disease) Osteopenia Anemia Arthritis CKD stage 3 secondary to diabetes Hypertension Type 2 diabetes mellitus Home Medications ?Medication ?Instructions ?Recorded ?Last Taken ?Type aspirin 81 mg capsule 81 mg PO DAILY 04/03/2310/13 History calcium 600 mg (as 1 tab PO BID 04/03/23 History carbonate)-vitamin D3 5 mcg (200 unit) tablet (Calcium 600 + D(3)) folic acid 800 mcg tablet 800 mcg PO DAILY 04/03/23 History mecobalamin (vitamin B12) 1,000 1,000 mcg PO .every ot her day 04/03/23 Unknown History mcg chewable tablet insulin aspart U-100 100 unit/mL See Protocol subcut A [facility] 09/05/23 Unknown History (3 mL) subcutaneous pen (Novolog FlexPen U-100 Insulin aspart) ferrous sulfate 325 mg (65 mg 325 mg PO DAILY #90 tabs 01/20/24 10/27/24 Rx iron) tablet,delayed release blood sugar diagnostic (OneTouch #100 ea 02/07/24 Unkn own Rx Ultra Test strips) olmesartan 5 mg tablet 5 mg PO DAILY #90 tabs 04/2410/27/24 Rx omeprazole 40 mg capsule,delayed 40 mg PO DAILY #90 ca ps 05/18/24 10/27/24 Rx release pen needle, diabetic 31 gauge x #300 ea 08/10/24 Unkno wn Rx 12/28 (BD Ultra-Fine Short Pen Needle) metoprolol tartrate 50 mg tablet 50 mg PO BID 90 days #180 tabs 08/16/24 10/27/24 Rx atorvastatin 20 mg tablet 20 mg PO QHS #90 tabs 10/26/24 Rx furosemide 40 mg tablet 40 mg PO DAILY #90 tabs 02/0610/27/24 Rx allopurinol 100 mg tablet 100 mg PO BID #180 tabs 03/0810/27/24 Rx amlodipine 10 mg tablet 10 mg PO DAILY #90 tabs 10/1310/27/24 Rx insulin degludec 200 unit/mL (3 40 unit (0.2 mL) subcu t QHS #9 mL 10/29/24 Unknown Rx mL) subcutaneous pen (Tresiba FlexTouch U-200 insulin) Allergy/AdvReac Type Severity Reaction Status Date / Time latex Allergy Unknown Rash Verified 10/27/24 17:27 bacitracin (From Neosporin Allergy Rash Verified 10/27/24 17:27 ([id number])) neomycin (From Neosporin Allergy Rash Verified 10/27/24 17:27 ([id number])) nickel Allergy PT UNSURE Verified 10/27/24 17:27 OF REACTION polymyxin B (From Neosporin Allergy Rash Verified 10/27/24 17:27 ([id number])) Family History Grandmother Diabetes Father Heart disease Myocardial infarction 59 Cancer prostate and throat Hypertension Hyperlipidemia Mother Cancer lung Brother Aortic aneurysm Cancer prostate Surgical History Cataract extraction status History of foot surgery History of carpal tunnel release Amputation toe Hx of hernia repair H/O lithotripsy S/P cervical spinal fusion Hx of neck surgery Hx of cholecystectomy Social History household members: spouse current occupational 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 The common duct measures 5 mm. No evidence of choledocholithiasis on this study. The possible cystic duct remnant, which may contain a small gallstone on the CT of 10/27/2024, is not demonstrated on this ultrasound examination. Nondiagnostic evaluation of the pancreas. Unremarkable right kidney. Coarse liver echotexture, which may be due to fatty metamorphosis. Limited evaluation of the liver parenchyma on this study. Reading Location: [facility]
--- NOTE | 2024-10-29 20:02 | EX.PCM.CON.G ---
HPI Consult Data Date of Consult: 10/29/24 HPI Narrative Reason for Consultation: Abdominal pain and abnormal imaging HPI Narrative: DAVID CARDONA, is a 68 M who presents with right upper quadrant pain. 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 He is originalhe is originally from [place] and moved up here a few years ago. 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 Since getting his gallbladder out, he's been having continuing right of quadrant pain associated with nausea and dry heaving. This is why he presented to the emergency room. He states he had a similar episode approximately 1-1/2 months ago and is still being worked up for it with suspicion it may be related to his chronic small cystic duct remnant with gallstone - but no intervention has been undertaken since that time, likely because his symptoms resolved within 1 day. As part of his workup he also underwent a recent cardiac stress test which was reportedly negative. He denies associated fever, chills, changes in vision, runny nose, sore throat, chest pain, palpitations, heart racing, shortness of breath, rash, dysuria or headache. In the ER he was noted to have CT evidence of mildly distended stomach with similar prior appearance to previous CT examination with surgical clips seen in the gallbladder fossa and probable small cystic duct remnant with gallstone again detected that does not appear to be inflamed with ultrasound recommended in addition to enlarged prostate with correlation with PSA advised and no bowel obstruction but with mild constipation and diverticulosis. He was also noted to have leukocytosis of 13.4K present on admission with otherwise unremarkable labs and vital signs. The ER physician then contacted the general surgeon on-call, Dr. Foster, who recommended admission to medicine as he does not recommend surgical intervention at this time. [facility] Medical History Chest pain Dilated aortic root Diastolic dysfunction Morbidly obese Venous insufficiency Abnormal EKG Atherosclerosis of ione coronary artery of ione heart without angina pectoris Left ventricular hypertrophy Hyperlipidemia GERD (gastroesophageal reflux disease) Osteopenia Anemia Arthritis CKD stage 3 secondary to diabetes Hypertension Type 2 diabetes mellitus Home Medications ?Medication ?Instructions ?Recorded ?Last Taken ?Type aspirin 81 mg capsule 81 mg PO DAILY 04/03/23 10/27/24 History calcium 600 mg (as 1 tab PO BID 04/03/23 10/26/24 History carbonate)-vitamin D3 5 mcg (200 unit) tablet (Calcium 600 + D(3)) folic acid 800 mcg tablet 800 mcg PO DAILY 04/03/23 10/27/24 History mecobalamin (vitamin B12) 1,000 1,000 mcg PO .every other day 04/03/23 Unknown History mcg chewable tablet insulin aspart U-100 100 unit/mL See Protocol subcut [facility] 09/05/23 Unknown History (3 mL) subcutaneous pen (Novolog FlexPen U-100 Insulin aspart) ferrous sulfate 325 mg (65 mg 325 mg PO DAILY #90 tabs 01/20/24 10/27/24 Rx iron) tablet,delayed release blood sugar diagnostic (OneTouch #100 ea 02/07/24 Unknown Rx Ultra Test strips) olmesartan 5 mg tablet 5 mg PO DAILY #90 tabs 04/24/24 10/27/24 Rx omeprazole 40 mg capsule,delayed 40 mg PO DAILY #90 caps 05/18/24 10/27/24 Rx release pen needle, diabetic 31 gauge x #300 ea 08/10/24 Unknown Rx 5/16 (BD Ultra-Fine Short Pen Needle) metoprolol tartrate 50 mg tablet 50 mg PO BID 90 days #180 tabs 08/16/24 10/27/24 Rx atorvastatin 20 mg tablet 20 mg PO QHS #90 tabs 10/18/24 10/26/24 Rx furosemide 40 mg tablet 40 mg PO DAILY #90 tabs 10/18/24 10/27/24 Rx allopurinol 100 mg tablet 100 mg PO BID #180 tabs 10/19/24 10/27/24 Rx amlodipine 10 mg tablet 10 mg PO DAILY #90 tabs 10/22/24 10/27/24 Rx insulin degludec 200 unit/mL (3 40 unit (0.2 mL) subcut QHS #9 mL 10/29/24 Unknown Rx mL) subcutaneous pen (Tresiba FlexTouch U-200 insulin) Allergy/AdvReac Type Severity Reaction Status Date / Time latex Allergy Unknown Rash Verified 10/27/24 17:27 bacitracin (From Neosporin Allergy Rash Verified 10/27/24 17:27 ([id number])) neomycin (From Neosporin Allergy Rash Verified 10/27/24 17:27 ([id number])) nickel Allergy PT UNSURE Verified 10/27/24 17:27 OF REACTION polymyxin B (From Neosporin Allergy Rash Verified 10/27/24 17:27 ([id number])) Family History Grandmother Diabetes Father Heart disease Myocardial infarction 59 Cancer prostate and throat Hypertension Hyperlipidemia Mother Cancer lung Brother Aortic aneurysm Cancer prostate Surgical History Cataract extraction status History of foot surgery History of carpal tunnel release Amputation toe Hx of hernia repair H/O lithotripsy S/P cervical spinal fusion Hx of neck surgery Hx of cholecystectomy Social History household members: spouse current occupational 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 Eyes: Patient denies changes in vision or discharge from eyes. ENT: Patient denies runny nose, sore throat or ear pain. Resp: Patient denies shortness of breath or cough. CV: Patient denies chest pain, palpitations, heart racing or lower extremity edema. GI: Patient admits to severe right upper quadrant abdominal pain with nausea and dry heaves as per HPI. : Patient denies dysuria, hematuria or urinary frequency. MSK: Patient denies arthralgias or myalgias. Skin: Patient denies rash, abscess, wounds or jaundice. Psych: Patient denies symptoms of uncontrolled depression or anxiety. Neuro: Patient denies headache, paresthesias or focal neurologic deficits. Allergy: Patient denies lip swelling, tongue swelling or urticaria. Hematology: Patient denies easy bleeding or easy bruisability. Endocrinology: Patient denies polyuria, polydipsia or polyphagia. 14 point ROS otherwise negative except for positives noted above in HPI. Physical Exam Const alert, oriented x3, no apparent distress and healthy appearing General Appearance: cooperative, well kempt and well developed Orientation / Consciousness: awake, oriented to person, oriented to place and oriented to time HEENT normocephalic, head/scalp atraumatic and moist oral mucous membranes Eyes PERRL, EOMs intact bilaterally and conjunctivae normal Neck supple, no JVD, thyroid normal and no carotid bruits General: trachea midline Resp normal respiratory effort, no retractions, no use of accessory muscles and clear to auscultation bilaterally Auscultation: Negative for rales, rhonchi or wheezes Cardio regular rate, regular rhythm, S1 normal heart sound, S2 normal heart sound, no murmurs, no rub and no gallops GI normal to inspection, nondistended, normoactive bowel sounds, soft to palpation, non-tender and non-distended Extremity no clubbing, cyanosis or edema Skin no rashes or lesions noted General Skin Exam: no breakdown Neuro oriented x3, CN's II-XII intact bilaterally, moves all extremities, no focal motor deficits and no sensory deficits noted Sensorium / Orientation: awake and alert Speech: speech normal Psych affect normal Lab / Micro Data 10/28/24 05:06 10/28/24 05:06 Labs: Laboratory Results - last 24 hr 10/28/24 21:00: POC Glucose 97 10/29/24 05:37: Phosphorus 2.5 L 10/29/24 05:45: POC Glucose 114 H 10/29/24 11:08: POC Glucose 101 10/29/24 16:14: POC Glucose 152 H Imaging Radiology Impression Abdomen Ultrasound 10/29/24 06:00 IMPRESSION: Prior cholecystectomy. The common duct measures 5 mm. No evidence of choledocholithiasis on this study. The possible cystic duct remnant, which may contain a small gallstone on the CT of 10/27/2024, is not demonstrated on this ultrasound examination. Nondiagnostic evaluation of the pancreas. Unremarkable right kidney. Coarse liver echotexture, which may be due to fatty metamorphosis. Limited evaluation of the liver parenchyma on this study. [facility] Assessment & Plan Assessment/Plan (1) Calculus of cystic duct: (2) Right upper quadrant abdominal pain: (3) Nausea: (4) Dry heaves: (5) Constipation: QUALIFIERS: Constipation type: unspecified constipation type Qualified Code(s): K59.00 - Constipation, unspecified (6) Leukocytosis: QUALIFIERS: Leukocytosis type: unspecified Qualified Code(s): D72.829 - Elevated white blood cell count, unspecified (7) Fatty liver: (8) Metabolic dysfunction-associated steatotic liver disease (MASLD): (9) Morbid obesity with BMI of 40.0-44.9, adult: PLAN: Plan This is a pleasant 68-year-old gentleman with poorly controlled diabetes mellitus and his device to my latest status post right big toe amputation who comes in with worsening ruq pain, nausea, and bloating that has been getting progressively worse. CT evidence of mildly distended stomach with similar prior appearance to previous CT examination with surgical clips seen in the gallbladder fossa and probable small cystic duct remnant with gallstone. I explained to him a great detail that there's a possibility that we can get to the stone with ERCP. However, it depends on where cystic duct takeoff is and how torturous cystic duct is. I told him we will attempt extraction via ERCP however, if it appears that the cystic duct anatomy is is not amenable to ERCP, then he will need to undergo surgical procedure. Intractable RUQ pain with Nausea, Dry heaves and Constipation also, diagnosis for this would be gastroparesis, Peptic ulcer disease. Charges/Coding Visit Charges Inpatient E&M: 45710 Init Hosp L3
[2024-10-29] MEDS: Pantoprazole Sodium 40 MG in 0.9% Normal Saline (100mL MB+) 100 ML 330 MG IV (22:19)
[2024-10-29] MEDS: 0.9% Saline Lock 10 ML Syringe IV (22:21)
[2024-10-29 22:29] VITALS: BP 134/66; PULSE 78; RESP 16; TEMP 37; O2SAT 96
[2024-10-30] VITALS (14 sets, daily range): BP systolic 123–150; BP diastolic 55–72; PULSE 56–97; RESP 14–20; TEMP 36.1–37; O2SAT 94–99; BMI 39.6
[2024-10-30] MEDS: Insulin Glargine-YFGN 100 UNIT/ML Pen 10 UNIT SC ×2 (00:06→22:44)
[2024-10-30 00:40] LABS: Bedside Glucose 164 mg/dL (74-106)
[2024-10-30 07:03] LABS: Bedside Glucose 135 mg/dL (74-106)
--- NOTE | 2024-10-30 08:49 | PN.SURG_ITS ---
Subjective Subjective Patient evaluated resting comfortably in bed. He notes his pain is a 2 out of 10. He tolerated a transitional diet yesterday. He notes feeling slight bloated from the diet yesterday. He denies nausea, vomiting. Objective Data Objective Data Vital Signs: Vital Signs Temp Pulse Resp BP Pulse Ox O2 Del Method 97.6 F L 71 18 143/71 H 97 Nasal Cannula 10/30/24 08:00 10/30/24 08:00 10/30/24 08:00 10/30/24 08:00 10/30/24 08:00 10/30/24 08:00 Oxygen Delivery Method Nasal Cannula Weight: 253 lb 4.978 oz Body Mass Index (BMI) 39.6 Intake & Output: Intake and Output for Last 24 Hours 10/28/24 10/29/24 10/30/24 23:59 23:59 23:59 Intake Total 1110 / 1110 960 / 960 0 / 0 Balance 1110 / 1110 960 / 960 0 / 0 Lab / Micro Data 10/28/24 05:06 10/28/24 05:06 Labs: Laboratory Results - last 24 hr 10/29/24 05:37: Phosphorus 2.5 L 10/29/24 11:08: POC Glucose 101 10/29/24 16:14: POC Glucose 152 H 10/29/24 22:16: POC Glucose 164 H 10/30/24 06:45: POC Glucose 135 H Physical Exam GI GI Narrative: Abdomen- soft, benign Assessment & Plan Assessment/Plan (1) Intractable abdominal pain: PLAN: I am following this patient in conjunction with Dr. Foster. He will independently evaluate this patient. Patient going with Dr. Tan for an ERCP today for possible gallstone removal No surgical intervention being recommended at this time If gallstone is found and unable to be removed, patient will need to seek treatment from a tertiary facility We will monitor this patient as needed at this time Charges/Coding Visit Charges Inpatient E&M: 19393 [facility] Hosp L1
[2024-10-30 12:34] LABS: Bedside Glucose 132 mg/dL (74-106)
--- NOTE | 2024-10-30 12:51 | PCM.PRE.AN2 ---
ASA Classification* ASA Classification ASA Classification: 3 (Patient has extensive hx, please review. ) Assessment & Plan Anesthesia* Anesthesia Assessment Anesthesia Assessment: Discussed sedation and/or anesthesia options, risks, benefits, and alternatives with patient/parents/legal guardian/POA. Questions invited. The patient/parents/legal guardian/POA seems to understand and agrees to proceed with anesthesia plan. Reviewed the physical assessment, medical history, allergy history and patient home medications list prior to surgery/procedure/anesthetic and documented any changes. Performed airway and anesthesia risk assessments. Anesthesia Type Anesthesia Type: General History Source History Obtained from:: Patient and Chart Anesthesia Focused Assessment* Temperature: 98.0 F Pulse Rate: 74 Blood Pressure: 150/55 Respiratory Rate: 16 Pulse Ox: 97 Oxygen Delivery Method: Room Air Airway Assessment Mouth opens: >3 cm Mallampati Score: II Teeth Condition: Lower, Partial and Upper Neck Range of motion (ROM): Limited ROM (Hx cerivcal neck fusion ) Focused Labs Anesthesia Preop lab: CBC WBC 12.6 K/mm3 (4.4-11.0) H 10/28/24 05:06 10/28/24 RBC 3.67 M/mm3 (4.6-6.2) L 10/28/24 05:06 10/28/24 Hgb 11.7 g/dL (13.0-16.5) L 10/28/24 05:06 10/28/24 Hct 34.6 % (40-54) L 10/28/24 05:06 10/28/24 Plt Count 191 K/mm3 (150-450) 10/28/24 05:06 10/28/24 CHEMISTRY Potassium 4.6 mmol/L (3.3-5.1) 10/28/24 05:06 10/28/24 Sodium 137 mmol/L (133-145) 10/28/24 05:06 10/28/24 Magnesium 2.0 mg/dL (1.5-2.2) 10/27/24 17:01 10/27/24 Phosphorus 2.5 mg/dL (2.7-4.5) L 10/29/24 05:37 10/29/24 BUN 33 mg/dL (4-19) H 10/28/24 05:06 10/28/24 Creatinine 1.53 mg/dL (0.70-1.20) H 10/28/24 05:06 10/28/24 Glucose 131 mg/dL (70-99) H 10/28/24 05:06 10/28/24 POC Glucose 132 mg/dL (74-106) H 10/30/24 12:14 10/30/24 TSH 1.020 uIU/mL (0.300-4.200) 10/27/24 22:35 10/27/24 COAG PT 14.3 SECONDS (11.7-14.9) 10/28/24 05:06 10/28/24 Pre-Assessment Diagnosis/Proposed Procedure Planned Operative Procedure(s): ERCP Anesthesia History Anesthesia History - scale tester: Anesthesia History - scale tester Hx Hospitalization Any Problems With Anesthesia No 10/29/24 22:06 Cholinesterase deficiency No 10/29/24 22:06 You/Your Family Experience No 10/29/24 22:06 fever (hyperthermia) with Relationship Recent Exposure to Contagious No 10/29/24 22:06 Disease Does patient have nerve No 10/29/24 22:06 stimulator Patient instructed to have No 10/29/24 22:06 device shut off --Does patient have Pacemaker No 10/30/24 07:45 or ICD? When Was Last Pacemaker Check QUESTION #4 FULL TEXT: You/Your Family Experience fever (hyperthermia) with Anesthesia Last Oral Intake Last Oral intake: Last Oral Intake NPO since 00:00 10/30/24 07:45 Meds taken in AM with sips of No 10/30/24 07:45 water? Meds patient instructed to take am of surgery PONV PONV - scale tester: PONV - scale tester Female HX of Motion Sickness HX of N/V After Surgery Non-Smoker Duration of Surgery greater than 60 minutes Number of Risk Factors PONV Score Height & Weight Height & Weight: Anesthesia: Height & Weight Height 5 ft 7 in 10/30/24 07:45 Weight: 114.9 kg 10/30/24 07:45 Body Mass Index (BMI) 39.6 10/30/24 07:45 Respiratory Assessment Respiratory Assessment - scale tester: Respiratory Tract Infection Hx - scale tester Hx Respiratory Tract Infection No 10/29/24 22:06 STOP Sleep Apnea STOP Sleep Apnea - scale tester: STOP Sleep Apnea - scale tester Hx Hypertension Yes 10/28/24 08:20 Hx Sleep Apnea No 10/27/24 23:03 CPAP BIPAP Do you snore loudly (louder No 10/27/24 23:03 than talking or can be heard Do you often feel tired/ No 10/27/24 23:03 fatigued/ sleepy during daytime? Has anyone observed you stop No 10/27/24 23:03 breathing during sleep? STOP Results Negative 10/27/24 23:03 QUESTION #5 FULL TEXT : Do you snore loudly (louder than talking or can be heard through closed doors)? 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 Specify any problems Hx of Preganancy in last 3 N/A 10/27/24 23:03 Months Nurse Filling Out Transfusion TMELLOR 10/27/24 23:03 & Questions: Date: 10/27/24 10/27/24 23:03 Time: 23:05 10/27/24 23:03 Patient unable to answer at this time (ie. confused, unrespo /Reproduction History /Reproductive History - scale tester: /Reproductive Hx- scale tester Hx Now No 10/29/24 22:06 Gestational Age (in weeks): EDC: Hx Hx Para Hx Section SAB No 10/29/24 22:06 Active Medications Active Medications: Current Medications Generic Name Dose Route Start Last Admin Trade Name Freq PRN Reason Stop Dose Admin Albuterol Sulfate 2.5 mg 10/27/24 22:49 Albuterol 2.5 Mg/3 Ml Vial.Neb. INHALATION Q2H PRN PRN SOB &/OR WHEEZING Glucagon 1 mg 10/27/24 22:49 Glucagon 1 Mg/Ml Syringe IM X1 PRN HYPOGLYCEMIA Protocol Hydralazine HCl 5 mg 10/27/24 22:49 Hydralazine 20 Mg/Ml Vial IV Q6H PRN PRN SBP GREATER THAN 160 Protocol Pantoprazole Sodium 40 mg/ 110 mls @ 330 mls/hr 10/27/24 22:27 10/29/24 23:47 Sodium Chloride IV Infused 2200 EFE Infusion Dextrose 250 mls @ 0 mls/hr 10/27/24 22:49 Dextrose 10%-Water IV .Q0M PRN HYPOGLYCEMIA Protocol As Directed Sodium Chloride 100 mls @ 15 mls/hr 10/27/24 23:07 IV .Q6H40M PRN Saline Flush Insulin Glargine 10 unit 10/28/24 22:00 10/30/24 00:06 Insulin Glargine-Yfgn 100 Unit/Ml Pen SC 10 unit QHS EFE Administration Insulin Human Lispro 0 unit 10/29/24 07:00 10/30/24 10:47 Insulin Lispro 100 Unit/Ml Insuln.Pen SC Not Given ACHS [facility] Protocol Ketorolac Tromethamine 15 mg 10/27/24 22:49 10/28/24 17:20 Ketorolac 15 Mg/Ml Vial IV 11/01/24 22:49 15 mg Q8H PRN PRN Administration Pain 1-10 or Fever Morphine Sulfate 2 mg 10/28/24 01:53 Morphine 2 Mg/Ml Syringe IV Q4H PRN PRN Pain Score 6-10 Ondansetron HCl 4 mg 10/27/24 22:49 Ondansetron 4 Mg/2 Ml Vial IV Q6H PRN PRN NAUSEA/VOMITING Promethazine HCl 12.5 mg 10/27/24 22:49 Promethazine 25 Mg/Ml Syringe IM Q4H PRN PRN Breakthrough nausea/Vomiting Sodium Chloride 10 - 40 ml 10/27/24 23:07 10/29/24 22:21 0.9% Saline Lock 10 Ml Syringe IV 10 ml UD PRN Administration SALINE FLUSH PFSH Medical History Chest pain Dilated aortic root Diastolic dysfunction Morbidly obese Venous insufficiency Abnormal EKG Atherosclerosis of [place] coronary artery of [place] heart without angina pectoris Left ventricular hypertrophy Hyperlipidemia GERD (gastroesophageal reflux disease) Osteopenia Anemia Arthritis CKD stage 3 secondary to diabetes Hypertension Type 2 diabetes mellitus Home Medications ?Medication ?Instructions ?Recorded ?Last Taken ?Type aspirin 81 mg capsule 81 mg PO DAILY 04/03/23 10/27/24 History calcium 600 mg (as 1 tab PO BID 04/03/23 10/26/24 History carbonate)-vitamin D3 5 mcg (200 unit) tablet (Calcium 600 + D(3)) folic acid 800 mcg tablet 800 mcg PO DAILY 04/03/23 10/27/24 History mecobalamin (vitamin B12) 1,000 1,000 mcg PO .every other day 04/03/23 Unknown History mcg chewable tablet insulin aspart U-100 100 unit/mL See Protocol subcut ACHS 09/05/23 Unknown History (3 mL) subcutaneous pen (Novolog FlexPen U-100 Insulin aspart) ferrous sulfate 325 mg (65 mg 325 mg PO DAILY #90 tabs 01/20/24 10/27/24 Rx iron) tablet,delayed release blood sugar diagnostic (OneTouch #100 ea 02/07/24 Unknown Rx Ultra Test strips) olmesartan 5 mg tablet 5 mg PO DAILY #90 tabs 04/24/24 10/27/24 Rx omeprazole 40 mg capsule,delayed 40 mg PO DAILY #90 caps 05/18/24 10/27/24 Rx release pen needle, diabetic 31 gauge x #300 ea 08/10/24 Unknown Rx 5/16 (BD Ultra-Fine Short Pen Needle) metoprolol tartrate 50 mg tablet 50 mg PO BID 90 days #180 tabs 08/16/24 10/27/24 Rx atorvastatin 20 mg tablet 20 mg PO QHS #90 tabs 10/18/24 10/26/24 Rx furosemide 40 mg tablet 40 mg PO DAILY #90 tabs 10/18/24 10/27/24 Rx allopurinol 100 mg tablet 100 mg PO BID #180 tabs 10/19/24 10/27/24 Rx amlodipine 10 mg tablet 10 mg PO DAILY #90 tabs 10/22/24 10/27/24 Rx insulin degludec 200 unit/mL (3 40 unit (0.2 mL) subcut QHS #9 mL 10/29/24 Unknown Rx mL) subcutaneous pen (Tresiba FlexTouch U-200 insulin) Allergy/AdvReac Type Severity Reaction Status Date / Time latex Allergy Unknown Rash Verified 10/27/24 17:27 bacitracin (From Neosporin Allergy Rash Verified 10/27/24 17:27 ([id number])) neomycin (From Neosporin Allergy Rash Verified 10/27/24 17:27 ([id number])) nickel Allergy PT UNSURE Verified 10/27/24 17:27 OF REACTION polymyxin B (From Neosporin Allergy Rash Verified 10/27/24 17:27 ([id number])) Family History Grandmother Diabetes Father Heart disease Myocardial infarction 59 Cancer prostate and throat Hypertension Hyperlipidemia Mother Cancer lung Brother Aortic aneurysm Cancer prostate Surgical History Cataract extraction status History of foot surgery History of carpal tunnel release Amputation toe Hx of hernia repair H/O lithotripsy S/P cervical spinal fusion Hx of neck surgery Hx of cholecystectomy Social History household members: spouse current occupational 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 Physical Exam Const alert, oriented x3 and average body habitus Resp normal respiratory effort, normal air movement and clear to auscultation bilaterally Cardio regular rate, regular rhythm, no murmurs and diaphoretic
--- NOTE | 2024-10-30 16:26 | PCM.PN.BLA ---
Progress Note Patient in for ERCP today due to retained cystic duct stone. Physical Exam Const alert, oriented x3, no apparent distress and healthy appearing General Appearance: cooperative GI normal to inspection, nondistended, normoactive bowel sounds, soft to palpation, non-tender and non-distended Percussion: normal to percussion Rectal Exam: deferred Assessment & Plan Assessment/Plan (1) Intractable abdominal pain: (2) Calculus of cystic duct: (3) Right upper quadrant abdominal pain: (4) Nausea: (5) Dry heaves: (6) Constipation: QUALIFIERS: Constipation type: unspecified constipation type Qualified Code(s): K59.00 - Constipation, unspecified (7) Leukocytosis: QUALIFIERS: Leukocytosis type: unspecified Qualified Code(s): D72.829 - Elevated white blood cell count, unspecified (8) Fatty liver: (9) Metabolic dysfunction-associated steatotic liver disease (MASLD): (10) Morbid obesity with BMI of 40.0-44.9, adult: PLAN: Plan This is a pleasant 68-year-old gentleman with poorly controlled diabetes mellitus and his device to my latest status post right big toe amputation who comes in with worsening ruq pain, nausea, and bloating that has been getting progressively worse. CT evidence of mildly distended stomach with similar prior appearance to previous CT examination with surgical clips seen in the gallbladder fossa and probable small cystic duct remnant with gallstone. I explained to him a great detail that there's a possibility that we can get to the stone with ERCP. However, it depends on where cystic duct takeoff is and how torturous cystic duct is. I told him we will attempt extraction via ERCP however, if it appears that the cystic duct anatomy is is not amenable to ERCP, then he will need to undergo surgical procedure. Intractable RUQ pain with Nausea, Dry heaves and Constipation also, diagnosis for this would be gastroparesis, Peptic ulcer disease.
--- NOTE | 2024-10-30 16:58 | PCM.PN.HOSP ---
Reason for Visit Reason for Visit: Diagnoses Elevated white blood cell count, unspecified (10/27/24) Morbid (severe) obesity due to excess calories (10/27/24) Constipation, unspecified (10/27/24) Fatty (change of) liver, not elsewhere classified (10/27/24) Calculus of gallbladder without cholecystitis without obstruction (10/27/24) Right upper quadrant pain (10/27/24) Unspecified abdominal pain (10/27/24) Nausea (10/27/24) Vomiting, unspecified (10/27/24) Body mass index [BMI] 40.0-44.9, adult (10/27/24) Subjective Subjective Patient was seen and examined today, he is due to undergo an ERCP today for possible removal of his cystic duct stone. Patient has no complaints of abdominal pain at this time. Objective Data Objective Data Vital Signs: Vital Signs Temp Pulse Resp BP Pulse Ox O2 Del Method 98.0 F 74 16 150/55 H 97 Room Air 10/30/24 12:54 10/30/24 12:54 10/30/24 12:54 10/30/24 12:54 10/30/24 12:54 10/30/24 12:54 Oxygen Delivery Method Room Air Weight: 114.9 kg Body Mass Index (BMI) 39.6 Intake & Output: Intake and Output for Last 24 Hours 10/28/24 10/29/24 10/30/24 23:59 23:59 23:59 Intake Total 1110 / 1110 960 / 960 0 / 0 Balance 1110 / 1110 960 / 960 0 / 0 Lab / Micro Data 10/28/24 05:06 10/28/24 05:06 Labs: Laboratory Results - last 24 hr 10/29/24 22:16: POC Glucose 164 H 10/30/24 06:45: POC Glucose 135 H 10/30/24 12:14: POC Glucose 132 H Physical Exam Narrative alert, oriented x3, no apparent distress and healthy appearing General Appearance: cooperative, well kempt and well developed Orientation / Consciousness: awake, oriented to person, oriented to place and oriented to time HEENT normocephalic, head/scalp atraumatic and moist oral mucous membranes Eyes PERRL, EOMs intact bilaterally and conjunctivae normal Neck supple, no JVD, thyroid normal and no carotid bruits General: trachea midline Resp normal respiratory effort, no retractions, no use of accessory muscles and clear to auscultation bilaterally Auscultation: Negative for rales, rhonchi or wheezes Cardio regular rate, regular rhythm, S1 normal heart sound, S2 normal heart sound, no murmurs, no rub and no gallops GI normal to inspection, nondistended, normoactive bowel sounds, soft to palpation, non-tender and non-distended Extremity no clubbing, cyanosis or edema Skin no rashes or lesions noted General Skin Exam: no breakdown Neuro oriented x3, CN's II-XII intact bilaterally, moves all extremities, no focal motor deficits and no sensory deficits noted Sensorium / Orientation: awake and alert Speech: speech normal Psych affect normal Assessment & Plan Assessment/Plan (1) Intractable abdominal pain: PLAN: Plan 1. Right upper quadrant abdominal pain-resolved at this time, possibly secondary to cystic duct stone, patient will undergo an ERCP today #2 type 2 diabetes-patient is on sliding scale insulin per fingerstick blood sugars #3 essential hypertension-patient will remain on his present blood pressure medication Clinical time spent by my medical issues, reviewing all of his data, and collaborating with patient's care team: 35 minutes Charges/Coding Visit Charges Inpatient E&M: 98378 Subs Hosp L2
--- NOTE | 2024-10-30 17:00 | RAD_ITS ---
PROCEDURE: ERCP BILIARY/PANCREAS 10/30/2024 REASON FOR EXAM: PAIN TECHNIQUE: 7 fluoroscopic spot views submitted from ERCP COMPARISON: CT 10/27/2024 FINDINGS: Fluoroscopy time 68.9 seconds Total dose 34.09 mGy Initial image shows guidewire placement followed by cannulation of the common bile duct and what appears to be the cystic duct. Contrast is seen within the common bile duct and confluence of hepatic ducts. No intrahepatic ductal dilation identified. No persistent filling defect seen. Contrast collection at the gallbladder fossa is noted which overall size is large for the cystic duct with considerations including a dilated cystic duct or residual gallbladder not excluded. Stent is placed within the cystic duct and common bile duct. RAD/ERCP Biliary/Pancreas IMPRESSION: Fluoroscopy during ERCP as above. Reading Location: [id number]
--- NOTE | 2024-10-30 17:30 | OP.CCLET_ITS ---
10/30/2024 More Padilla Md Re : ERCP procedure for Gilmar Ayers Dear Randy This procedure was performed on Wednesday, October 30, 2024. My impressions and recommendations are as follows: Impressions : - Cystic duct stones were found. Complete removal was accomplished by biliary sphincterotomy and balloon extraction. - A biliary sphincterotomy was performed. - The biliary tree was swept. - One temporary stent was placed into the common bile duct. Recommendations : - Return patient to hospital bose for ongoing care. My findings are described in the full procedure note, which is enclosed. If I can be of further assistance, please feel free to contact me at . Sincerely, Benitez Tan, 10/30/2024 5:29:28 PM This report has been signed electronically.
--- NOTE | 2024-10-30 17:30 | OP.ERCP_ITS ---
Patient Name: Gilmar Ayers Procedure Date: 10/30/2024 4:26 PM Date of : 1955 Age: 68 Procedure: ERCP Indications: Bile duct stone(s) Providers: Benitez Tan DO Medicines: Monitored Anesthesia Care Patient Profile: This is a 68 year old male. Refer to note in patient chart for documentation of history and physical. Patient has symptoms of acute right upper quadrant abdominal pain. This patient has no history of previous ERCP. This patient has no history of surgical alteration of the upper digestive tract anatomy. He is status post laparoscopic cholecystectomy recently. Complications: No immediate complications. Procedure: Pre-Anesthesia Assessment: - Prior to the procedure, a History and Physical was performed, and patient medications and allergies were reviewed. The patient is competent. The risks and benefits of the procedure and the sedation options and risks were discussed with the patient. All questions were answered and informed consent was obtained. Patient identification and proposed procedure were verified by the physician in the pre-procedure area. Mental Status Examination: alert and oriented. Airway Examination: normal oropharyngeal airway and neck mobility. Respiratory Examination: clear to auscultation. CV Examination: normal. Prophylactic Antibiotics: The patient does not require prophylactic antibiotics. Prior Anticoagulants: The patient has taken no anticoagulant or antiplatelet agents except for NSAID medication. ASA Grade Assessment: II - A patient with mild systemic disease. After reviewing the risks and benefits, the patient was deemed in satisfactory condition to undergo the procedure. The anesthesia plan was to use general anesthesia. Immediately prior to administration of medications, the patient was re-assessed for adequacy to receive sedatives. The heart rate, respiratory rate, oxygen saturations, blood pressure, adequacy of pulmonary ventilation, and response to care were monitored throughout the procedure. The physical status of the patient was re-assessed after the procedure. After obtaining informed consent, the scope was passed under direct vision. Throughout the procedure, the patient's blood pressure, pulse, and oxygen saturations were monitored continuously. The Duodenoscope was introduced through the mouth, and advanced to the duodenum and used to inject contrast into the bile duct. After obtaining informed consent, the scope was passed under direct vision. Throughout the procedure, the patient's blood pressure, pulse, and oxygen saturations were monitored continuously. The ERCP was accomplished without difficulty. The patient tolerated the procedure well. Scope In: 4:59:01 PM Scope Out: 5:18:16 PM Total Procedure Duration Time 0 hours 19 minutes 15 seconds Findings: The belt back operator film was normal. The esophagus was successfully intubated under direct vision. The scope was advanced to a normal major papilla in the descending duodenum without detailed examination of the pharynx, larynx and associated structures, and upper GI tract. The upper GI tract was grossly normal. The bile duct was deeply cannulated with the short-nosed traction sphincterotome. Contrast was injected. I personally interpreted the bile duct images. There was brisk flow of contrast through the ducts. Image quality was adequate. Contrast extended to the entire biliary tree. Opacification of the entire opacified area was successful. The maximum diameter of the ducts was 10 mm. The cystic duct contained one stone, which was 6 mm in diameter. Placement of a long 0.025 inch Jagwire into the biliary tree was attempted. This passed successfully. A 5 mm biliary sphincterotomy was made with a braided traction (standard) sphincterotome using ERBE electrocautery. There was no post-sphincterotomy bleeding. To discover objects, the biliary tree was swept with a 12 mm balloon starting at the upper third of the main bile duct, middle third of the main bile duct, lower third of the main duct, cystic duct and bifurcation. All cystic duct stones were removed. One 7 Fr by 9 cm temporary stent was placed 5 cm into the common bile duct. Bile flowed through the stent. The stent was in good position. Impression: - Cystic duct stones were found. Complete removal was accomplished by biliary sphincterotomy and balloon extraction. - A biliary sphincterotomy was performed. - The biliary tree was swept. - One temporary stent was placed into the common bile duct. Recommendation: - Return patient to hospital bose for ongoing care. Procedure Code(s): --- Professional --- 54768, Endoscopic retrograde cholangiopancreatography (ERCP); with placement of endoscopic stent into biliary or pancreatic duct, including pre- and post-dilation and guide wire passage, when performed, including sphincterotomy, when performed, each stent [id number], Endoscopic retrograde cholangiopancreatography (ERCP); with removal of calculi/debris from biliary/pancreatic duct(s) 75126, 26, Endoscopic catheterization of the biliary ductal system, radiological supervision and interpretation CPT copyright 2021 [employer]. All rights reserved. The codes documented in this report are preliminary and upon image scientist review may be revised to meet current compliance requirements. Benitez Tan DO 10/30/2024 5:29:28 PM This report has been signed electronically. Number of Addenda: 0 Note Initiated On: 10/30/2024 4:26 PM
--- NOTE | 2024-10-30 17:33 | PCM.POST.ANE ---
Anesthesia: Postop Eval I Current Vital Signs Temperature: 97.2 F Pulse Rate: 75 Blood Pressure: 123/67 Respiratory Rate: 20 Pulse Ox: 96 Oxygen Delivery Method: Room Air Assessment Airway patent: Yes Spontaneous unlabored respirations: Yes Mental status: Awake nausea: No Vomiting: No Anesthesia Complication: No Fluid Hydration Crystalloid volume administer (ml): 150 Total IV fluid infused: 150 Progress Note Anesthesia document: Postop Eval 1 completed: Yes
--- NOTE | 2024-10-30 18:47 | POSTOPAN2_ITS ---
Anesthesia Postop Eval I Sum Postop Eval Completion status Anesthesia document: Postop Eval 1 completed: Yes Anesthesia Postop Eval I Summary Anesthesia Postop Eval I Summary: Anesthesia Postop Eval I: Assessment Summary Airway patent Yes 10/30/24 17:34 METAL [email or web address] [email or web address] Spontaneous unlabored Yes 10/30/24 17:34 METAL [email or web address] [email or web address] respirations Mental status Awake 10/30/24 17:34 METAL [email or web address] [email or web address] nausea No 10/30/24 17:34 METAL [email or web address] [email or web address] Vomiting No 10/30/24 17:34 [email or web address] [email or web address] [email or web address] Anesthesia Postop Eval I: Fluid Summary Crystalloid volume administer 150 10/30/24 17:34 METAL [email or web address] [email or web address] (ml) Colloids volume administered ( ml) Blood Product volume administered (ml) Total IV fluid infused 150 10/30/24 17:34 METAL [email or web address] [email or web address] Anesthesia Postop Eval I: Summary Notes Anesthesia Complication No 10/30/24 17:34 METAL [email or web address] [email or web address] Anesthesia Complication Comment: Post-operative progress note Anesthesia: Postop Eval II Evaluation Mental status: Awake Pain Level: 0 nausea: No Vomiting: No Complications Anesthesia Complication: No
--- NOTE | 2024-10-30 18:47 | PCM.POSTANE2 ---
Anesthesia Postop Eval I Sum Postop Eval Completion status Anesthesia document: Postop Eval 1 completed: Yes Anesthesia Postop Eval I Summary Anesthesia Postop Eval I Summary: Anesthesia Postop Eval I: Assessment Summary Airway patent Yes 10/30/24 17:34 [email or web address] Spontaneous unlabored Yes 10/30/24 17:34 [email or web address] [email or web address] respirations Mental status Awake 10/30/24 17:34 [employer]IOR [email or web address] [email or web address] nausea No 10/30/24 17:34 [employer]IOR [email or web address] [email or web address] Vomiting No 10/30/24 17:34 S[employer]IOR [email or web address] Anesthesia Postop Eval I: Fluid Summary Crystalloid volume administer 150 10/30/24 17:34 S[employer]IOR [email or web address] [email or web address] (ml) Colloids volume administered ( ml) Blood Product volume administered (ml) Total IV fluid infused 150 10/30/24 17:34 SENIOR [email or web address] Anesthesia Postop Eval I: Summary Notes Anesthesia Complication No 10/30/24 17:34 S[employer]IOR [email or web address] [email or web address] Anesthesia Complication Comment: Post-operative progress note Anesthesia: Postop Eval II Evaluation Mental status: Awake Pain Level: 0 nausea: No Vomiting: No Complications Anesthesia Complication: No
[2024-10-30] MEDS: Insulin Lispro 100 UNIT/ML INSULN.PEN SC (22:44)
[2024-10-30] MEDS: Ketorolac 15 MG/ML Vial IV (22:47)
[2024-10-30] MEDS: Pantoprazole Sodium 40 MG in 0.9% Normal Saline (100mL MB+) 100 ML 330 MG IV (22:48)
[2024-10-30 23:15] LABS: Bedside Glucose 182 mg/dL (74-106)
[2024-10-31 02:00] VITALS: BP 128/69; PULSE 70; RESP 16; TEMP 36.9; O2SAT 97
[2024-10-31 05:18] VITALS: BP 130/68; PULSE 69; RESP 16; TEMP 36.9; O2SAT 96
--- NOTE | 2024-10-31 07:02 | PCM.DC ---
Discharge Instructions Diet Discharge Diet: 1800 Calorie Control Diet DC O2, CPAP, BIPAP needs Home O2 Discharge instructions: No Dressing / Incision Discharge Activity: Return to Normal Activity Weight Bearing Status: Full weight bearing Follow Up Care Test Results: Test results from this visit will be discussed in further detail at your follow-up appointment, if applicable. Discharge Plan Admission Admit Date/Time: 10/27/24 22:15 Primary Reason for Your Visit: Abdominal pain secondary to cystic duct stones Attending Provider: Vivek Beckett Primary Care Provider: More Padilla Consulting Providers: Curtis Foster; Gold Parry; Nav Mobley Discharge Orders/Prescriptions Prescriptions: Continued insulin aspart U-100 [Novolog FlexPen U-100 Insulin] 100 unit/mL (3 mL) insulin pen See Protocol SUBCUT [facility] Protocol: 6. Sliding Scale Insulin Custom Condition: mg/dl range Dose/Route: Number of Units Dose/Route: 3 units Instruction: >150 Dose/Route: 5 units Instruction: >175 Dose/Route: 7 unis Instruction: >200 Protocol Text: Custom Sliding Scale Patient Comments: USE A SLIDING SCALE 3 TIMES A DAY UP TO 45 UNITS A DAY UNDERSKIN DIRECTED 90 aspirin 81 mg capsule 81 mg PO DAILY folic acid 800 mcg tablet 800 mcg PO DAILY mecobalamin (vitamin B12) 1,000 mcg tablet,chewable 1,000 mcg PO .every other day calcium carbonate-vitamin D3 [Calcium 600 + D(3)] 600 mg-5 mcg (200 unit) tablet 1 tab PO BID ferrous sulfate 325 mg (65 mg iron) tablet,delayed release (DR/EC) 325 mg PO DAILY Qty: 90 0RF (DME) OneTouch Ultra Test Strip See Rx Instructions .Route Qty: 100 3RF Rx Instructions: As directed to check BG three times daily for DMII olmesartan 5 mg tablet 5 mg PO DAILY Qty: 90 1RF omeprazole 40 mg capsule,delayed release(DR/EC) 40 mg PO DAILY Qty: 90 1RF (DME) pen needle, diabetic [BD Ultra-Fine Short Pen Needle] 31 gauge x 5/16 needle See Rx Instructions .Route Qty: 300 2RF Rx Instructions: As directed three times daily for DMII metoprolol tartrate 50 mg tablet 50 mg PO BID 90 Days Qty: 180 1RF atorvastatin 20 mg tablet 20 mg PO QHS Qty: 90 1RF furosemide 40 mg tablet 40 mg PO DAILY Qty: 90 1RF allopurinol 100 mg tablet 100 mg PO BID Qty: 180 1RF amlodipine 10 mg tablet 10 mg PO DAILY Qty: 90 1RF insulin degludec [Tresiba FlexTouch U-200] 200 unit/mL (3 mL) insulin pen 40 unit subcut QHS Qty: 9 2RF Referrals / Follow Up: More Padilla MD [Primary Care Provider] - Within 1 Month Benitez Tan DO [Med Staff - Active Staff] - See Referral Note (Make appointment for 3 weeks-call office and tell them that you were hospitalized and saw Dr. Tan in the hospital) Disposition Disposition (needs filled in before D/C Order can be placed): Home, Self Care
--- NOTE | 2024-10-31 07:07 | DS.PCM_ITS ---
Providers Date of Admission: 10/27/24 Date of Discharge: 10/31/24 Primary Care Physician: Dr. More Padilla MD Consultations 10/27/24 22:49 Consult: Gastroenterology Routine Consulting Provider: [facility] Reason for Consult: Small cystic duct remnant with gallstone and RUQ pain. EMERGENT Consult: No Notified: Yes Date Notified: 10/27/24 Time Notified: 22:18 Method of Notification: ED Physician Initiated Consult: General Surgery Routine Consulting Provider: Curtis Foster Reason for Consult: Small cystic duct remnant with gallstone and RUQ pain. EMERGENT Consult: No Notified: Yes Date Notified: 10/27/24 Time Notified: 22:18 Method of Notification: ED Physician Initiated Reason For Visit: INTRACTABLE RUQ PAIN CYSTIC DUCT STONE Diagnosis Discharge Diagnosis (1) Intractable abdominal pain: Status: Acute Code(s): R10.9 - Unspecified abdominal pain Plan 1. Right upper quadrant abdominal pain-resolved at this time, possibly secondary to cystic duct stone, patient will undergo an ERCP today #2 type 2 diabetes-patient is on sliding scale insulin per fingerstick blood sugars #3 essential hypertension-patient will remain on his present blood pressure medication #4 chronic kidney disease stage IIIa Clinical time spent by my medical issues, reviewing all of his data, and collaborating with patient's care team: 35 minutes Medications at Discharge Home Medications aspirin 81 mg capsule 81 mg PO DAILY 04/03/23 calcium 600 mg (as carbonate)-vitamin D3 5 mcg (200 unit) tablet (Calcium 600 + D(3)) 1 tab PO BID 04/03/23 folic acid 800 mcg tablet 800 mcg PO DAILY 04/03/23 mecobalamin (vitamin B12) 1,000 mcg chewable tablet 1,000 mcg PO .every other day 04/03/23 insulin aspart U-100 100 unit/mL (3 mL) subcutaneous pen (Novolog FlexPen U-100 Insulin aspart) See Protocol subcut [facility] 09/05/23 ferrous sulfate 325 mg (65 mg iron) tablet,delayed release 325 mg PO DAILY #90 tabs 01/20/24 blood sugar diagnostic (Lemur IMSTouch Ultra Test strips) #100 ea 02/07/24 olmesartan 5 mg tablet 5 mg PO DAILY #90 tabs 04/24/24 omeprazole 40 mg capsule,delayed release 40 mg PO DAILY #90 caps 05/18/24 pen needle, diabetic 31 gauge x 5/16 (BD Ultra-Fine Short Pen Needle) #300 ea 08/10/24 metoprolol tartrate 50 mg tablet 50 mg PO BID 90 days #180 tabs 08/16/24 atorvastatin 20 mg tablet 20 mg PO QHS #90 tabs 10/18/24 furosemide 40 mg tablet 40 mg PO DAILY #90 tabs 10/18/24 allopurinol 100 mg tablet 100 mg PO BID #180 tabs 10/19/24 amlodipine 10 mg tablet 10 mg PO DAILY #90 tabs 10/22/24 insulin degludec 200 unit/mL (3 mL) subcutaneous pen (Tresiba FlexTouch U-200 insulin) 40 unit (0.2 mL) subcut QHS #9 mL 10/29/24 ciprofloxacin HCl 500 mg tablet 500 mg PO BID 7 days #14 tabs 10/31/24 metronidazole 500 mg tablet 500 mg PO BID 7 days #14 tabs 10/31/24 triamcinolone acetonide 0.1 % topical ointment 1 applic topical BID #30 grams 11/02/24 Hospital Course Operations None Procedures - (ERCP with removal of cystic duct stone) Summary of Care Provided Minutes Spent on Discharge: 31 Hospital Course: This 68-year-old white male was seen in the emergency room at [facility] with complaints of right upper quadrant and right flank pain that started approximately 6 and half hours previously. He had a similar episode about a month and a half prior and it resolved on its own. Patient has also been sent to a foundation digger for fatty liver evaluation. Patient describes the pain as dull and achy, workup in the emergency room showed an slightly elevated white blood cell count at 13.4, hemoglobin was 12.6, chemistry profile was remarkable for BUN of 36 and creatinine of 1.7, UA was unremarkable. Patient had an abdomen and pelvis CT performed which showed a probable small cystic duct remnant with a gallstone, this did not appear to be inflamed. Patient was admitted to [facility], his pain resolved and the patient underwent an abdominal ultrasound and was seen in consultation by general surgery. Patient was also seen by gastroenterology. Ultrasound showed a common bile duct to be 5 mm and there was no evidence of choledocholithiasis, the cystic duct remnant which is visualized on ultrasound did not show evidence of a stone. The right kidney was unremarkable. Decision was made to take the patient for an ERCP, cystic duct stones were found, removal was accomplished by biliary sphincterotomy and balloon extraction, 1 temporary stent was placed into the common bile duct. On 10/31/2024, patient was seen and examined: On examination he appeared in good health and spirits. Vital signs as documented. Skin warm and dry and without overt rashes. Neck without JVD, neck was supple, trachea midline, thyroid was normal. Lungs clear bilaterally, normal air movement was noted. Heart exam notable for regular rhythm, normal sounds and absence of murmurs, rubs or gallops. Abdomen unremarkable and without evidence of organomegaly, masses, or abdominal aortic enlargement. Bowel sounds are present, abdomen is not distended. Extremities nonedematous, no cyanosis was noted, no clubbing was noted. Neuro: Cranial nerves II through XII are grossly intact, no focal motor deficits were noted, sensation to light touch and pinprick intact, motor exam 5/5 throughout. Psych: Patient is alert and oriented x3, he does not appear anxious or depressed, he does not appear agitated. Patient was discharged home in stable condition on 10/31/2024 Weight / BMI Weight Weight: 114.9 kg Body Mass Index (BMI) 39.6 ABG / Lab / Microbiology Data 10/28/24 05:06 10/28/24 05:06 Laboratory: Laboratory Results - last 24 hr 10/30/24 12:14: POC Glucose 132 H 10/30/24 22:43: POC Glucose 182 H Radiography Diagnostic Testing: Radiology Impression Endo Retro Cholangiopancreatogram 10/30/24 17:00 IMPRESSION: Fluoroscopy during ERCP as above. Reading Location: [id number] D/C Instructions Discharge Diet: 1800 Calorie Control Diet Weight Bearing Status: Full weight bearing DC O2, CPAP, BIPAP Needs Home O2 Discharge instructions: No Meaningful Use Info Meaningful Use Meaningful Use Diagnoses (Choose all that apply): None applicable Ischemic Stroke Statin Dosing Therapy Reference: STATIN DOSE THERAPY REFERENCE: * Patients > 75 years receive moderate or high dose statin therapy. * Patients 75 years or YOUNGER should receive HIGH intensity statin dose unless contraindicated. You will be required to document reason for non-treatment if statin daily dose does not meet guidelines. HIGH DOSE STATIN THERAPY DAILY Atorvastatin > than or = to 40 mg Rosuvastatin > than or = to 20 mg Amlodipine + Atorvastatin > than or = to 2.5/40 mg Ezetimibe + Simvastatin 10/80 mg Simvastatin 80mg Discharge Plan Admission Admit Date/Time: 10/27/24 22:15 Primary Reason for Your Visit: Abdominal pain secondary to cystic duct stones Attending Provider: Vivek Beckett Primary Care Provider: More Padilla Consulting Providers: Curtis Foster; Gold Parry; Nav Mobley Discharge Orders/Prescriptions Prescriptions: Continued insulin aspart U-100 [Novolog FlexPen U-100 Insulin] 100 unit/mL (3 mL) insulin pen See Protocol SUBCUT [facility] Protocol: 6. Sliding Scale Insulin Custom Condition: mg/dl range Dose/Route: Number of Units Dose/Route: 3 units Instruction: >150 Dose/Route: 5 units Instruction: >175 Dose/Route: 7 unis Instruction: >200 Protocol Text: Custom Sliding Scale Patient Comments: USE A SLIDING SCALE 3 TIMES A DAY UP TO 45 UNITS A DAY UNDERSKIN DIRECTED 90 aspirin 81 mg capsule 81 mg PO DAILY folic acid 800 mcg tablet 800 mcg PO DAILY mecobalamin (vitamin B12) 1,000 mcg tablet,chewable 1,000 mcg PO .every other day calcium carbonate-vitamin D3 [Calcium 600 + D(3)] 600 mg-5 mcg (200 unit) tablet 1 tab PO BID ferrous sulfate 325 mg (65 mg iron) tablet,delayed release (DR/EC) 325 mg PO DAILY Qty: 90 0RF (DME) OneTouch Ultra Test Strip See Rx Instructions .Route Qty: 100 3RF Rx Instructions: As directed to check BG three times daily for DMII olmesartan 5 mg tablet 5 mg PO DAILY Qty: 90 1RF omeprazole 40 mg capsule,delayed release(DR/EC) 40 mg PO DAILY Qty: 90 1RF (DME) pen needle, diabetic [BD Ultra-Fine Short Pen Needle] 31 gauge x 5/16 needle See Rx Instructions .Route Qty: 300 2RF Rx Instructions: As directed three times daily for DMII metoprolol tartrate 50 mg tablet 50 mg PO BID 90 Days Qty: 180 1RF atorvastatin 20 mg tablet 20 mg PO QHS Qty: 90 1RF furosemide 40 mg tablet 40 mg PO DAILY Qty: 90 1RF allopurinol 100 mg tablet 100 mg PO BID Qty: 180 1RF amlodipine 10 mg tablet 10 mg PO DAILY Qty: 90 1RF insulin degludec [Tresiba FlexTouch U-200] 200 unit/mL (3 mL) insulin pen 40 unit subcut QHS Qty: 9 2RF No Action triamcinolone acetonide 0.1 % ointment 1 applic topical BID Qty: 30 0RF metronidazole 500 mg tablet 500 mg PO BID 7 Days Qty: 14 0RF ciprofloxacin HCl 500 mg tablet 500 mg PO BID 7 Days Qty: 14 0RF Referrals / Follow Up: More Padilla MD [Primary Care Provider] - 11/07/24 8:00 am Benitez Tan DO [Med Staff - Active Staff] - 11/22/24 9:00 am (Make appointment for 3 weeks-call office and tell them that you were hospitalized and saw Dr. Tan in the hospital) Disposition Disposition (needs filled in before D/C Order can be placed): Home, Self Care Charges/Coding Visit Charges Inpatient E&M: 49296 Disch Hosp >30min
[2024-10-31 07:09] LABS: Bedside Glucose 113 mg/dL (74-106)
[2024-10-31 07:42] VITALS: O2SAT 95
[2024-10-31 07:46] VITALS: BP 148/75; PULSE 65; RESP 18; TEMP 36.5; O2SAT 98
--- NOTE | 2024-10-31 08:18 | PCM.PN.SRG ---
Subjective Subjective Patient evaluated this morning. Patient denies any upper abdominal pain. He is tolerating his current diet without nausea, vomiting. He denies any fever over night. He notes overall feeling improved. Objective Data Objective Data Vital Signs: Vital Signs Temp Pulse Resp BP Pulse Ox O2 Del Method 97.7 F L 65 18 148/75 H 98 Room Air 10/31/24 07:46 10/31/24 07:46 10/31/24 07:46 10/31/24 07:46 10/31/24 07:46 10/31/24 07:46 Oxygen Delivery Method Room Air Weight: 253 lb 4.978 oz Body Mass Index (BMI) 39.6 Intake & Output: Intake and Output for Last 24 Hours 10/29/24 10/30/24 10/31/24 23:59 23:59 23:59 Intake Total 960 / 960 400 / 400 110 / 110 Balance 960 / 960 400 / 400 110 / 110 Lab / Micro Data 10/28/24 05:06 10/28/24 05:06 Labs: Laboratory Results - last 24 hr 10/30/24 12:14: POC Glucose 132 H 10/30/24 22:43: POC Glucose 182 H 10/31/24 06:44: POC Glucose 113 H Radiography Diagnostic Testing: Radiology Impression Endo Retro Cholangiopancreatogram 10/30/24 17:00 IMPRESSION: Fluoroscopy during ERCP as above. Reading Location: [facility] Physical Exam GI GI Narrative: Abdomen- soft, benign Assessment & Plan Assessment/Plan (1) Calculus of cystic duct: (2) Intractable abdominal pain: PLAN: Plan I am following this patient in conjunction with Dr. Foster. Patient mentioned that during the ERCP purulent fluid was found. Does patient need placed on antibiotics at discharge? Last WBC was on 10/28 at 12.6 Patient is tolerating current diet From a surgery standpoint, patient may be discharged No follow-up needed to our office Charges/Coding Visit Charges Inpatient E&M: 82496 [facility] [place] Hosp L1
--- NOTE | 2024-10-31 08:49 | CASEMGMT ---
ISAAC QUINN into pt room, pt sitting up in bed eating breakfast. Pt denies any homegoing needs but questions if he will be sent home on an antibiotic. Pt aware that the nurse will review his meds upon dc with him and ISAAC QUINN will speak to nurse regarding his concern. Updated Kaylene nurse of pt question.
--- NOTE | 2024-10-31 09:57 | PHA.DC.MR.R ---
Pharmacy [place] Med Reconciliation Pharmacy Service has performed discharge medication reconciliation for this patient. The patient's discharge medication list was reviewed for discrepancies and discrepancies were resolved. Medications at Discharge Home Medications aspirin 81 mg capsule 81 mg PO DAILY 04/03/23 calcium 600 mg (as carbonate)-vitamin D3 5 mcg (200 unit) tablet (Calcium 600 + D(3)) 1 tab PO BID 04/03/23 folic acid 800 mcg tablet 800 mcg PO DAILY 04/03/23 mecobalamin (vitamin B12) 1,000 mcg chewable tablet 1,000 mcg PO .every other day 04/03/23 insulin aspart U-100 100 unit/mL (3 mL) subcutaneous pen (Novolog FlexPen U-100 Insulin aspart) See Protocol subcut [facility] 09/05/23 ferrous sulfate 325 mg (65 mg iron) tablet,delayed release 325 mg PO DAILY #90 tabs 01/20/24 blood sugar diagnostic (OneTouch Ultra Test strips) #100 ea 02/07/24 olmesartan 5 mg tablet 5 mg PO DAILY #90 tabs 04/24/24 omeprazole 40 mg capsule,delayed release 40 mg PO DAILY #90 caps 05/18/24 pen needle, diabetic 31 gauge x 5/16 (BD Ultra-Fine Short Pen Needle) #300 ea 08/10/24 metoprolol tartrate 50 mg tablet 50 mg PO BID 90 days #180 tabs 08/16/24 atorvastatin 20 mg tablet 20 mg PO QHS #90 tabs 10/18/24 furosemide 40 mg tablet 40 mg PO DAILY #90 tabs 10/18/24 allopurinol 100 mg tablet 100 mg PO BID #180 tabs 10/19/24 amlodipine 10 mg tablet 10 mg PO DAILY #90 tabs 10/22/24 insulin degludec 200 unit/mL (3 mL) subcutaneous pen (Tresiba FlexTouch U-200 insulin) 40 unit (0.2 mL) subcut QHS #9 mL 10/29/24
[2024-10-31] MEDS: Ciprofloxacin 400 MG/200 ML BAG 200 MG IV (10:07)
[2024-10-31] MEDS: metroNIDAZOLE 500 MG/100 ML BAG 100 MG IV (11:16)
[2024-10-31] MEDS: Insulin Lispro 100 UNIT/ML INSULN.PEN SC (11:55)
[2024-10-31 12:06] LABS: Bedside Glucose 165 mg/dL (74-106)
--- NOTE | 2024-10-31 15:56 | NURSING ---
All documentation by nursing staffing coordinator Pamela Joel reviewed by nursing aide Candice WALSHN, RN.
== END 2024-10-31 13:07 | disposition home or self-care (01) ==
LOC: ED 21:29 → MS3 10-28 07:16
PROVIDERS: Internal Medicine Gastroenterology; Admitting Provider Internal Medicine; Emergency Provider Emergency Medicine; PCP Internal Medicine; Visit Provider Internal Medicine
PROC: (CPT 43260; principal; 2024-10-30 15:10)
DX: K80.20 Calculus of gallbladder without cholecystitis without obstruction (principal); E66.01 Morbid (severe) obesity due to excess calories; Z68.41 Body mass index [BMI] 40.0-44.9, adult; E11.22 Type 2 diabetes mellitus with diabetic chronic kidney disease; Z79.4 Long term (current) use of insulin; N18.31 Chronic kidney disease, stage 3a; K76.0 Fatty (change of) liver, not elsewhere classified; K21.9 Gastro-esophageal reflux disease without esophagitis; I12.9 Hypertensive chronic kidney disease with stage 1 through stage 4 chronic kidney disease, or unspecified chronic kidney disease; Z79.899 Other long term (current) drug therapy; Z79.82 Long term (current) use of aspirin; E78.5 Hyperlipidemia, unspecified; D50.9 Iron deficiency anemia, unspecified; I25.10 Atherosclerotic heart disease of native coronary artery without angina pectoris; M10.9 Gout, unspecified; K59.00 Constipation, unspecified; N40.0 Benign prostatic hyperplasia without lower urinary tract symptoms
CPT/HCPCS: 43264; 43274; 36415; 74177; 74330; 76000; 76705; 80053; 80061; 81001; 82607; 82746; 82962; 83036; 83690; 83735; 84100; 84153; 84443; 84484; 85025; 85610; 94668; 96361; 96365; 96366; 96367; 96375; 96376; 99221; 99285; Q9967; A4216; G0103; G0378; J0744; J2405

== ENCOUNTER 2024-11-28 08:11 | Day surgery (SDC) | payer MEDICARE, SELFPAY ==
--- NOTE | 2024-11-22 16:48 | PAT.ANE_ITS ---
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 When Was Last Pacemaker Check QUESTION #4 FULL TEXT: You/Your Family Experience fever (hyperthermia) with Anesthesia Last Oral Intake Last Oral intake: Last Oral Intake NPO since Meds taken in AM with sips of water? 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 Has anyone observed you stop No 11/22/24 15:00 breathing during sleep? STOP Results Positive 11/22/24 15:00 QUESTION #5 FULL TEXT : Do you snore loudly (louder than talking or can be heard through closed doors)? 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 Specify any problems Hx of Preganancy in last 3 N/A 11/22/24 15:00 Months Nurse Filling Out Transfusion [facility]LE[facility]MAN 11/22/24 15:00 & Questions: Date: 11/22/24 11/22/24 15:00 Time: 15:12 11/22/24 15:00 Patient unable to answer at this time (ie. 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 farmer Hx Now Gestational Age (in weeks): EDC: Hx Hx Para Hx Section SAB [facility] Medical History (Updated 11/22/24 @ 15:11 by Madhavi Boyce) Wears glasses Insulin dependent diabetes mellitus Diabetes History of renal disease Low iron Fatty liver High cholesterol Injury of head and neck Dietary restriction History of hiatal hernia Non-smoker History of edema History of echocardiogram History of stress test Cardiology follow-up encounter Morbid obesity with BMI of 40.0-44.9, adult Leukocytosis Constipation Dry heaves Nausea Intractable abdominal pain Calculus of cystic duct Right upper quadrant abdominal pain Fatty liver Metabolic dysfunction-associated steatotic liver disease (MASLD) Chest pain Dilated aortic root Diastolic dysfunction Morbidly obese Venous insufficiency Abnormal EKG Atherosclerosis of [place] coronary artery of [place] heart without angina pectoris Left ventricular hypertrophy Hyperlipidemia GERD (gastroesophageal reflux disease) Osteopenia Anemia Arthritis CKD stage 3 secondary to diabetes Hypertension Type 2 diabetes mellitus Home Medications ?Medication ?Instructions ?Recorded ?Last Taken ?Type aspirin 81 mg capsule 81 mg PO DAILY 04/03/2305/09 History calcium 600 mg (as 1 tab PO BID 04/03/23 History carbonate)-vitamin D3 5 mcg (200 unit) tablet (Calcium 600 + D(3)) folic acid 800 mcg tablet 800 mcg PO DAILY 04/03/23 History mecobalamin (vitamin B12) 1,000 1,000 mcg PO .every ot her day 04/03/23 Unknown History mcg chewable tablet insulin aspart U-100 100 unit/mL See Protocol subcut [facility] 09/05/23 Unknown History (3 mL) subcutaneous pen (Novolog FlexPen U-100 Insulin aspart) ferrous sulfate 325 mg (65 mg 325 mg PO DAILY #90 tabs 01/20/24 11/21/24 Rx iron) tablet,delayed release blood sugar diagnostic (OneTouch #100 ea 02/07/24 Unkn own Rx Ultra Test strips) olmesartan 5 mg tablet 5 mg PO DAILY #90 tabs 04/2410/27/24 Rx pen needle, diabetic 31 gauge x #300 ea 08/10/24 Unkno wn Rx 12/28 (BD Ultra-Fine Short Pen Needle) metoprolol tartrate 50 mg tablet 50 mg PO BID 90 days #180 tabs 08/16/24 10/27/24 Rx atorvastatin 20 mg tablet 20 mg PO QHS #90 tabs 10/26/24 Rx furosemide 40 mg tablet 40 mg PO DAILY #90 tabs 030 02/0610/27/24 Rx allopurinol 100 mg tablet 100 mg PO BID #180 tabs 03/0 03/0810/27/24 Rx amlodipine 10 mg tablet 10 mg PO DAILY #90 tabs 10/1310/27/24 Rx insulin degludec 200 unit/mL (3 40 unit (0.2 mL) subcu t QHS #9 mL 10/29/24 Unknown Rx mL) subcutaneous pen (Tresiba FlexTouch U-200 insulin) pantoprazole 40 mg tablet,delayed 40 mg PO QDAY #30 ta bs 11/07/24 Unknown Rx release ascorbic acid (vitamin C) 500 mg 500 mg PO DAILY 11/22 Unknown History tablet (C-500) cholecalciferol (vitamin D3) 25 25 mcg PO DAILY Unknown History mcg (1,000 unit) capsule (Vitamin D3) polyethylene glycol 3350 17 4 g PO QDAY 11/22/24 Unkno wn History gram/dose oral powder (Miralax) triamcinolone acetonide 0.1 % 1 applic topical BID PRN rash 11/22/24 Unknown History topical ointment Allergy/AdvReac Type Severity Reaction Status Date / Time latex Allergy Unknown Rash Verified 11/22/24 09:02 bacitracin (From Neosporin Allergy Rash Verified 11/22/24 09:02 ([id number])) neomycin (From Neosporin Allergy Rash Verified 11/22/24 09:02 ([id number])) nickel Allergy PT UNSURE Verified 11/22/24 09:02 OF REACTION polymyxin B (From Neosporin Allergy Rash Verified 11/22/24 09:02 ([id number])) Family History Grandmother Diabetes Father Heart disease Myocardial infarction 59 Cancer prostate and throat Hypertension Hyperlipidemia Mother Cancer lung Brother Aortic aneurysm Cancer prostate Surgical History (Updated 11/22/24 @ 15:11 by Madhavi Boyce) History of cardiac catheterization Cataract extraction status History of foot surgery History of carpal tunnel release Amputation toe Hx of hernia repair H/O lithotripsy S/P cervical spinal fusion Hx of neck surgery Hx of cholecystectomy Social History household members: spouse current occupational 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 Sinus bradycardia. Poor R wave progression?may be secondary to pulmonary disease. Consider old anterior infarct. Stress test pertinent findings: October 18, 2024. Ejection fraction 58%. No reversible ischemia. Small fixed apical perfusion defect that could denote transmural infarct. Consult pertinent findings: October 03, 2024. Dr. Toscano. 1. Hypertension?chronic-blood pressure elevated in the office today?reports is not usual for him. 2. Morbidly obese?acute-needs routine exercise program. Also diet modification. 3. Type 2 diabetes mellitus?managed by primary service. 4. Chest [id number] shows possible old infarct. Plan for stress test. (See above). Recommendation Anesthesia Recommendation Anesthesia recommendation: F/U recommended (To the patient also have an echo? I do not see it. We do not necessarily need it.)
--- NOTE | 2024-11-23 10:58 | PAT.ANE_ITS ---
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 When Was Last Pacemaker Check QUESTION #4 FULL TEXT: You/Your Family Experience fever (hyperthermia) with Anesthesia Last Oral Intake Last Oral intake: Last Oral Intake NPO since Meds taken in AM with sips of water? 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 Has anyone observed you stop No 11/22/24 15:00 breathing during sleep? STOP Results Positive 11/22/24 15:00 QUESTION #5 FULL TEXT : Do you snore loudly (louder than talking or can be heard through closed doors)? 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 Specify any problems Hx of Preganancy in last 3 N/A 11/22/24 15:00 Months Nurse Filling Out Transfusion [facility]LE[facility]MAN 11/22/24 15:00 & Questions: Date: 11/22/24 11/22/24 15:00 Time: 15:12 11/22/24 15:00 Patient unable to answer at this time (ie. 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 Hx Now Gestational Age (in weeks): EDC: Hx Hx Para Hx Section [facility]AB [facility] Medical History (Updated 11/22/24 @ 15:11 by Madhavi Boyce) Wears glasses Insulin dependent diabetes mellitus Diabetes History of renal disease Low iron Fatty liver High cholesterol Injury of head and neck Dietary restriction History of hiatal hernia Non-smoker History of edema History of echocardiogram History of stress test Cardiology follow-up encounter Morbid obesity with BMI of 40.0-44.9, adult Leukocytosis Constipation Dry heaves Nausea Intractable abdominal pain Calculus of cystic duct Right upper quadrant abdominal pain Fatty liver Metabolic dysfunction-associated steatotic liver disease (MASLD) Chest pain Dilated aortic root Diastolic dysfunction Morbidly obese Venous insufficiency Abnormal EKG Atherosclerosis of [place] coronary artery of [place] heart without angina pectoris Left ventricular hypertrophy Hyperlipidemia GERD (gastroesophageal reflux disease) Osteopenia Anemia Arthritis CKD stage 3 secondary to diabetes Hypertension Type 2 diabetes mellitus Home Medications ?Medication ?Instructions ?Recorded ?Last Taken ?Type aspirin 81 mg capsule 81 mg PO DAILY 04/03/2305/09 History calcium 600 mg (as 1 tab PO BID 04/03/23 History carbonate)-vitamin D3 5 mcg (200 unit) tablet (Calcium 600 + D(3)) folic acid 800 mcg tablet 800 mcg PO DAILY 04/03/23 History mecobalamin (vitamin B12) 1,000 1,000 mcg PO .every ot her day 04/03/23 Unknown History mcg chewable tablet insulin aspart U-100 100 unit/mL See Protocol subcut [facility] 09/05/23 Unknown History (3 mL) subcutaneous pen (Novolog FlexPen U-100 Insulin aspart) ferrous sulfate 325 mg (65 mg 325 mg PO DAILY #90 tabs 01/20/24 11/21/24 Rx iron) tablet,delayed release blood sugar diagnostic (OneTouch #100 ea 02/07/24 Unkn own Rx Ultra Test strips) olmesartan 5 mg tablet 5 mg PO DAILY #90 tabs 04/2410/27/24 Rx pen needle, diabetic 31 gauge x #300 ea 08/10/24 Unkno wn Rx 12/28 (BD Ultra-Fine Short Pen Needle) metoprolol tartrate 50 mg tablet 50 mg PO BID 90 days #180 tabs 08/16/24 10/27/24 Rx atorvastatin 20 mg tablet 20 mg PO QHS #90 tabs 10/26/24 Rx furosemide 40 mg tablet 40 mg PO DAILY #90 tabs 030 02/0610/27/24 Rx allopurinol 100 mg tablet 100 mg PO BID #180 tabs 03/0 03/0810/27/24 Rx amlodipine 10 mg tablet 10 mg PO DAILY #90 tabs 10/1310/27/24 Rx insulin degludec 200 unit/mL (3 40 unit (0.2 mL) subcu t QHS #9 mL 10/29/24 Unknown Rx mL) subcutaneous pen (Tresiba FlexTouch U-200 insulin) pantoprazole 40 mg tablet,delayed 40 mg PO QDAY #30 ta bs 11/07/24 Unknown Rx release ascorbic acid (vitamin C) 500 mg 500 mg PO DAILY 11/22 Unknown History tablet (C-500) cholecalciferol (vitamin D3) 25 25 mcg PO DAILY Unknown History mcg (1,000 unit) capsule (Vitamin D3) polyethylene glycol 3350 17 4 g PO QDAY 11/22/24 Unkno wn History gram/dose oral powder (Miralax) triamcinolone acetonide 0.1 % 1 applic topical BID PRN rash 11/22/24 Unknown History topical ointment Allergy/AdvReac Type Severity Reaction Status Date / Time latex Allergy Unknown Rash Verified 11/22/24 09:02 bacitracin (From Neosporin Allergy Rash Verified 11/22/24 09:02 ([id number])) neomycin (From Neosporin Allergy Rash Verified 11/22/24 09:02 ([id number])) nickel Allergy PT UNSURE Verified 11/22/24 09:02 OF REACTION polymyxin B (From Neosporin Allergy Rash Verified 11/22/24 09:02 ([id number])) Family History Grandmother Diabetes Father Heart disease Myocardial infarction 59 Cancer prostate and throat Hypertension Hyperlipidemia Mother Cancer lung Brother Aortic aneurysm Cancer prostate Surgical History (Updated 11/22/24 @ 15:11 by Madhavi Boyce) History of cardiac catheterization Cataract extraction status History of foot surgery History of carpal tunnel release Amputation toe Hx of hernia repair H/O lithotripsy S/P cervical spinal fusion Hx of neck surgery Hx of cholecystectomy Social History household members: spouse 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 Sinus 11/22/24 16:54 bradycardia. Poor R wave progression?may be secondary to pulmonary disease. Consider old anterior infarct. Stress Test Pertinent Findings Stress test pertinent findings October 18, 2024. Ejection 11/22/24 16:54 fraction 58%. No reversible ischemia. Small fixed apical perfusion defect that could denote transmural infarct. Consult Pertinent Findings Consult pertinent findings October 03, 2024. 11/22/24 16:58 [place]. 1. Hypertension?chronic- blood pressure elevated in the office today?reports is not usual for him. 2. Morbidly obese?acute- needs routine exercise program. Also diet modification. 3. Type 2 diabetes mellitus ?managed by primary service. 4. Chest [id number] shows possible old infarct. Plan for stress test. (See above). Pertinent Findings Echo (EF%) pertinent findings: 05/19/2022. EF 50 to 55%. No pulmonary hypertension. Essentially normal valves. Recommendation Anesthesia Recommendation Anesthesia recommendation: OPTIMIZED for anesthesia
[2024-11-28] VITALS (8 sets, daily range): BP systolic 87–125; BP diastolic 40–57; PULSE 49–62; RESP 16–17; TEMP 36.2–36.5; O2SAT 95–100; BMI 38.3
--- NOTE | 2024-11-28 08:41 | PCM.PRE.AN2 ---
ASA Classification* ASA Classification ASA Classification: 3 Assessment & Plan Anesthesia* Anesthesia Assessment Anesthesia Assessment: Discussed sedation and/or anesthesia options, risks, benefits, and alternatives with patient/parents/legal guardian/POA. Questions invited. The patient/parents/legal guardian/POA seems to understand and agrees to proceed with anesthesia plan. Reviewed the physical assessment, medical history, allergy history and patient home medications list prior to surgery/procedure/anesthetic and documented any changes. Performed airway and anesthesia risk assessments. Anesthesia Type Anesthesia Type: MAC Anesthesia Focused Assessment* Temperature: 97.7 F Pulse Rate: 49 Blood Pressure: 125/57 Respiratory Rate: 17 Pulse Ox: 100 Airway Assessment Mouth opens: >3 cm Mallampati Score: II Focused Labs Anesthesia Preop lab: CBC WBC 12.6 K/mm3 (4.4-11.0) H 10/28/24 05:06 10/28/24 RBC 3.67 M/mm3 (4.6-6.2) L 10/28/24 05:06 10/28/24 Hgb 11.7 g/dL (13.0-16.5) L 10/28/24 05:06 10/28/24 Hct 34.6 % (40-54) L 10/28/24 05:06 10/28/24 Plt Count 191 K/mm3 (150-450) 10/28/24 05:06 10/28/24 CHEMISTRY Potassium 4.6 mmol/L (3.3-5.1) 10/28/24 05:06 10/28/24 Sodium 137 mmol/L (133-145) 10/28/24 05:06 10/28/24 Magnesium 2.0 mg/dL (1.5-2.2) 10/27/24 17:01 10/27/24 Phosphorus 2.5 mg/dL (2.7-4.5) L 10/29/24 05:37 10/29/24 BUN 33 mg/dL (4-19) H 10/28/24 05:06 10/28/24 Creatinine 1.53 mg/dL (0.70-1.20) H 10/28/24 05:06 10/28/24 Glucose 131 mg/dL (70-99) H 10/28/24 05:06 10/28/24 POC Glucose 165 mg/dL (74-106) H 10/31/24 11:43 10/31/24 TSH 1.020 uIU/mL (0.300-4.200) 10/27/24 22:35 10/27/24 COAG PT 14.3 SECONDS (11.7-14.9) 10/28/24 05:06 10/28/24 Pre-Assessment Diagnosis/Proposed Procedure Planned Operative Procedure(s): COLONOSCOPY Anesthesia History 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 When Was Last Pacemaker Check QUESTION #4 FULL TEXT: You/Your Family Experience fever (hyperthermia) with Anesthesia Last Oral Intake Last Oral intake: Last Oral Intake NPO since 00:00 11/28/24 08:37 Meds taken in AM with sips of Yes 11/28/24 08:37 water? Meds patient instructed to take am of surgery PONV PONV - biofuels engineering manager: PONV - biofuels engineering manager Female No 11/22/24 15:00 HX of Motion Sickness No 11/22/24 15:00 HX of N/V After Surgery No 11/22/24 15:00 Non-Smoker No 11/22/24 15:00 Duration of Surgery greater No 11/22/24 15:00 than 60 minutes Number of Risk Factors PONV Score Height & Weight Height & Weight: Anesthesia: Height & Weight Height 5 ft 7 in 11/28/24 08:37 Weight: 111 kg 11/28/24 08:37 Body Mass Index (BMI) 38.3 11/28/24 08:37 Respiratory Assessment Respiratory Assessment - biofuels engineering manager: Respiratory Tract Infection Hx - biofuels engineering manager Hx Respiratory Tract Infection No 11/22/24 15:00 STOP Sleep Apnea STOP Sleep Apnea - biofuels engineering manager: STOP Sleep Apnea - biofuels engineering manager Hx Hypertension Yes 11/22/24 15:00 Hx Sleep Apnea No 11/22/24 15:00 CPAP BIPAP Do you snore loudly (louder Yes 11/22/24 15:00 than talking or can be heard Do you often feel tired/ No 11/22/24 15:00 fatigued/ sleepy during daytime? Has anyone observed you stop No 11/22/24 15:00 breathing during sleep? STOP Results Positive 11/22/24 15:00 QUESTION #5 FULL TEXT : Do you snore loudly (louder than talking or can be heard through closed doors)? 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 Specify any problems Hx of Preganancy in last 3 N/A 11/22/24 15:00 Months Nurse Filling Out Transfusion VLEHMAN 11/22/24 15:00 & Questions: Date: 11/22/24 11/22/24 15:00 Time: 15:12 11/22/24 15:00 Patient unable to answer at this time (ie. confused, unrespo /Reproduction History /Reproductive History - biofuels engineering manager: /Reproductive Hx- biofuels engineering manager Hx Now Gestational Age (in weeks): EDC: Hx Hx Para Hx Section SAB No 10/29/24 22:06 [facility] Medical History Wears glasses Insulin dependent diabetes mellitus Diabetes History of renal disease Low iron Fatty liver High cholesterol Injury of head and neck Dietary restriction History of hiatal hernia Non-smoker History of edema History of echocardiogram History of stress test Cardiology follow-up encounter Morbid obesity with BMI of 40.0-44.9, adult Leukocytosis Constipation Dry heaves Nausea Intractable abdominal pain Calculus of cystic duct Right upper quadrant abdominal pain Fatty liver Metabolic dysfunction-associated steatotic liver disease (MASLD) Chest pain Dilated aortic root Diastolic dysfunction Morbidly obese Venous insufficiency Abnormal EKG Atherosclerosis of [place] coronary artery of [place] heart without angina pectoris Left ventricular hypertrophy Hyperlipidemia GERD (gastroesophageal reflux disease) Osteopenia Anemia Arthritis CKD stage 3 secondary to diabetes Hypertension Type 2 diabetes mellitus Home Medications ?Medication ?Instructions ?Recorded ?Last Taken ?Type aspirin 81 mg capsule 81 mg PO DAILY 04/03/23 11/21/24 History calcium 600 mg (as 1 tab PO BID 04/03/23 11/27/24 History carbonate)-vitamin D3 5 mcg (200 unit) tablet (Calcium 600 + D(3)) folic acid 800 mcg tablet 800 mcg PO DAILY 04/03/23 11/27/24 History mecobalamin (vitamin B12) 1,000 1,000 mcg PO .every other day 04/03/23 11/27/24 History mcg chewable tablet insulin aspart U-100 100 unit/mL See Protocol subcut ACHS 09/05/23 Unknown History (3 mL) subcutaneous pen (Novolog FlexPen U-100 Insulin aspart) ferrous sulfate 325 mg (65 mg 325 mg PO DAILY #90 tabs 01/20/24 11/21/24 Rx iron) tablet,delayed release blood sugar diagnostic (OneTouch #100 ea 02/07/24 Unknown Rx Ultra Test strips) olmesartan 5 mg tablet 5 mg PO DAILY #90 tabs 04/24/24 11/28/24 Rx pen needle, diabetic 31 gauge x #300 ea 08/10/24 Unknown Rx 12/28 (BD Ultra-Fine Short Pen Needle) metoprolol tartrate 50 mg tablet 50 mg PO BID 90 days #180 tabs 08/16/24 11/28/24 Rx atorvastatin 20 mg tablet 20 mg PO QHS #90 tabs 10/18/24 11/27/24 Rx furosemide 40 mg tablet 40 mg PO DAILY #90 tabs 10/18/24 11/27/24 Rx allopurinol 100 mg tablet 100 mg PO BID #180 tabs 10/19/24 11/27/24 Rx amlodipine 10 mg tablet 10 mg PO DAILY #90 tabs 10/22/24 11/28/24 Rx insulin degludec 200 unit/mL (3 40 unit (0.2 mL) subcut QHS #9 mL 10/29/24 11/27/24 Rx mL) subcutaneous pen (Tresiba FlexTouch U-200 insulin) pantoprazole 40 mg tablet,delayed 40 mg PO QDAY #30 tabs 11/07/24 11/27/24 Rx release ascorbic acid (vitamin C) 500 mg 500 mg PO DAILY 11/22/24 11/27/24 History tablet (C-500) cholecalciferol (vitamin D3) 25 25 mcg PO DAILY 11/22/24 11/27/24 History mcg (1,000 unit) capsule (Vitamin D3) polyethylene glycol 3350 17 4 g PO QDAY 11/22/24 11/27/24 History gram/dose oral powder (Miralax) triamcinolone acetonide 0.1 % 1 applic topical BID PRN rash 11/22/24 11/27/24 History topical ointment Allergy/AdvReac Type Severity Reaction Status Date / Time latex Allergy Unknown Rash Verified 11/28/24 08:30 bacitracin (From Neosporin Allergy Rash Verified 11/28/24 08:30 ([id number])) neomycin (From Neosporin Allergy Rash Verified 11/28/24 08:30 ([id number])) nickel Allergy PT UNSURE Verified 11/28/24 08:30 OF REACTION polymyxin B (From Neosporin Allergy Rash Verified 11/28/24 08:30 ([id number])) Family History Grandmother Diabetes Father Heart disease Myocardial infarction 59 Cancer prostate and throat Hypertension Hyperlipidemia Mother Cancer lung Brother Aortic aneurysm Cancer prostate Surgical History History of cardiac catheterization Cataract extraction status History of foot surgery History of carpal tunnel release Amputation toe Hx of hernia repair H/O lithotripsy S/P cervical spinal fusion Hx of neck surgery Hx of cholecystectomy Social History household members: spouse current occupational 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
[2024-11-28] MEDS: Dextrose 10%-Water 250 ML 60 ML IV (08:58)
--- NOTE | 2024-11-28 09:29 | HP.PCM_ITS ---
HPI - General General Date of Admission: 11/28/24 Date of Service: 11/28/24 Chief Complaint: abdominal pain, Abnormal CT scan HPI Narrative 68y/o male presents for consultation with complaints of abdominal pain. He was seen by Internal Medicine on 08/27/2024 with complaints of constipation, abdominal bloating, gas, nausea, and pressure. His last EGD and colonoscopy were in [place], around [id number] and was told they were both normal. It was recommended he discontinue Omeprazole and start Pantoprazole as well as a daily fiber supplement. He reports due to worsening of symptom on pantoprazole, he discontinued and resumed Omeprazole. CT performed 09/13/2024 revealed gastric antrum wall thickening, bladder wall thickening, prostatomegaly and dense colonic stool burden. Labs completed 08/22/2024 revealed HGB 12.8 (stable), Creat 2.22 and negative celiac serologies. He reports a change in diet to promote weight loss over the past few months. His dietary modifications have likely contributed to his change in bowel habits with a decrease infrequency of stools. He started Metamucil one week ago, and we have discussed he can continue for now; however, if GES is revealing for gastroparesis he should discontinue. I have recommended he start Miralax 17g daily. Prior imaging revealed liver steatosis, I have order an ABD US and FibroScan. I have also scheduled him for an EGD and colonoscopy. Patient Instructions: Continue stool softener Miralax 17 grams once a day 8 ounces of water Continue Omeprazole 40mg daily Schedule GES Schedule ABD US FibroScan at [facility] - fatty liver, obesity, HTN, and DM Colon/EGD - GoLyt[facility] - If GES reveals gastroparesis, I recommend he discontinue fiber supplement GES: 10/22/2024 normal HAV Total Ab: 10/04/2024 negative HBVsA10/04/2024 negative HBVsAb: 10/04/2024 negative HBV Core Ab Total: 10/04/2024 negative HCV Ab: 10/04/2024 negative CBC: 10/28/2024 CMP: 10/28/2024 ALP 113, 10/04/2024 ALP 137 ELF: ABD US: 10/02/2024 revealed enlarged liver and fatty infiltration of the liver FibroScan: (fatty liver, obesity, HTN, and DM) 10/10/2024 (F0/S3) no fibrosis with severe liver fat WEIGHT: 249lbs today May 2024 - 277lbs LABS 10/28/2024 AST 18, ALT 11, ALP 113, PLT 191, WBC 12.6, HGB 11.7 10/04/2024 AST 13, ALT 19, ALP 137 ABD US 10/29/2024 The common duct measures 5 mm. No evidence of choledocholithiasis on this study. The possible cystic duct remnant, which may contain a small gallstone on the CT of 10/27/2024, is not demonstrated on this ultrasound examination. Nondiagnostic evaluation of the pancreas. Unremarkable right kidney. Coarse liver echotexture, which may be due to fatty metamorphosis. Limited evaluation of the liver parenchyma on this study. - denies any pain - denies any N/V - weight is stable - completed ATB - reports his bowels are moving - was having incomplete stools previously - now he is having formed, soft stools - he is typically having 1- BM daily - miralax as needed - stopped metamucil - denies any alcohol intake - denies any exercise - he is a non-smoker [facility] Medical History Wears glasses Insulin dependent diabetes mellitus Diabetes History of renal disease Low iron Fatty liver High cholesterol Injury of head and neck Dietary restriction History of hiatal hernia Non-smoker History of edema History of echocardiogram History of stress test Cardiology follow-up encounter Morbid obesity with BMI of 40.0-44.9, adult Leukocytosis Constipation Dry heaves Nausea Intractable abdominal pain Calculus of cystic duct Right upper quadrant abdominal pain Fatty liver Metabolic dysfunction-associated steatotic liver disease (MASLD) Chest pain Dilated aortic root Diastolic dysfunction Morbidly obese Venous insufficiency Abnormal EKG Atherosclerosis of [place] coronary artery of [place] heart without angina pectoris Left ventricular hypertrophy Hyperlipidemia GERD (gastroesophageal reflux disease) Osteopenia Anemia Arthritis CKD stage 3 secondary to diabetes Hypertension Type 2 diabetes mellitus Home Medications ?Medication ?Instructions ?Recorded ?Last Taken ?Type aspirin 81 mg capsule 81 mg PO DAILY 04/03/2305/09 History calcium 600 mg (as 1 tab PO BID 04/03/23 History carbonate)-vitamin D3 5 mcg (200 unit) tablet (Calcium 600 + D(3)) folic acid 800 mcg tablet 800 mcg PO DAILY 04/03/23 History mecobalamin (vitamin B12) 1,000 1,000 mcg PO .every ot her day 04/03/23 11/27/24 History mcg chewable tablet insulin aspart U-100 100 unit/mL See Protocol subcut A [facility] 09/05/23 Unknown History (3 mL) subcutaneous pen (Novolog FlexPen U-100 Insulin aspart) ferrous sulfate 325 mg (65 mg 325 mg PO DAILY #90 tabs 01/20/24 11/21/24 Rx iron) tablet,delayed release blood sugar diagnostic (OneTouch #100 ea 02/07/24 Unkn own Rx Ultra Test strips) olmesartan 5 mg tablet 5 mg PO DAILY #90 tabs 04/2411/28/24 Rx pen needle, diabetic 31 gauge x #300 ea 08/10/24 Unkno wn Rx 12/28 (BD Ultra-Fine Short Pen Needle) metoprolol tartrate 50 mg tablet 50 mg PO BID 90 days #180 tabs 08/16/24 11/28/24 Rx atorvastatin 20 mg tablet 20 mg PO QHS #90 tabs 11/27/24 Rx furosemide 40 mg tablet 40 mg PO DAILY #90 tabs 03/0 02/0611/27/24 Rx allopurinol 100 mg tablet 100 mg PO BID #180 tabs 03/0 03/0811/27/24 Rx amlodipine 10 mg tablet 10 mg PO DAILY #90 tabs 0311/28/24 Rx insulin degludec 200 unit/mL (3 40 unit (0.2 mL) subcu t QHS #9 mL 10/29/24 11/27/24 Rx mL) subcutaneous pen (Tresiba FlexTouch U-200 insulin) pantoprazole 40 mg tablet,delayed 40 mg PO QDAY #30 ta bs 11/07/24 11/27/24 Rx release ascorbic acid (vitamin C) 500 mg 500 mg PO DAILY 11/2211/27/24 History tablet (C-500) cholecalciferol (vitamin D3) 25 25 mcg PO DAILY 11/27/24 History mcg (1,000 unit) capsule (Vitamin D3) polyethylene glycol 3350 17 4 g PO QDAY 11/22/2411/27 History gram/dose oral powder (Miralax) triamcinolone acetonide 0.1 % 1 applic topical BID PRN rash 11/22/24 11/27/24 History topical ointment Allergy/AdvReac Type Severity Reaction Status Date / Time latex Allergy Unknown Rash Verified 11/28/24 08:30 bacitracin (From Neosporin Allergy Rash Verified 11/28/24 08:30 ([id number])) neomycin (From Neosporin Allergy Rash Verified 11/28/24 08:30 ([id number])) nickel Allergy PT UNSURE Verified 11/28/24 08:30 OF REACTION polymyxin B (From Neosporin Allergy Rash Verified 11/28/24 08:30 ([id number])) Family History Grandmother Diabetes Father Heart disease Myocardial infarction 59 Cancer prostate and throat Hypertension Hyperlipidemia Mother Cancer lung Brother Aortic aneurysm Cancer prostate Surgical History History of cardiac catheterization Cataract extraction status History of foot surgery History of carpal tunnel release Amputation toe Hx of hernia repair H/O lithotripsy S/P cervical spinal fusion Hx of neck surgery Hx of cholecystectomy Social History household members: spouse 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 occupational 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 Smoking Status: Never smoker Electronic Cigarette Use: not used alcohol intake: never substance use type: does not use what type of physical activity do you participate in: none seatbelt use: always do you feel safe at home: Yes ROS Constitutional Constitutional: Denies fatigue, fever(s), poor appetite, weight gain or weight loss Gastrointestinal Gastrointestinal: Denies belching, bloating, change in bowel habits, change in stool character, chewing difficulty, coffee ground emesis, constipation, cramping, diarrhea, dyspepsia, dysphagia, early satiety, excessive flatus, fecal incontinence, heartburn, hematemesis, hematochezia, hemorrhoids, loose stools, melena, nausea, odynophagia, rectal bleeding, tenesmus, vomiting or weight changes Vital Signs Vital Signs Vital Signs: 11/28/24 08:37 11/28/24 08:37 11/28/24 08:41 Temperature 97.7 F L 97.7 F L Temperature Source Temporal Pulse Rate 49 L 49 L Respiratory Rate 17 17 Respiratory Pattern Normal Blood Pressure 125/57 H 125/57 H Blood Pressure Mean 79 Blood Pressure Source Monitor Blood Pressure Position Semi-Fowlers Blood Pressure Location Left Arm Pulse Ox 100 100 Oxygen Delivery Method Room Air Weight Weight: 244 lb 11.41 oz Body Mass Index (BMI) 38.3 Physical Exam GI GI Narrative: Abdomen- soft, benign Assessment & Plan Assessment/Plan (1) Change in bowel habit: (2) Nausea: (3) LUQ pain: PLAN: Assessment and Plan Assessment and Plan (1) Choledocholithiasis: Status: Acute (2) Metabolic dysfunction-associated steatotic liver disease (MASLD): Status: Acute Plan 68-year-old male presents for follow-up post admission. He was last seen in the office on 09/25/2024 with complaints of abdominal pain. He presented to the emergency department on 10/27/2024 with acute onset RUQ pain with CT concerning for small cystic duct remnant with gallstone. He underwent ERCP on 10/30/2024 with removal of cystic duct stones with sphincterotomy and biliary stent placement. He is doing well post ERCP and denies any ongoing abdominal pain. Will plan for ERCP with stent removal in 6 weeks. FibroScan performed 10/10/2024 revealed (F0/S3), no fibrosis with severe liver fat. We have reviewed the ACG guidelines for 10 best practices with fatty liver disease. I have encouraged dietary and lifestyle modifications to promote continued weight loss. He has had a weight loss of 30 pounds in the past 6 months. He will complete HAV and HBV vaccine series. Will plan to repeat FibroScan in 1 year. Note: [employer] speech recognition command center officer software was used to create portions of this document. Sound-alike and misspelled words, as well as other command center officer errors may be contained in the documentation. Patient Instructions: Proceed with colonoscopy next week as scheduled - GoLYTELY ERCP in 6-8 weeks Follow-up in 6 months Repeat FibroScan in 1 year Will recheck HBV and HAV Ab in 1 year Complete HAV and HBV vaccine series MASLD literature provided Resume Metamucil daily Continue Miralax as needed Metabolic dysfunction-associated steatotic liver disease (MASLD) is a spectrum of disease that ranges from a more benign condition of nonalcoholic fatty liver (NAFL) to nonalcoholic steatohepatitis (MASH), which is at the more severe end of the spectrum. In NAFL, hepatic steatosis is present without evidence of inflammation, whereas in MASH, hepatic steatosis is associated with lobular inflammation and apoptosis that can lead to fibrosis and cirrhosis. Lifestyle modifications are the cornerstone of treatment for fatty liver disease. These include optimizing care for diabetes, high cholesterol and obesity. - Weight loss is the primary therapy for most patients with MASLD. We recommend weight loss for all patients with MASLD who are overweight (body mass index [BMI] =25 kg/m2) or have obesity (BMI =30 kg/m2) because fat accumulation in the liver leads to inflammation which leads to irreversible scarring. Unchecked liver inflammation and scarring can increase the risk of developing liver cancer and cardiovascular complications, such as heart attack and stroke. Weight loss can lead to improvement in liver biochemical tests, liver histology, serum insulin levels, and quality of life. Ideally, aim to lose between 5-10% of total body weight (1-2 lb per week) over the next 6 months. This can be achieved by adhering to a very low carbohydrate diet (60 g/day), high in lean protein and vegetables (variant of the Mediterranean diet). Reducing portion sizes can also make weight loss easier. [id number] intensity cardiovascular and/or resistance exercise (30 min, 3-4 days/week) paired with dietary modifications is helpful, as long as such an exercise regimen is permitted by your biochemistry technician or primary care provider. Dietary counseling and/or a physician managed weight loss program is often extremely helpful in attaining this goal. - Small studies have shown that up to 3 cups of black coffee (no sugar, no cream) can be beneficial for liver health in patients with fatty liver. However, this should be avoided if coffee is a known trigger for gastrointestinal symptoms. - There is no known safe amount of alcohol use in fatty liver disease. Avoidance is recommended. - Smoking should also be avoided as it has been independently associated with the development of fatty liver disease and predisposes to insulin resistance and diabetes. Plan Details Follow Up: 6 Months
--- NOTE | 2024-11-28 09:30 | EGD_PTH ---
PATIENT: DAVID CARDONA LOC: [facility] U#:[id number] AGE/SX: 68/M ROOM: RE11/28/[address]: Dr. Benitez Tan DO : 1955 BED: DIS: 11/28/2024 SPEC #: [id number] RECD: 11/28/24 14:16 STATUS: LIMA RANDI #: [id number] ANALI: 11/28/24 09:[address]: Benitez Tan DEPT: SURGICAL PATHOLOGY RECD BY: Norman Carey ENTERED: 11/28/24 14:17 SP TYPE: EGD BIOPSY MYRA DR: Dr. More Padilla MD Tissues: A - Gastric mucous membrane B - Sigmoid colon biopsy Procedures: Immunohistochemical Stains Surgery Specimen Level IV HEADER OPERATION: EGD with biopsy, colonoscopy with biopsy PRE-OP DIAGNOSIS: Choledocholithiasis, metabolic dysfunction-associated steatotic liver disease TISSUE SUBMITTED: A- Gastric body biopsy, B- Sigmoid colon biopsy MICROSCOPIC DIAGNOSIS A. Stomach, body, biopsy: * Oxyntic mucosa with features of reactive gastropathy. * IHC negative for H pylori organisms. B. Sigmoid colon, biopsy: * No specific pathologic change. * The histologic features of microscopic colitis are not identified. MICROSCOPIC DESCRIPTION Slides are reviewed. All matched controls reacted appropriately. These tests were developed and their performance characteristics determined by [facility]. They may not have been cleared or approved by the U.S. Food and Drug Administration. The FDA has determined that such clearance or approval is not necessary.? The above immunohistochemical/dualISH?markers are ordered and reviewed by the Pathologist. GROSS DESCRIPTION A. Received in formalin in a container labeled with the patient's name, date of , and gastric body biopsy for H. pylori and path are multiple reece-pink fragments of mucosal tissue measuring 1.3 x 0.7 x 0.3 cm in aggregate. Submitted in toto in A1. B. Received in formalin in a container labeled with the patient's name, date of , and sigmoid colon biopsy are multiple reece-pink fragments of mucosal tissue measuring 1.2 x 0.8 x 0.2 cm in aggregate. Submitted in toto in B1. [facility] 11/28/2024 CPT:[id number]
[2024-11-28 09:39] LABS: Bedside Glucose 63 mg/dL (74-106)
[2024-11-28 09:56] LABS: Bedside Glucose 74 mg/dL (74-106)
--- NOTE | 2024-11-28 10:48 | OP.EGD_ITS ---
Patient Name: Gilmar Ayers Procedure Date: 11/28/2024 10:08 AM Date of : 1955 Age: 68 Procedure: Upper GI endoscopy Indications: Epigastric abdominal pain Providers: Benitez Tan DO Referring MD: More Padilla Md Medicines: Monitored Anesthesia Care Patient Profile: This is a 68 year old male. Refer to note in patient chart for documentation of history and physical. Patient has symptoms of acute epigastric abdominal pain. Complications: No immediate complications. Procedure: Pre-Anesthesia Assessment: - Prior to the procedure, a History and Physical was performed, and patient medications and allergies were reviewed. The patient is competent. The risks and benefits of the procedure and the sedation options and risks were discussed with the patient. All questions were answered and informed consent was obtained. Patient identification and proposed procedure were verified by the physician in the pre-procedure area. Mental Status Examination: alert and oriented. Airway Examination: normal oropharyngeal airway and neck mobility. Respiratory Examination: clear to auscultation. CV Examination: normal. Prophylactic Antibiotics: The patient does not require prophylactic antibiotics. Prior Anticoagulants: The patient has taken no anticoagulant or antiplatelet agents except for NSAID medication. ASA Grade Assessment: II - A patient with mild systemic disease. After reviewing the risks and benefits, the patient was deemed in satisfactory condition to undergo the procedure. The anesthesia plan was to use monitored anesthesia care (MAC). Immediately prior to administration of medications, the patient was re-assessed for adequacy to receive sedatives. The heart rate, respiratory rate, oxygen saturations, blood pressure, adequacy of pulmonary ventilation, and response to care were monitored throughout the procedure. The physical status of the patient was re-assessed after the procedure. After obtaining informed consent, the endoscope was passed under direct vision. Throughout the procedure, the patient's blood pressure, pulse, and oxygen saturations were monitored continuously. The pediatric colonoscope was introduced through the mouth, and advanced to the second part of duodenum. The upper GI endoscopy was accomplished without difficulty. The patient tolerated the procedure well. Scope In: 10:17:11 AM Scope Out: 10:20:11 AM Total Procedure Duration Time 0 hours 3 minutes 0 seconds Findings: The examined esophagus was normal. Patchy mildly erythematous mucosa without bleeding was found in the cardia and in the gastric body. Biopsies were taken with a cold forceps for histology. Verification of patient identification for the specimen was done. Estimated blood loss was minimal. Biopsies were taken with a cold forceps for Helicobacter pylori testing. Verification of patient identification for the specimen was done. Estimated blood loss was minimal. The examined duodenum was normal. Impression: - Normal esophagus. - Erythematous mucosa in the cardia and gastric body. Biopsied. - Normal examined duodenum. Recommendation: - Await pathology results. - Continue present medications. Procedure Code(s): --- Professional --- 92887, Esophagogastroduodenoscopy, flexible, transoral; with biopsy, single or multiple CPT copyright 2021 [employer]. All rights reserved. The codes documented in this report are preliminary and upon expediter clerk review may be revised to meet current compliance requirements. Benitez Tan DO 11/28/2024 10:48:01 AM This report has been signed electronically. Number of Addenda: 0 Note Initiated On: 11/28/2024 10:08 AM
--- NOTE | 2024-11-28 10:48 | OP.CCLET_ITS ---
11/28/2024 More Padilla Md Re : Upper GI endoscopy procedure for Gilmar Ayers Dear Randy This procedure was performed on Thursday, November 28, 2024. My impressions and recommendations are as follows: Impressions : - Normal esophagus. - Erythematous mucosa in the cardia and gastric body. Biopsied. - Normal examined duodenum. Recommendations : - Await pathology results. - Continue present medications. My findings are described in the full procedure note, which is enclosed. If I can be of further assistance, please feel free to contact me at . Sincerely, Benitez Tan, 11/28/2024 10:48:01 AM This report has been signed electronically.
--- NOTE | 2024-11-28 10:48 | PCM.POST.ANE ---
Anesthesia: Postop Eval I Current Vital Signs Temperature: 97.2 F Pulse Rate: 62 Blood Pressure: 87/40 Respiratory Rate: 16 Pulse Ox: 96 Oxygen Delivery Method: Room Air Assessment Airway patent: Yes Spontaneous unlabored respirations: Yes Mental status: Awake and Calm nausea: No Vomiting: No Anesthesia Complication: No Fluid Hydration Crystalloid volume administer (ml): 60 Total IV fluid infused: 60 Progress Note Anesthesia document: Postop Eval 1 completed: Yes
--- NOTE | 2024-11-28 10:50 | OP.CCLET_ITS ---
11/28/2024 More Padilla Md Re : Colonoscopy procedure for Gilmar Ayers Dear Randy This procedure was performed on Thursday, November 28, 2024. My impressions and recommendations are as follows: Impressions : - Diverticulosis in the recto-sigmoid colon, in the sigmoid colon and in the descending colon. - Congested mucosa in the recto-sigmoid colon and in the sigmoid colon. Biopsied. - The examination was otherwise normal. Recommendations : - Discharge patient to home. - Resume previous diet. - Continue present medications. - Await pathology results. - Repeat colonoscopy in 5 years for surveillance. My findings are described in the full procedure note, which is enclosed. If I can be of further assistance, please feel free to contact me at . Sincerely, Benitez Tan, 11/28/2024 10:50:08 AM This report has been signed electronically.
--- NOTE | 2024-11-28 10:50 | OP.COLON_ITS ---
Patient Name: Gilmar Ayers Procedure Date: 11/28/2024 10:20 AM Date of : 1955 Age: 68 Procedure: Colonoscopy Indications: Screening for colorectal malignant neoplasm Providers: Benitez Tan DO Referring MD: More Padilla Md Medicines: Monitored Anesthesia Care Patient Profile: This is a 68 year old male. Refer to note in patient chart for documentation of history and physical. Patient has symptoms of acute epigastric abdominal pain. Last Colonoscopy: 5 years ago. Complications: No immediate complications. Procedure: Pre-Anesthesia Assessment: - Prior to the procedure, a History and Physical was performed, and patient medications and allergies were reviewed. The patient is competent. The risks and benefits of the procedure and the sedation options and risks were discussed with the patient. All questions were answered and informed consent was obtained. Patient identification and proposed procedure were verified by the physician in the pre-procedure area. Mental Status Examination: alert and oriented. Airway Examination: normal oropharyngeal airway and neck mobility. Respiratory Examination: clear to auscultation. CV Examination: normal. Prophylactic Antibiotics: The patient does not require prophylactic antibiotics. Prior Anticoagulants: The patient has taken no anticoagulant or antiplatelet agents except for NSAID medication. ASA Grade Assessment: II - A patient with mild systemic disease. After reviewing the risks and benefits, the patient was deemed in satisfactory condition to undergo the procedure. The anesthesia plan was to use monitored anesthesia care (MAC). Immediately prior to administration of medications, the patient was re-assessed for adequacy to receive sedatives. The heart rate, respiratory rate, oxygen saturations, blood pressure, adequacy of pulmonary ventilation, and response to care were monitored throughout the procedure. The physical status of the patient was re-assessed after the procedure. After I obtained informed consent, the scope was passed under direct vision. Throughout the procedure, the patient's blood pressure, pulse, and oxygen saturations were monitored continuously. The pediatric colonoscope was introduced through the anus and advanced to the terminal ileum. The colonoscopy was performed without difficulty. The patient tolerated the procedure well. The quality of the bowel preparation was adequate. The terminal ileum, ileocecal valve, appendiceal orifice, and rectum were photographed. Scope In: 10:21:46 AM Scope Withdrawal Time 0 hours 9 minutes 8 seconds Scope Out: 10:36:46 AM Total Procedure Duration Time 0 hours 15 minutes 0 seconds Findings: The perianal and digital rectal examinations were normal. A few small-mouthed diverticula were found in the recto-sigmoid colon, sigmoid colon and descending colon. An area of mildly congested mucosa was found in the recto-sigmoid colon and in the sigmoid colon. Biopsies were taken with a cold forceps for histology. Verification of patient identification for the specimen was done. Estimated blood loss was minimal. The exam was otherwise without abnormality. Impression: - Diverticulosis in the recto-sigmoid colon, in the sigmoid colon and in the descending colon. - Congested mucosa in the recto-sigmoid colon and in the sigmoid colon. Biopsied. - The examination was otherwise normal. Recommendation: - Discharge patient to home. - Resume previous diet. - Continue present medications. - Await pathology results. - Repeat colonoscopy in 5 years for surveillance. Procedure Code(s): --- Professional --- 38988, Colonoscopy, flexible; with biopsy, single or multiple CPT copyright 2021 [employer]. All rights reserved. The codes documented in this report are preliminary and upon refractory grinder operator review may be revised to meet current compliance requirements. Benitez Tan DO 11/28/2024 10:50:08 AM This report has been signed electronically. Number of Addenda: 0 Note Initiated On: 11/28/2024 10:20 AM
[2024-11-28 11:08] LABS: Bedside Glucose 74 mg/dL (74-106)
--- NOTE | 2024-11-28 11:09 | PCM.POSTANE2 ---
Anesthesia Postop Eval I Sum Postop Eval Completion status Anesthesia document: Postop Eval 1 completed: Yes Anesthesia Postop Eval I Summary Anesthesia Postop Eval I Summary: Anesthesia Postop Eval I: Assessment Summary Airway patent Yes 11/28/24 10:49 [email or web address] Spontaneous unlabored Yes 11/28/24 10:49 [email or web address] respirations Mental status Awake,Calm 11/28/24 10:49 [email or web address] nausea No 11/28/24 10:49 [email or web address] Vomiting No 11/28/24 10:49 [email or web address] Anesthesia Postop Eval I: Fluid Summary Crystalloid volume administer 60 11/28/24 10:49 [email or web address] (ml) Colloids volume administered ( ml) Blood Product volume administered (ml) Total IV fluid infused 60 11/28/24 10:49 [email or web address] Anesthesia Postop Eval I: Summary Notes Anesthesia Complication No 11/28/24 10:49 [email or web address] Anesthesia Complication Comment: Post-operative progress note Anesthesia: Postop Eval II Evaluation Mental status: Awake Pain Level: 0 nausea: No Vomiting: No
== END 2024-11-28 11:35 | disposition home or self-care (01) ==
LOC: EN 08:12 → AC 08:13
PROVIDERS: PCP Internal Medicine; Referring Provider Internal Medicine; Visit Provider Internal Medicine Gastroenterology
PROC: 0DJD8ZZ Inspection of Lower Intestinal Tract, Via Natural or Artificial Opening Endoscopic (ICD-10-PCS; CPT 45378; principal; 2024-11-28 09:25)
DX: R10.12 Left upper quadrant pain (principal); E11.22 Type 2 diabetes mellitus with diabetic chronic kidney disease; Z79.4 Long term (current) use of insulin; N18.30 Chronic kidney disease, stage 3 unspecified; I25.10 Atherosclerotic heart disease of native coronary artery without angina pectoris; K80.50 Calculus of bile duct without cholangitis or cholecystitis without obstruction; K57.30 Diverticulosis of large intestine without perforation or abscess without bleeding; Z79.82 Long term (current) use of aspirin; E78.00 Pure hypercholesterolemia, unspecified; I12.9 Hypertensive chronic kidney disease with stage 1 through stage 4 chronic kidney disease, or unspecified chronic kidney disease; K21.9 Gastro-esophageal reflux disease without esophagitis; Z98.49 Cataract extraction status, unspecified eye; Z90.49 Acquired absence of other specified parts of digestive tract; R11.0 Nausea; R19.4 Change in bowel habit; K76.9 Liver disease, unspecified; K31.89 Other diseases of stomach and duodenum; K63.89 Other specified diseases of intestine
CPT/HCPCS: 45380; 43239; 82962; 88305; 88342; A4216; J2405

== ENCOUNTER 2024-12-12 11:50 | Day surgery (SDC) | payer MEDICARE, SELFPAY ==
--- NOTE | 2024-12-10 13:04 | PAT.ANESEVAL ---
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 When Was Last Pacemaker Check QUESTION #4 FULL TEXT: You/Your Family Experience fever (hyperthermia) with Anesthesia Last Oral Intake Last Oral intake: Last Oral Intake NPO since Meds taken in AM with sips of water? 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 Female No 12/10/24 12:40 HX of Motion Sickness No 12/10/24 12:40 HX of N/V After Surgery No 12/10/24 12:40 Non-Smoker Yes 12/10/24 12:40 Duration of Surgery greater No 12/10/24 12:40 than 60 minutes Number of Risk Factors 1 12/10/24 12:40 PONV Score Low Risk 12/10/24 12:40 Height & Weight Height & Weight: Anesthesia: Height & Weight Height 5 ft 7 in 11/22/24 09:07 Respiratory Assessment Respiratory Assessment - window installation subcontractor: Respiratory Tract Infection Hx - window installation subcontractor Hx Respiratory Tract Infection No 12/10/24 12:40 STOP Sleep Apnea STOP Sleep Apnea - window installation subcontractor: STOP Sleep Apnea - window installation subcontractor Hx Hypertension Yes 12/10/24 12:40 Hx Sleep Apnea No 12/10/24 12:40 CPAP BIPAP Do you snore loudly (louder No 12/10/24 12:40 than talking or can be heard Do you often feel tired/ No 12/10/24 12:40 fatigued/ sleepy during daytime? Has anyone observed you stop No 12/10/24 12:40 breathing during sleep? STOP Results Negative 12/10/24 12:40 QUESTION #5 FULL TEXT : Do you snore loudly (louder than talking or can be heard through closed doors)? 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 Specify any problems Hx of Preganancy in last 3 N/A 12/10/24 12:40 Months Nurse Filling Out Transfusion [place] 12/10/24 12:40 & Questions: Date: 12/10/24 12/10/24 12:40 Time: 12:42 12/10/24 12:40 Patient unable to answer at this time (ie. 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: /Reproductive Hx- window installation subcontractor Hx Now No 12/10/24 12:40 Gestational Age (in weeks): EDC: Hx Hx Para Hx Section SAB No 10/29/24 22:06 [facility] Medical History (Updated 12/10/24 @ 12:47 by Madhavi Boyce) Wears glasses Insulin dependent diabetes mellitus Diabetes History of renal disease Low iron Fatty liver High cholesterol Injury of head and neck Dietary restriction History of hiatal hernia Non-smoker History of edema History of echocardiogram History of stress test Cardiology follow-up encounter Morbid obesity with BMI of 40.0-44.9, adult Leukocytosis Constipation Dry heaves Nausea Intractable abdominal pain Calculus of cystic duct Right upper quadrant abdominal pain Fatty liver Metabolic dysfunction-associated steatotic liver disease (MASLD) Chest pain Dilated aortic root Diastolic dysfunction Morbidly obese Venous insufficiency Abnormal EKG Atherosclerosis of [place] coronary artery of cab[place] heart without angina pectoris Left ventricular hypertrophy Hyperlipidemia GERD (gastroesophageal reflux disease) Osteopenia Anemia Arthritis CKD stage 3 secondary to diabetes Hypertension Type 2 diabetes mellitus Home Medications ?Medication ?Instructions ?Recorded ?Last Taken ?Type aspirin 81 mg capsule 81 mg PO DAILY 04/03/23 12/05/24 History calcium 600 mg (as 1 tab PO BID 04/03/23 11/27/24 History carbonate)-vitamin D3 5 mcg (200 unit) tablet (Calcium 600 + D(3)) folic acid 800 mcg tablet 800 mcg PO DAILY 04/03/23 11/27/24 History mecobalamin (vitamin B12) 1,000 1,000 mcg PO .every other day 04/03/23 11/27/24 History mcg chewable tablet insulin aspart U-100 100 unit/mL See Protocol subcut ACHS 09/05/23 Unknown History (3 mL) subcutaneous pen (Novolog FlexPen U-100 Insulin aspart) ferrous sulfate 325 mg (65 mg 325 mg PO DAILY #90 tabs 01/20/24 12/05/24 Rx iron) tablet,delayed release olmesartan 5 mg tablet 5 mg PO DAILY #90 tabs 04/24/24 11/28/24 Rx pen needle, diabetic 31 gauge x #300 ea 08/10/24 Unknown Rx 12/28 (BD Ultra-Fine Short Pen Needle) metoprolol tartrate 50 mg tablet 50 mg PO BID 90 days #180 tabs 08/16/24 11/28/24 Rx atorvastatin 20 mg tablet 20 mg PO QHS #90 tabs 10/18/24 11/27/24 Rx furosemide 40 mg tablet 40 mg PO DAILY #90 tabs 10/18/24 11/27/24 Rx allopurinol 100 mg tablet 100 mg PO BID #180 tabs 10/19/24 11/27/24 Rx amlodipine 10 mg tablet 10 mg PO DAILY #90 tabs 10/22/24 11/28/24 Rx insulin degludec 200 unit/mL (3 40 unit (0.2 mL) subcut QHS #9 mL 10/29/24 11/27/24 Rx mL) subcutaneous pen (Tresiba FlexTouch U-200 insulin) pantoprazole 40 mg tablet,delayed 40 mg PO QDAY #30 tabs 11/07/24 11/27/24 Rx release ascorbic acid (vitamin C) 500 mg 500 mg PO DAILY 11/22/24 11/27/24 History tablet (C-500) cholecalciferol (vitamin D3) 25 25 mcg PO DAILY 11/22/24 11/27/24 History mcg (1,000 unit) capsule (Vitamin D3) polyethylene glycol 3350 17 4 g PO QDAY 11/22/24 11/27/24 History gram/dose oral powder (Miralax) triamcinolone acetonide 0.1 % 1 applic topical BID PRN rash 11/22/24 11/27/24 History topical ointment blood sugar diagnostic (OneTouch #100 ea 12/06/24 Unknown Rx Ultra Test strips) Allergy/AdvReac Type Severity Reaction Status Date / Time latex Allergy Unknown Rash Verified 11/28/24 08:30 bacitracin (From Neosporin Allergy Rash Verified 11/28/24 08:30 ([id number])) neomycin (From Neosporin Allergy Rash Verified 11/28/24 08:30 ([id number])) nickel Allergy PT UNSURE Verified 11/28/24 08:30 OF REACTION polymyxin B (From Neosporin Allergy Rash Verified 11/28/24 08:30 ([id number])) Family History Grandmother Diabetes Father Heart disease Myocardial infarction 59 Cancer prostate and throat Hypertension Hyperlipidemia Mother Cancer lung Brother Aortic aneurysm Cancer prostate Surgical History History of cardiac catheterization Cataract extraction status History of foot surgery History of carpal tunnel release Amputation toe Hx of hernia repair H/O lithotripsy S/P cervical spinal fusion Hx of neck surgery Hx of cholecystectomy Social History household members: spouse current occupational 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 Sinus bradycardia. Low voltage in limb leads. Poor R wave progression. Consider old anterior infarct. Stress test pertinent findings: 10/18/2024. Small fixed apical perfusion defect. Could denote previous nontransmural infarct. No reversible ischemia. EF 58%. Recommendation Anesthesia Recommendation Anesthesia recommendation: OPTIMIZED for anesthesia
[2024-12-12] VITALS (8 sets, daily range): BP systolic 103–131; BP diastolic 56–66; PULSE 50–62; RESP 16; TEMP 36.4–36.8; O2SAT 92–99; BMI 39.0
--- NOTE | 2024-12-12 12:00 | RAD_ITS ---
EXAM: ERCP CLINICAL HISTORY: Abdominal pain TECHNIQUE: 80 seconds of fluoroscopy of the abdomen was utilized in the operating room during an ERCP and 9 images are submitted for interpretation. FINDINGS: Balloon sphincterotomy was performed. RAD/ERCP Biliary/Pancreas IMPRESSION: Fluoroscopy during ERCP. Reading Location: [id number]
--- NOTE | 2024-12-12 12:07 | PCM.PRE.AN2 ---
ASA Classification* ASA Classification ASA Classification: 3 Assessment & Plan Anesthesia* Anesthesia Assessment Anesthesia Assessment: Discussed sedation and/or anesthesia options, risks, benefits, and alternatives with patient/parents/legal guardian/POA. Questions invited. The patient/parents/legal guardian/POA seems to understand and agrees to proceed with anesthesia plan. Reviewed the physical assessment, medical history, allergy history and patient home medications list prior to surgery/procedure/anesthetic and documented any changes. Performed airway and anesthesia risk assessments. Anesthesia Type Anesthesia Type: MAC Anesthesia Focused Assessment* Airway Assessment Mouth opens: >3 cm Mallampati Score: II Focused Labs Anesthesia Preop lab: CBC WBC 12.6 K/mm3 (4.4-11.0) H 10/28/24 05:06 10/28/24 RBC 3.67 M/mm3 (4.6-6.2) L 10/28/24 05:06 10/28/24 Hgb 11.7 g/dL (13.0-16.5) L 10/28/24 05:06 10/28/24 Hct 34.6 % (40-54) L 10/28/24 05:06 10/28/24 Plt Count 191 K/mm3 (150-450) 10/28/24 05:06 10/28/24 CHEMISTRY Potassium 4.6 mmol/L (3.3-5.1) 10/28/24 05:06 10/28/24 Sodium 137 mmol/L (133-145) 10/28/24 05:06 10/28/24 Magnesium 2.0 mg/dL (1.5-2.2) 10/27/24 17:01 10/27/24 Phosphorus 2.5 mg/dL (2.7-4.5) L 10/29/24 05:37 10/29/24 BUN 33 mg/dL (4-19) H 10/28/24 05:06 10/28/24 Creatinine 1.53 mg/dL (0.70-1.20) H 10/28/24 05:06 10/28/24 Glucose 131 mg/dL (70-99) H 10/28/24 05:06 10/28/24 POC Glucose 74 mg/dL (74-106) 11/28/24 10:50 11/28/24 TSH 1.020 uIU/mL (0.300-4.200) 10/27/24 22:35 10/27/24 COAG PT 14.3 SECONDS (11.7-14.9) 10/28/24 05:06 10/28/24 Pre-Assessment Diagnosis/Proposed Procedure Planned Operative Procedure(s): ERCP STENT REMOVAL Anesthesia History 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 When Was Last Pacemaker Check QUESTION #4 FULL TEXT: You/Your Family Experience fever (hyperthermia) with Anesthesia Last Oral Intake Last Oral intake: Last Oral Intake NPO since Meds taken in AM with sips of water? Meds patient instructed to take am of surgery PONV PONV - commercial teller: PONV - commercial teller Female No 12/10/24 12:40 HX of Motion Sickness No 12/10/24 12:40 HX of N/V After Surgery No 12/10/24 12:40 Non-Smoker Yes 12/10/24 12:40 Duration of Surgery greater No 12/10/24 12:40 than 60 minutes Number of Risk Factors 1 12/10/24 12:40 PONV Score Low Risk 12/10/24 12:40 Height & Weight Height & Weight: Anesthesia: Height & Weight Height 5 ft 7 in 11/28/24 08:37 Respiratory Assessment Respiratory Assessment - commercial teller: Respiratory Tract Infection Hx - commercial teller Hx Respiratory Tract Infection No 12/10/24 12:40 STOP Sleep Apnea STOP Sleep Apnea - commercial teller: STOP Sleep Apnea - commercial teller Hx Hypertension Yes 12/10/24 12:40 Hx Sleep Apnea No 12/10/24 12:40 CPAP BIPAP Do you snore loudly (louder No 12/10/24 12:40 than talking or can be heard Do you often feel tired/ No 12/10/24 12:40 fatigued/ sleepy during daytime? Has anyone observed you stop No 12/10/24 12:40 breathing during sleep? STOP Results Negative 12/10/24 12:40 QUESTION #5 FULL TEXT : Do you snore loudly (louder than talking or can be heard through closed doors)? 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 Specify any problems Hx of Preganancy in last 3 N/A 12/10/24 12:40 Months Nurse Filling Out Transfusion [facility] 12/10/24 12:40 & Questions: Date: 12/10/24 12/10/24 12:40 Time: 12:42 12/10/24 12:40 Patient unable to answer at this time (ie. confused, unrespo /Reproduction History /Reproductive History - commercial teller: /Reproductive Hx- commercial teller Hx Now No 12/10/24 12:40 Gestational Age (in weeks): EDC: Hx Hx Para Hx Section SAB No 10/29/24 22:06 [facility] Medical History Wears glasses Insulin dependent diabetes mellitus Diabetes History of renal disease Low iron Fatty liver High cholesterol Injury of head and neck Dietary restriction History of hiatal hernia Non-smoker History of edema History of echocardiogram History of stress test Cardiology follow-up encounter Morbid obesity with BMI of 40.0-44.9, adult Leukocytosis Constipation Dry heaves Nausea Intractable abdominal pain Calculus of cystic duct Right upper quadrant abdominal pain Fatty liver Metabolic dysfunction-associated steatotic liver disease (MASLD) Chest pain Dilated aortic root Diastolic dysfunction Morbidly obese Venous insufficiency Abnormal EKG Atherosclerosis of [place] coronary artery of [place] heart without angina pectoris Left ventricular hypertrophy Hyperlipidemia GERD (gastroesophageal reflux disease) Osteopenia Anemia Arthritis CKD stage 3 secondary to diabetes Hypertension Type 2 diabetes mellitus Home Medications ?Medication ?Instructions ?Recorded ?Last Taken ?Type aspirin 81 mg capsule 81 mg PO DAILY 04/03/23 12/05/24 History calcium 600 mg (as 1 tab PO BID 04/03/23 11/27/24 History carbonate)-vitamin D3 5 mcg (200 unit) tablet (Calcium 600 + D(3)) folic acid 800 mcg tablet 800 mcg PO DAILY 04/03/23 11/27/24 History mecobalamin (vitamin B12) 1,000 1,000 mcg PO .every other day 04/03/23 11/27/24 History mcg chewable tablet insulin aspart U-100 100 unit/mL See Protocol subcut ACHS 09/05/23 Unknown History (3 mL) subcutaneous pen (Novolog FlexPen U-100 Insulin aspart) ferrous sulfate 325 mg (65 mg 325 mg PO DAILY #90 tabs 01/20/24 12/05/24 Rx iron) tablet,delayed release olmesartan 5 mg tablet 5 mg PO DAILY #90 tabs 04/24/24 11/28/24 Rx pen needle, diabetic 31 gauge x #300 ea 08/10/24 Unknown Rx 12/28 (BD Ultra-Fine Short Pen Needle) metoprolol tartrate 50 mg tablet 50 mg PO BID 90 days #180 tabs 08/16/24 11/28/24 Rx atorvastatin 20 mg tablet 20 mg PO QHS #90 tabs 10/18/24 11/27/24 Rx furosemide 40 mg tablet 40 mg PO DAILY #90 tabs 10/18/24 11/27/24 Rx allopurinol 100 mg tablet 100 mg PO BID #180 tabs 10/19/24 11/27/24 Rx amlodipine 10 mg tablet 10 mg PO DAILY #90 tabs 10/22/24 11/28/24 Rx insulin degludec 200 unit/mL (3 40 unit (0.2 mL) subcut QHS #9 mL 10/29/24 11/27/24 Rx mL) subcutaneous pen (Tresiba FlexTouch U-200 insulin) pantoprazole 40 mg tablet,delayed 40 mg PO QDAY #30 tabs 11/07/24 11/27/24 Rx release ascorbic acid (vitamin C) 500 mg 500 mg PO DAILY 11/22/24 11/27/24 History tablet (C-500) cholecalciferol (vitamin D3) 25 25 mcg PO DAILY 11/22/24 11/27/24 History mcg (1,000 unit) capsule (Vitamin D3) polyethylene glycol 3350 17 4 g PO QDAY 11/22/24 11/27/24 History gram/dose oral powder (Miralax) triamcinolone acetonide 0.1 % 1 applic topical BID PRN rash 11/22/24 11/27/24 History topical ointment blood sugar diagnostic (OneTouch #100 ea 12/06/24 Unknown Rx Ultra Test strips) Allergy/AdvReac Type Severity Reaction Status Date / Time latex Allergy Unknown Rash Verified 11/28/24 08:30 bacitracin (From Neosporin Allergy Rash Verified 11/28/24 08:30 ([id number])) neomycin (From Neosporin Allergy Rash Verified 11/28/24 08:30 ([id number])) nickel Allergy PT UNSURE Verified 11/28/24 08:30 OF REACTION polymyxin B (From Neosporin Allergy Rash Verified 11/28/24 08:30 ([id number])) Family History Grandmother Diabetes Father Heart disease Myocardial infarction 59 Cancer prostate and throat Hypertension Hyperlipidemia Mother Cancer lung Brother Aortic aneurysm Cancer prostate Surgical History History of cardiac catheterization Cataract extraction status History of foot surgery History of carpal tunnel release Amputation toe Hx of hernia repair H/O lithotripsy S/P cervical spinal fusion Hx of neck surgery Hx of cholecystectomy Social History household members: spouse current occupational 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
[2024-12-12] MEDS: Lactated Ringers 1,000 ML 15 ML IV (12:55)
--- NOTE | 2024-12-12 13:00 | FLU_PTH ---
PATIENT: DAVID CARDONA LOC: EN U#:[id number] AGE/SX: 68/M ROOM: RE12/12/[address]: Dr. Benitez Tan DO : 1955 BED: DIS: 12/12/2024 SPEC #: [id number] RECD: 12/12/24 14:45 STATUS: LIMA RANDI #: [id number] ANALI: 12/12/24 13:[address]: Benitez Tan DEPT: CYTOLOGY RECD BY: Norman Carey ENTERED: 12/13/24 10:07 SP TYPE: Fluid OTHR DR: Dr. More Padilla MD Tissues: A - Biliary tract, NOS Procedures: Special Stain Group II Surgery Specimen Level IV Cytospin Fluid HEADER OPERATION: ERCP, stent removal PRE-OP DIAGNOSIS: Choledocholithiasis TISSUE SUBMITTED: A- Biliary stent fluid for cytology DIAGNOSIS CYTOLOGY A. Biliary stent and fluid, cytospin and cell block: * No malignant cells identified. * Essentially acellular specimen. CYTOLOGY STUDY Slides are reviewed. CYTOLOGY GROSS A. Received is a 12 cm blue stent with 0.2 ml of yellow material labeled with the patient's name and and designated per the requisition as Biliary stent. Submitted for cytology/cytospin and cell block preparation. Mr 12/13/2024 CPT: 77765
--- NOTE | 2024-12-12 13:50 | PCM.HP.STD ---
[facility] - General General Date of Admission: 12/12/24 Date of Service: 12/12/24 HPI Narrative DAVID CARDONA, is a 68 M who [id number] male presents for consultation with complaints of abdominal pain. He was seen by Internal Medicine on 08/27/2024 with complaints of constipation, abdominal bloating, gas, nausea, and pressure. His last EGD and colonoscopy were in [place], around [id number] and was told they were both normal. It was recommended he discontinue Omeprazole and start Pantoprazole as well as a daily fiber supplement. He reports due to worsening of symptom on pantoprazole, he discontinued and resumed Omeprazole. CT performed 09/13/2024 revealed gastric antrum wall thickening, bladder wall thickening, prostatomegaly and dense colonic stool burden. Labs completed 08/22/2024 revealed HGB 12.8 (stable), Creat 2.22 and negative celiac serologies. He reports a change in diet to promote weight loss over the past few months. His dietary modifications have likely contributed to his change in bowel habits with a decrease infrequency of stools. He started Metamucil one week ago, and we have discussed he can continue for now; however, if GES is revealing for gastroparesis he should discontinue. I have recommended he start Miralax 17g daily. Prior imaging revealed liver steatosis, I have order an ABD US and FibroScan. I have also scheduled him for an EGD and colonoscopy. Patient Instructions: Continue stool softener Miralax 17 grams once a day 8 ounces of water Continue Omeprazole 40mg daily Schedule GES Schedule ABD US FibroScan at [facility] - fatty liver, obesity, HTN, and DM Colon/EGD - GoLytely - If GES reveals gastroparesis, I recommend he discontinue fiber supplement GES: 10/22/2024 normal HAV Total Ab: 10/04/2024 negative HBVsA10/04/2024 negative HBVsAb: 10/04/2024 negative HBV Core Ab Total: 10/04/2024 negative HCV Ab: 10/04/2024 negative CBC: 10/28/2024 CMP: 10/28/2024 ALP 113, 10/04/2024 ALP 137 ELF: ABD US: 10/02/2024 revealed enlarged liver and fatty infiltration of the liver FibroScan: (fatty liver, obesity, HTN, and DM) 10/10/2024 (F0/S3) no fibrosis with severe liver fat WEIGHT: 249lbs today May 2024 - 277lbs LABS 10/28/2024 AST 18, ALT 11, ALP 113, PLT 191, WBC 12.6, HGB 11.7 10/04/2024 AST 13, ALT 19, ALP 137 ABD US 10/29/2024 The common duct measures 5 mm. No evidence of choledocholithiasis on this study. The possible cystic duct remnant, which may contain a small gallstone on the CT of 10/27/2024, is not demonstrated on this ultrasound examination. Nondiagnostic evaluation of the pancreas. Unremarkable right kidney. Coarse liver echotexture, which may be due to fatty metamorphosis. Limited evaluation of the liver parenchyma on this study. - denies any pain - denies any N/V - weight is stable - completed ATB - reports his bowels are moving - was having incomplete stools previously - now he is having formed, soft stools - he is typically having 1- BM daily - miralax as needed - stopped metamucil - denies any alcohol intake - denies any exercise - he is a non-smoker [facility] Medical History Wears glasses Insulin dependent diabetes mellitus Diabetes History of renal disease Low iron Fatty liver High cholesterol Injury of head and neck Dietary restriction History of hiatal hernia Non-smoker History of edema History of echocardiogram History of stress test Cardiology follow-up encounter Morbid obesity with BMI of 40.0-44.9, adult Leukocytosis Constipation Dry heaves Nausea Intractable abdominal pain Calculus of cystic duct Right upper quadrant abdominal pain Fatty liver Metabolic dysfunction-associated steatotic liver disease (MASLD) Chest pain Dilated aortic root Diastolic dysfunction Morbidly obese Venous insufficiency Abnormal EKG Atherosclerosis of [place] coronary artery of [place] heart without angina pectoris Left ventricular hypertrophy Hyperlipidemia GERD (gastroesophageal reflux disease) Osteopenia Anemia Arthritis CKD stage 3 secondary to diabetes Hypertension Type 2 diabetes mellitus Home Medications ?Medication ?Instructions ?Recorded ?Last Taken ?Type aspirin 81 mg capsule 81 mg PO DAILY 04/03/23 12/05/24 History calcium 600 mg (as 1 tab PO BID 04/03/23 11/27/24 History carbonate)-vitamin D3 5 mcg (200 unit) tablet (Calcium 600 + D(3)) folic acid 800 mcg tablet 800 mcg PO DAILY 04/03/23 11/27/24 History mecobalamin (vitamin B12) 1,000 1,000 mcg PO .every other day 04/03/23 11/27/24 History mcg chewable tablet insulin aspart U-100 100 unit/mL See Protocol subcut ACHS 09/05/23 Unknown History (3 mL) subcutaneous pen (Novolog FlexPen U-100 Insulin aspart) ferrous sulfate 325 mg (65 mg 325 mg PO DAILY #90 tabs 01/20/24 12/05/24 Rx iron) tablet,delayed release olmesartan 5 mg tablet 5 mg PO DAILY #90 tabs 04/24/24 12/12/24 Rx pen needle, diabetic 31 gauge x #300 ea 08/10/24 Unknown Rx 12/28 (BD Ultra-Fine Short Pen Needle) metoprolol tartrate 50 mg tablet 50 mg PO BID 90 days #180 tabs 08/16/24 12/12/24 Rx atorvastatin 20 mg tablet 20 mg PO QHS #90 tabs 10/18/24 11/27/24 Rx furosemide 40 mg tablet 40 mg PO DAILY #90 tabs 10/18/24 11/27/24 Rx allopurinol 100 mg tablet 100 mg PO BID #180 tabs 10/19/24 11/27/24 Rx amlodipine 10 mg tablet 10 mg PO DAILY #90 tabs 10/22/24 11/28/24 Rx insulin degludec 200 unit/mL (3 40 unit (0.2 mL) subcut QHS #9 mL 10/29/24 11/27/24 Rx mL) subcutaneous pen (Tresiba FlexTouch U-200 insulin) pantoprazole 40 mg tablet,delayed 40 mg PO QDAY #30 tabs 11/07/24 12/12/24 Rx release ascorbic acid (vitamin C) 500 mg 500 mg PO DAILY 11/22/24 11/27/24 History tablet (C-500) cholecalciferol (vitamin D3) 25 25 mcg PO DAILY 11/22/24 11/27/24 History mcg (1,000 unit) capsule (Vitamin D3) polyethylene glycol 3350 17 4 g PO QDAY 11/22/24 11/27/24 History gram/dose oral powder (Miralax) triamcinolone acetonide 0.1 % 1 applic topical BID PRN rash 11/22/24 11/27/24 History topical ointment blood sugar diagnostic (OneTouch #100 ea 12/06/24 Unknown Rx Ultra Test strips) Allergy/AdvReac Type Severity Reaction Status Date / Time latex Allergy Unknown Rash Verified 11/28/24 08:30 bacitracin (From Neosporin Allergy Rash Verified 11/28/24 08:30 ([id number])) neomycin (From Neosporin Allergy Rash Verified 11/28/24 08:30 ([id number])) nickel Allergy PT UNSURE Verified 11/28/24 08:30 OF REACTION polymyxin B (From Neosporin Allergy Rash Verified 11/28/24 08:30 ([id number])) Family History Grandmother Diabetes Father Heart disease Myocardial infarction 59 Cancer prostate and throat Hypertension Hyperlipidemia Mother Cancer lung Brother Aortic aneurysm Cancer prostate Surgical History History of cardiac catheterization Cataract extraction status History of foot surgery History of carpal tunnel release Amputation toe Hx of hernia repair H/O lithotripsy S/P cervical spinal fusion Hx of neck surgery Hx of cholecystectomy Social History household members: spouse 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 occupational 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 Smoking Status: Never smoker Electronic Cigarette Use: not used alcohol intake: never substance use type: does not use what type of physical activity do you participate in: none seatbelt use: always do you feel safe at home: Yes ROS Constitutional Constitutional: Denies fatigue, fever(s), poor appetite, weight gain or weight loss Gastrointestinal Gastrointestinal: Denies belching, bloating, change in bowel habits, change in stool character, chewing difficulty, coffee ground emesis, constipation, cramping, diarrhea, dyspepsia, dysphagia, early satiety, excessive flatus, fecal incontinence, heartburn, hematemesis, hematochezia, hemorrhoids, loose stools, melena, nausea, odynophagia, rectal bleeding, tenesmus, vomiting or weight changes Vital Signs Vital Signs Vital Signs: 12/12/24 12:46 12/12/24 12:46 Temperature 97.5 F L Temperature Source Temporal Pulse Rate 50 L Respiratory Rate 16 Respiratory Pattern Normal Blood Pressure 131/66 H Blood Pressure Mean 87 Blood Pressure Source Monitor Blood Pressure Position Semi-Fowlers Blood Pressure Location Right Arm Pulse Ox 99 Oxygen Delivery Method Room Air Weight Weight: 249 lb 5.485 oz Body Mass Index (BMI) 39.0 Physical Exam GI GI Narrative: Abdomen- soft, benign Assessment & Plan Assessment/Plan (1) Choledocholithiasis: PLAN: He will undergo ERCP with stent removal or exchange. He was explained alternatives, risk, benefits, nonstandard bleeding, infection, sepsis, perforation, and procedure to be pancreatitis. He will have an ASA of 3 for the procedure.
--- NOTE | 2024-12-12 14:52 | OP.ERCP_ITS ---
Patient Name: Gilmar Ayers Procedure Date: 12/12/2024 1:58 PM Date of : 1955 Age: 68 Procedure: ERCP Indications: Bile duct stone(s), Biliary stent removal Providers: Benitez Tan DO Medicines: Monitored Anesthesia Care Patient Profile: This is a 68 year old male. Refer to note in patient chart for documentation of history and physical. Patient has symptoms. Complications: No immediate complications. Procedure: Pre-Anesthesia Assessment: - Prior to the procedure, a History and Physical was performed, and patient medications and allergies were reviewed. The patient is competent. The risks and benefits of the procedure and the sedation options and risks were discussed with the patient. All questions were answered and informed consent was obtained. Patient identification and proposed procedure were verified by the physician in the pre-procedure area. Mental Status Examination: alert and oriented. Airway Examination: normal oropharyngeal airway and neck mobility. Respiratory Examination: clear to auscultation. CV Examination: normal. Prophylactic Antibiotics: The patient does not require prophylactic antibiotics. Prior Anticoagulants: The patient has taken no anticoagulant or antiplatelet agents except for NSAID medication. ASA Grade Assessment: II - A patient with mild systemic disease. After reviewing the risks and benefits, the patient was deemed in satisfactory condition to undergo the procedure. The anesthesia plan was to use monitored anesthesia care (MAC). Immediately prior to administration of medications, the patient was re-assessed for adequacy to receive sedatives. The heart rate, respiratory rate, oxygen saturations, blood pressure, adequacy of pulmonary ventilation, and response to care were monitored throughout the procedure. The physical status of the patient was re-assessed after the procedure. After obtaining informed consent, the scope was passed under direct vision. Throughout the procedure, the patient's blood pressure, pulse, and oxygen saturations were monitored continuously. The Duodenoscope was introduced through the mouth, and advanced to the duodenum and used to inject contrast into the bile duct. The ERCP was accomplished without difficulty. The patient tolerated the procedure well. Scope In: 2:20:59 PM Scope Out: 2:34:31 PM Total Procedure Duration Time 0 hours 13 minutes 32 seconds Findings: The canal boat operator film was normal. The esophagus was successfully intubated under direct vision. The scope was advanced to a normal major papilla in the descending duodenum without detailed examination of the pharynx, larynx and associated structures, and upper GI tract. The upper GI tract was grossly normal. A long 0.025 inch Jagwire was passed into the biliary tree. The short-nosed traction sphincterotome was passed over the guidewire and the bile duct was then deeply cannulated. Contrast was injected. I personally interpreted the bile duct images. There was brisk flow of contrast through the ducts. Image quality was adequate. Contrast extended to the entire biliary tree. Opacification of the entire biliary tree except for the gallbladder was successful. The maximum diameter of the ducts was 10 mm. The lower third of the main bile duct contained one stone, which was 6 mm in diameter. The upper third of the main bile duct was diffusely dilated, acquired. The largest diameter was 11mm. A cholecystectomy had been performed. A 5 mm biliary sphincterotomy was made with a traction (standard) sphincterotome using ERBE electrocautery. There was no post-sphincterotomy bleeding. The biliary tree was swept with a 12 mm balloon starting at the cystic duct, left intrahepatic duct(s) and left main hepatic duct. All stones were removed. One stent was removed from the biliary tree using a snare and sent for cytology. The stent was found to be partially occluded via the water column test. Impression: - The upper third of the main bile duct was dilated, acquired. - The patient has had a cholecystectomy. - Choledocholithiasis was found. Complete removal was accomplished by biliary sphincterotomy and balloon extraction. - A biliary sphincterotomy was performed. - The biliary tree was swept. - One stent was removed from the biliary tree. Procedure Code(s): --- Professional --- 83226, Endoscopic retrograde cholangiopancreatography (ERCP); with removal of foreign body(s) or stent(s) from biliary/pancreatic duct(s) 85566, Endoscopic retrograde cholangiopancreatography (ERCP); with removal of calculi/debris from biliary/pancreatic duct(s) 40213, Endoscopic retrograde cholangiopancreatography (ERCP); with sphincterotomy/papillotomy 71755, 26, Endoscopic catheterization of the biliary ductal system, radiological supervision and interpretation CPT copyright 2021 [employer]. All rights reserved. The codes documented in this report are preliminary and upon production welder review may be revised to meet current compliance requirements. Benitez Tan DO 12/12/2024 2:51:34 PM This report has been signed electronically. Number of Addenda: 0 Note Initiated On: 12/12/2024 1:58 PM
--- NOTE | 2024-12-12 14:52 | OP.CCLET_ITS ---
12/12/2024 More Padilla Md Re : ERCP procedure for Gilmar Ayers Dear Randy This procedure was performed on Thursday, December 12, 2024. My impressions and recommendations are as follows: Impressions : - The upper third of the main bile duct was dilated, acquired. - The patient has had a cholecystectomy. - Choledocholithiasis was found. Complete removal was accomplished by biliary sphincterotomy and balloon extraction. - A biliary sphincterotomy was performed. - The biliary tree was swept. - One stent was removed from the biliary tree. Recommendations : My findings are described in the full procedure note, which is enclosed. If I can be of further assistance, please feel free to contact me at . Sincerely, Benitez Tan, 12/12/2024 2:51:34 PM This report has been signed electronically.
--- NOTE | 2024-12-12 14:53 | PCM.POST.ANE ---
Anesthesia: Postop Eval I Current Vital Signs Temperature: 98.2 F Pulse Rate: 62 Blood Pressure: 105/56 Respiratory Rate: 16 Pulse Ox: 97 Oxygen Delivery Method: Room Air Assessment Airway patent: Yes Spontaneous unlabored respirations: Yes Mental status: Awake and Calm nausea: No Vomiting: No Anesthesia Complication: No Fluid Hydration Crystalloid volume administer (ml): 600 Total IV fluid infused: 600 Progress Note Anesthesia document: Postop Eval 1 completed: Yes
--- NOTE | 2024-12-12 15:15 | PCM.POSTANE2 ---
Anesthesia Postop Eval I Sum Postop Eval Completion status Anesthesia document: Postop Eval 1 completed: Yes Anesthesia Postop Eval I Summary Anesthesia Postop Eval I Summary: Anesthesia Postop Eval I: Assessment Summary Airway patent Yes 12/12/24 14:53 [email or web address] Spontaneous unlabored Yes 12/12/24 14:53 [email or web address] respirations Mental status Awake,Calm 12/12/24 14:53 [email or web address] nausea No 12/12/24 14:53 [email or web address] Vomiting No 12/12/24 14:53 [email or web address] Anesthesia Postop Eval I: Fluid Summary Crystalloid volume administer 600 12/12/24 14:53 [email or web address] (ml) Colloids volume administered ( ml) Blood Product volume administered (ml) Total IV fluid infused 600 12/12/24 14:53 [email or web address] Anesthesia Postop Eval I: Summary Notes Anesthesia Complication No 12/12/24 14:53 [email or web address] Anesthesia Complication Comment: Post-operative progress note Anesthesia: Postop Eval II Evaluation Mental status: Awake Pain Level: 0 nausea: No Vomiting: No
[2024-12-13 15:20] LABS: Bedside Glucose 66 mg/dL (74-106)
[2024-12-13 15:20] LABS: Bedside Glucose 70 mg/dL (74-106)
== END 2024-12-12 15:29 | disposition home or self-care (01) ==
LOC: EN 11:51 → AC 11:52
PROVIDERS: PCP Internal Medicine; Visit Provider Internal Medicine Gastroenterology
PROC: (CPT 43260; principal; 2024-12-12 12:40)
DX: K80.50 Calculus of bile duct without cholangitis or cholecystitis without obstruction (principal); Z79.4 Long term (current) use of insulin; E11.22 Type 2 diabetes mellitus with diabetic chronic kidney disease; N18.30 Chronic kidney disease, stage 3 unspecified; K83.8 Other specified diseases of biliary tract; E78.00 Pure hypercholesterolemia, unspecified; Z79.82 Long term (current) use of aspirin; I25.10 Atherosclerotic heart disease of native coronary artery without angina pectoris; Z79.899 Other long term (current) drug therapy; K21.9 Gastro-esophageal reflux disease without esophagitis; Z98.49 Cataract extraction status, unspecified eye; Z90.49 Acquired absence of other specified parts of digestive tract; I12.9 Hypertensive chronic kidney disease with stage 1 through stage 4 chronic kidney disease, or unspecified chronic kidney disease
CPT/HCPCS: 43262; 43275; 43264; 74330; 76000; 82962; 88108; 88305; 88313; J2405

== ENCOUNTER → 2024-12-20 | Outpatient (CLI) | payer MEDICARE, SELFPAY ==
--- NOTE | 2024-12-20 15:05 | RAD_ITS ---
PROCEDURE: ABDOMEN SINGLE VIEW 12/20/2024 REASON FOR EXAM: HX ERCP TECHNIQUE: Three-view abdomen. COMPARISON: CT abdomen and pelvis 10/27/2024 FINDINGS: Bowel gas: Nonobstructive bowel gas pattern. Calcifications: Cholecystectomy clips. Bones: Degenerative changes of the lumbar spine. Other: Imaged lung bases are clear. RAD/Abdomen Single View IMPRESSION: Nonobstructive bowel gas pattern. Reading Location: [facility]
[2024-12-20 16:50] LABS: Absolute Lymphocyte Count 2.23 X10^3/uL (0.83-4.51); Absolute Neutrophil Count 9.5 X10^3/uL (2.0-7.7); Basophil# 0.06 X10^3/uL; Basophil% 0.5 % (0-1); Eosinophil# 0.18 X10^3/uL; Eosinophils% 1.4 % (0-5); Hematocrit 34.4 % (40-54); Hemoglobin 11.3 g/dL (13.0-16.5); Lymphocyte # 2.23 X10^3/ul (0.83-4.51); Mean Corp Hgb Conc 32.8 g/dL (32-36); Mean Corpuscular Hgb 31.7 pg (27.0-32.0); Mean Corpuscular Volume 96.4 fL (80-94); Mean Platelet Vol. 11.4 fl (6.2-12.0); Monocyte# 1.06 X10^3/uL; Monocyte% 8.1 % (0-10); NRBC Flagged by Analyzer 0 % (0-5); Neutrophil # 9.49 X10^3/uL (2.7-7.7); Neutrophil % 72.2 % (47-70); Platelet Count 219 K/mm3 (150-450); RBC Distribution Width CV 13.2 % (11.6-14.6); RBC Distribution Width SD 47.4 fl (35.1-43.9); Red Blood Count 3.57 M/mm3 (4.6-6.2); White Blood Count 13.1 K/mm3 (4.4-11.0)
[2024-12-20 17:36] LABS: ALB/GLOB Ratio 1.1 RATIO (0.9-2.4); AST(SGOT) 13 U/L (<=37); Alanine Aminotransfer ALT/SGPT 10 U/L (<=46); Albumin, Serum 3.9 g/dL (3.4-4.8); Alkaline Phosphatase 111 U/L (40-129); Anion Gap 13 (5-15); BUN 45 mg/dL (4-19); BUN/Creat Ratio 21.5 RATIO (10-20); Bilirubin, Direct 0.35 mg/dL (0.00-0.30); Calcium,Total 9.3 mg/dL (7.6-11.0); Carbon Dioxide 21.6 mmol/L (21.0-32.0); Chloride 102 mmol/L (98-108); Creatinine, Serum 2.09 mg/dL (0.70-1.20); EST Glomerular Filtration Rate 34 (>60); Globulin 3.6 g/dL (2.2-4.2); Glucose 98 mg/dL (70-99); Potassium 4.9 mmol/L (3.3-5.1); Protein, Total 7.5 g/dL (5.9-8.4); Sodium Level 136 mmol/L (133-145); Total Bilirubin 0.73 mg/dL (0.00-1.30)
[2024-12-20 17:54] LABS: Erythrocyte Sedimentation Rate 23 mm/hr (0-20)
[2024-12-20 18:41] LABS: Amylase 39 U/L (28-100); Lipase 12 U/L (13-75)
[2024-12-22 04:07] LABS: GGTP 22 IU/L (0-65)
== END | disposition home or self-care (01) ==
PROVIDERS: Nurse Practitioner Acute Care; PCP Internal Medicine; Referring Provider Internal Medicine Gastroenterology; Visit Provider Internal Medicine Gastroenterology
DX: K80.50 Calculus of bile duct without cholangitis or cholecystitis without obstruction (principal); R10.12 Left upper quadrant pain; R11.0 Nausea; R19.4 Change in bowel habit
CPT/HCPCS: 74018; 80053; 80076; 82150; 82977; 83690; 85025; 86140

== ENCOUNTER → 2024-12-26 | Outpatient (CLI) | payer MEDICARE, SELFPAY ==
[2024-12-26 11:06] LABS: Absolute Lymphocyte Count 1.84 X10^3/uL (0.83-4.51); Absolute Neutrophil Count 14.2 X10^3/uL (2.0-7.7); Basophil# 0.09 X10^3/uL; Basophil% 0.5 % (0-1); Eosinophil# 0.16 X10^3/uL; Eosinophils% 0.9 % (0-5); Hematocrit 32.7 % (40-54); Hemoglobin 11.1 g/dL (13.0-16.5); Lymphocyte # 1.84 X10^3/ul (0.83-4.51); Lymphocyte % 10.6 % (19-41); Mean Corp Hgb Conc 33.9 g/dL (32-36); Mean Corpuscular Hgb 32.4 pg (27.0-32.0); Mean Corpuscular Volume 95.3 fL (80-94); Mean Platelet Vol. 9.9 fl (6.2-12.0); Monocyte# 0.92 X10^3/uL; Monocyte% 5.3 % (0-10); NRBC Flagged by Analyzer 0 % (0-5); Neutrophil # 14.21 X10^3/uL (2.7-7.7); Neutrophil % 82.1 % (47-70); Platelet Count 298 K/mm3 (150-450); RBC Distribution Width CV 13.2 % (11.6-14.6); RBC Distribution Width SD 46.4 fl (35.1-43.9); Red Blood Count 3.43 M/mm3 (4.6-6.2); White Blood Count 17.3 K/mm3 (4.4-11.0)
[2024-12-26 11:08] LABS: Erythrocyte Sedimentation Rate 26 mm/hr (0-20)
[2024-12-26 12:33] LABS: AST(SGOT) 15 U/L (<=37); Alanine Aminotransfer ALT/SGPT 7 U/L (<=46); Albumin, Serum 3.8 g/dL (3.4-4.8); Alkaline Phosphatase 117 U/L (40-129); Anion Gap 12 (5-15); BUN 48 mg/dL (4-19); BUN/Creat Ratio 23.2 RATIO (10-20); Bilirubin, Direct 0.23 mg/dL (0.00-0.30); Calcium,Total 9.2 mg/dL (7.6-11.0); Carbon Dioxide 20.6 mmol/L (21.0-32.0); Chloride 104 mmol/L (98-108); Creatinine, Serum 2.09 mg/dL (0.70-1.20); EST Glomerular Filtration Rate 34 (>60); Globulin 3.8 g/dL (2.2-4.2); Glucose 119 mg/dL (70-99); Lipase 13 U/L (13-75); Potassium 4.9 mmol/L (3.3-5.1); Protein, Total 7.6 g/dL (5.9-8.4); Sodium Level 136 mmol/L (133-145); Total Bilirubin 0.45 mg/dL (0.00-1.30)
== END | disposition home or self-care (01) ==
LOC: LAB 10:43
PROVIDERS: PCP Internal Medicine; Referring Provider Nurse Practitioner Acute Care; Visit Provider Nurse Practitioner Acute Care
DX: R11.0 Nausea (principal); R10.13 Epigastric pain; R10.11 Right upper quadrant pain; R79.82 Elevated C-reactive protein (CRP)
CPT/HCPCS: 36415; 80048; 80076; 83690; 85025; 85652; 86140

== ENCOUNTER 2024-12-27 16:12 | Emergency (ER) | payer MEDICARE, SELFPAY ==
[2024-12-27 16:14] VITALS: BP 105/65; PULSE 63; RESP 16; TEMP 36.2; O2SAT 97; BMI 38.8
--- NOTE | 2024-12-27 18:10 | PCA ---
Patient was brought to room 17 and this registered public health nurse verified name and date of and it was the wrong patient from the waiting room. When informed, this registered public health nurse apologized and patient stated my doctor said I had to come to the ER right away! This registered public health nurse informed the patient of the acuity the ER is based off of and acknowledged his frustration. When registered public health nurse went to escort patient back to waiting room, patient states while waving his finger and moving closer to this registered public health nurse, the nurse said I need and IV RIGHT NOW! Patient was escorted back to the waiting room and in timely manor was brought back to room 18.
[2024-12-27 18:13] VITALS: BP 110/51; PULSE 60; RESP 14; O2SAT 97
--- NOTE | 2024-12-27 18:37 | ED.VIS.GI ---
HPI HPI - GI History of Present Illness Chief Complaint: Abd Pain Narrative Narrative: 68-year-old male presents for transfer to [facility] for interventional radiology for gallbladder fossa abscess. He relates history that he had remote cholecystectomy in [place] in 2021. He was seen in the emergency department at this facility approximately 8 weeks ago where he had a calcification or stone in his common bile duct even though he had prior cholecystectomy. He relates history that he had ERCP performed and they remove the stone. However he required a stent. Approximately 1 week ago he had the stent removed by gastroenterology, Dr. Tan. Then, a day and a half later he started having pain in his abdomen. He denies any fevers or chills, no nausea or vomiting. He relates history that he had blood work drawn, and he had elevated white count and elevated CRP as well. They could not do the ultrasound on the same day, so he had a performed today. He was told by gastroenterology that he needed to come to the emergency department for antibiotics because of an abscess that had developed/fluid collection. [facility] Medical History Wears glasses Insulin dependent diabetes mellitus Diabetes History of renal disease Low iron Fatty liver High cholesterol Injury of head and neck Dietary restriction History of hiatal hernia Non-smoker History of edema History of echocardiogram History of stress test Cardiology follow-up encounter Morbid obesity with BMI of 40.0-44.9, adult Leukocytosis Constipation Dry heaves Nausea Intractable abdominal pain Calculus of cystic duct Right upper quadrant abdominal pain Fatty liver Metabolic dysfunction-associated steatotic liver disease (MASLD) Chest pain Dilated aortic root Diastolic dysfunction Morbidly obese Venous insufficiency Abnormal EKG Atherosclerosis of [place] coronary artery of [place] heart without angina pectoris Left ventricular hypertrophy Hyperlipidemia GERD (gastroesophageal reflux disease) Osteopenia Anemia Arthritis CKD stage 3 secondary to diabetes Hypertension Type 2 diabetes mellitus Home Medications ?Medication ?Instructions ?Recorded ?Last Taken ?Type aspirin 81 mg capsule 81 mg PO DAILY 04/03/23 12/05/24 History calcium 600 mg (as 1 tab PO BID 04/03/23 11/27/24 History carbonate)-vitamin D3 5 mcg (200 unit) tablet (Calcium 600 + D(3)) folic acid 800 mcg tablet 800 mcg PO DAILY 04/03/23 11/27/24 History mecobalamin (vitamin B12) 1,000 1,000 mcg PO .every other day 04/03/23 11/27/24 History mcg chewable tablet insulin aspart U-100 100 unit/mL See Protocol subcut ACHS 09/05/23 Unknown History (3 mL) subcutaneous pen (Novolog FlexPen U-100 Insulin aspart) ferrous sulfate 325 mg (65 mg 325 mg PO DAILY #90 tabs 01/20/24 12/05/24 Rx iron) tablet,delayed release olmesartan 5 mg tablet 5 mg PO DAILY #90 tabs 04/24/24 12/12/24 Rx pen needle, diabetic 31 gauge x #300 ea 08/10/24 Unknown Rx 12/28 (BD Ultra-Fine Short Pen Needle) metoprolol tartrate 50 mg tablet 50 mg PO BID 90 days #180 tabs 08/16/24 12/12/24 Rx atorvastatin 20 mg tablet 20 mg PO QHS #90 tabs 10/18/24 11/27/24 Rx furosemide 40 mg tablet 40 mg PO DAILY #90 tabs 10/18/24 11/27/24 Rx allopurinol 100 mg tablet 100 mg PO BID #180 tabs 10/19/24 11/27/24 Rx amlodipine 10 mg tablet 10 mg PO DAILY #90 tabs 10/22/24 11/28/24 Rx insulin degludec 200 unit/mL (3 40 unit (0.2 mL) subcut QHS #9 mL 10/29/24 11/27/24 Rx mL) subcutaneous pen (Tresiba FlexTouch U-200 insulin) pantoprazole 40 mg tablet,delayed 40 mg PO QDAY #30 tabs 11/07/24 12/12/24 Rx release ascorbic acid (vitamin C) 500 mg 500 mg PO DAILY 11/22/24 11/27/24 History tablet (C-500) cholecalciferol (vitamin D3) 25 25 mcg PO DAILY 11/22/24 11/27/24 History mcg (1,000 unit) capsule (Vitamin D3) polyethylene glycol 3350 17 4 g PO QDAY 11/22/24 11/27/24 History gram/dose oral powder (Miralax) triamcinolone acetonide 0.1 % 1 applic topical BID PRN rash 11/22/24 11/27/24 History topical ointment blood sugar diagnostic (OneTouch #100 ea 04/24/25 Unknown Rx Ultra Test strips) Allergy/AdvReac Type Severity Reaction Status Date / Time latex Allergy Unknown Rash Verified 11/28/24 08:30 bacitracin (From Neosporin Allergy Rash Verified 11/28/24 08:30 ([id number])) neomycin (From Neosporin Allergy Rash Verified 11/28/24 08:30 ([id number])) nickel Allergy PT UNSURE Verified 11/28/24 08:30 OF REACTION polymyxin B (From Neosporin Allergy Rash Verified 11/28/24 08:30 ([id number])) Family History Grandmother Diabetes Father Heart disease Myocardial infarction 59 Cancer prostate and throat Hypertension Hyperlipidemia Mother Cancer lung Brother Aortic aneurysm Cancer prostate Surgical History History of cardiac catheterization Cataract extraction status History of foot surgery History of carpal tunnel release Amputation toe Hx of hernia repair H/O lithotripsy S/P cervical spinal fusion Hx of neck surgery Hx of cholecystectomy Social History household members: spouse current occupational 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 No fevers or chills, no nausea or vomiting. No problems with bowel movements or dysuria. No exacerbating or alleviating factors. EXAM Physical Exam Narrative Exam Narrative: Afebrile. Vital signs noted. Nontoxic-appearing. Cardiovascular examination feels a regular rate and rhythm. Lungs are clear to auscultation bilaterally. Abdomen is soft with minimal tenderness palpation of the right upper quadrant, no guarding or rebound. Positive bowel sounds. Neurological examination nonfocal, nonlateralizing. Const Vital Signs: 12/27/24 16:14 12/27/24 18:13 12/27/24 21:10 Temperature 97.1 F L Temperature Source Temporal Pulse Rate 63 60 74 Respiratory Rate 16 14 16 Blood Pressure 105/65 110/51 L 110/50 L Blood Pressure Mean 78 70 70 Pulse Ox 97 97 96 Oxygen Delivery Method Room Air Room Air Room Air MDM MDM MDM Narrative Medical decision making narrative: I reviewed the patient's prior records. I had actually seen him when he initially was diagnosed on CT with the common bile duct stone. Patient had been discussed with surgery and gastroenterology at that time and admitted. Additionally, I reviewed the radiology report from the ultrasound today and he has a 3.5 x 5.5 x 6.5 cm fluid collection in the gallbladder fossa with concern for abscess. Patient will be started on Zosyn and CBC, CMP, and lipase checked. I attempted to contact [facility] as patient states that is where he was supposed to be transferred to see interventional radiology versus gastroenterology as interventional radiology is not available here at this facility currently. They have a waiting list. I will discuss the patient with gastroenterology and after he is placed on the waiting list, I will discuss the patient with the hospitalist for admission here. This is as he awaits transfer. I reviewed his laboratory work and he does have an elevated white count of 13.9 but this is down when compared to previous laboratories, hemoglobin 10.7 and stable, hematocrit 32.1, platelet count 298. BUN is elevated 53 with creatinine at 2.54 but when reviewed and compared to prior laboratories, he has chronic kidney disease. LFTs show an alk phos of 189 but normal AST and normal ALT. Lipase normal at 15. I did discuss patient with Dr. Tan who would like IV fluids running at 125 mL/h and is comfortable with the patient being started on Zosyn. He was told that there is a waiting list at [facility] and that the patient would require admission here and possible further management and consultation to gastroenterology.. I will discuss patient with the transfer center at [facility], then with the hospitalist. However, [facility] did not call back in a timely fashion for me to conference with the hospitalist. I discussed with the patient the possibility of transfer to another tertiary care center that has interventional radiology. He requested [facility]. I discussed the patient with the [facility] Transfer line, then with the hospitalist Dr. Valderrama who has accepted him in transfer. Disposition is transferred in stable condition. History & Record Review Discussion w/independent historian: Patient Additional record(s) reviewed:: Prior ED visit Lab Data Attestation: I reviewed the patient's lab results. Labs: Laboratory Results - last 24 hr 12/27/24 18:45 WBC 13.9 H RBC 3.37 L Hgb 10.7 L Hct 32.1 L MCV 95.3 H MCH 31.8 MCHC 33.3 RDW Std Deviation 45.4 H RDW Coeff of Germ[place] 13.0 Plt Count 298 MPV 10.0 Immature Gran % (Auto) 0.600 Neut % (Auto) 71.5 H Lymph % (Auto) 18.3 L [place] % (Auto) 7.2 Eos % (Auto) 1.8 Baso % (Auto) 0.6 Absolute Neuts (auto) 10.0 H Absolute Lymphs (auto) 2.54 Nucleated RBC % 0 Sodium 136 Potassium 4.3 Chloride 103 Carbon Dioxide 20.3 L Anion Gap 13 BUN 53 H Creatinine 2.54 H Estim Creat Clear Calc 33.34 L Est GFR (MDRD) Non-Af 27 L BUN/Creatinine Ratio 20.8 H Glucose 77 Calcium 9.3 Total Bilirubin 0.26 AST 21 ALT 14 Alkaline Phosphatase 189 H Total Protein 7.5 Albumin 3.8 Globulin 3.7 Albumin/Globulin Ratio 1.0 Lipase 15 Management Discussion w/another healthcare provider: [facility] Discharge Plan Triage Chief Complaint: Abd Pain ED Provider: Estiven Shearer Dx/Rx/DC Orders Clinical Impression: Intra-abdominal abscess post-procedure, Chronic kidney disease, Abdominal pain Prescriptions: No Action triamcinolone acetonide 0.1 % ointment 1 applic topical BID PRN (Reason: rash) polyethylene glycol 3350 [Miralax] 17 gram/dose powder 4 g PO QDAY pantoprazole 40 mg tablet,delayed release (DR/EC) 40 mg PO QDAY Qty: 30 1RF insulin aspart U-100 [Novolog FlexPen U-100 Insulin] 100 unit/mL (3 mL) insulin pen See Protocol SUBCUT ACHS Protocol: 6. Sliding Scale Insulin Custom Condition: mg/dl range Dose/Route: Number of Units Dose/Route: 3 units Instruction: >150 Dose/Route: 5 units Instruction: >175 Dose/Route: 7 unis Instruction: >200 Protocol Text: Custom Sliding Scale Patient Comments: USE A SLIDING SCALE 3 TIMES A DAY UP TO 45 UNITS A DAY UNDERSKIN DIRECTED 90 aspirin 81 mg capsule 81 mg PO DAILY folic acid 800 mcg tablet 800 mcg PO DAILY mecobalamin (vitamin B12) 1,000 mcg tablet,chewable 1,000 mcg PO .every other day calcium carbonate-vitamin D3 [Calcium 600 + D(3)] 600 mg-5 mcg (200 unit) tablet 1 tab PO BID cholecalciferol (vitamin D3) [Vitamin D3] 25 mcg (1,000 unit) capsule 25 mcg PO DAILY ascorbic acid (vitamin C) [C-500] 500 mg tablet 500 mg PO DAILY ferrous sulfate 325 mg (65 mg iron) tablet,delayed release (DR/EC) 325 mg PO DAILY Qty: 90 0RF olmesartan 5 mg tablet 5 mg PO DAILY Qty: 90 1RF (DME) pen needle, diabetic [BD Ultra-Fine Short Pen Needle] 31 gauge x 5/16 needle See Rx Instructions .Route Qty: 300 2RF Rx Instructions: As directed three times daily for DMII metoprolol tartrate 50 mg tablet 50 mg PO BID 90 Days Qty: 180 1RF atorvastatin 20 mg tablet 20 mg PO QHS Qty: 90 1RF furosemide 40 mg tablet 40 mg PO DAILY Qty: 90 1RF allopurinol 100 mg tablet 100 mg PO BID Qty: 180 1RF amlodipine 10 mg tablet 10 mg PO DAILY Qty: 90 1RF insulin degludec [Tresiba FlexTouch U-200] 200 unit/mL (3 mL) insulin pen 40 unit subcut QHS Qty: 9 2RF (DME) OneTouch Ultra Test Strip See Rx Instructions .Route Qty: 100 3RF Rx Instructions: As directed to check BG three times daily for DMII Primary Care Provider: More Padilla Referrals: More Padilla MD [Primary Care Provider] - Print Language: Hebrew Disposition Disposition: Acute Care Hospital Discharge Location: [facility]
[2024-12-27] MEDS: Piperacil/Tazobactam 3.375 GM in 0.9% Normal Saline (50mL MB+) 50 ML IV (18:54)
[2024-12-27 18:57] LABS: Absolute Lymphocyte Count 2.54 X10^3/uL (0.83-4.51); Basophil# 0.08 X10^3/uL; Basophil% 0.6 % (0-1); Eosinophil# 0.25 X10^3/uL; Eosinophils% 1.8 % (0-5); Hematocrit 32.1 % (40-54); Hemoglobin 10.7 g/dL (13.0-16.5); Lymphocyte # 2.54 X10^3/ul (0.83-4.51); Lymphocyte % 18.3 % (19-41); Mean Corp Hgb Conc 33.3 g/dL (32-36); Mean Corpuscular Hgb 31.8 pg (27.0-32.0); Mean Corpuscular Volume 95.3 fL (80-94); Monocyte% 7.2 % (0-10); NRBC Flagged by Analyzer 0 % (0-5); Neutrophil # 9.95 X10^3/uL (2.7-7.7); Neutrophil % 71.5 % (47-70); Platelet Count 298 K/mm3 (150-450); RBC Distribution Width SD 45.4 fl (35.1-43.9); Red Blood Count 3.37 M/mm3 (4.6-6.2); White Blood Count 13.9 K/mm3 (4.4-11.0)
[2024-12-27] MEDS: 0.9% Normal Saline (1000mL) 1,000 ML 125 ML IV (18:57)
[2024-12-27 19:45] LABS: AST(SGOT) 21 U/L (<=37); Alanine Aminotransfer ALT/SGPT 14 U/L (<=46); Albumin, Serum 3.8 g/dL (3.4-4.8); Alkaline Phosphatase 189 U/L (40-129); Anion Gap 13 (5-15); BUN 53 mg/dL (4-19); BUN/Creat Ratio 20.8 RATIO (10-20); Calcium,Total 9.3 mg/dL (7.6-11.0); Carbon Dioxide 20.3 mmol/L (21.0-32.0); Chloride 103 mmol/L (98-108); Creatinine, Serum 2.54 mg/dL (0.70-1.20); EST Glomerular Filtration Rate 27 (>60); Estimated Creatinine Clearance 33.34 ml/min (50-250); Globulin 3.7 g/dL (2.2-4.2); Glucose 77 mg/dL (70-99); Lipase 15 U/L (13-75); Potassium 4.3 mmol/L (3.3-5.1); Protein, Total 7.5 g/dL (5.9-8.4); Sodium Level 136 mmol/L (133-145); Total Bilirubin 0.26 mg/dL (0.00-1.30)
--- NOTE | 2024-12-27 20:55 | PCA ---
CALLED [facility] TRANSFER LINE, STILL WAITING FOR CALL BACK. PT IS ON THE WAITLIST.
[2024-12-27 21:10] VITALS: BP 110/50; PULSE 74; RESP 16; O2SAT 96
[2024-12-27 23:00] VITALS: BP 136/78; PULSE 82; RESP 18; O2SAT 97
[2024-12-28 00:08] VITALS: BP 138/74; PULSE 82; RESP 18; TEMP 36.8; O2SAT 97
[2024-12-28 00:16] LABS: Bedside Glucose 176 mg/dL (74-106)
== END 2024-12-28 01:37 | disposition short-term general hospital (02) ==
PROVIDERS: Emergency Provider Emergency Medicine; PCP Internal Medicine; Visit Provider Emergency Medicine
DX: R10.9 Unspecified abdominal pain (principal); Z79.4 Long term (current) use of insulin; E11.22 Type 2 diabetes mellitus with diabetic chronic kidney disease; N18.30 Chronic kidney disease, stage 3 unspecified; K68.11 Postprocedural retroperitoneal abscess; I25.10 Atherosclerotic heart disease of native coronary artery without angina pectoris; E78.00 Pure hypercholesterolemia, unspecified; Z90.49 Acquired absence of other specified parts of digestive tract; Z79.82 Long term (current) use of aspirin; I12.9 Hypertensive chronic kidney disease with stage 1 through stage 4 chronic kidney disease, or unspecified chronic kidney disease; Z79.899 Other long term (current) drug therapy; K21.9 Gastro-esophageal reflux disease without esophagitis
CPT/HCPCS: 80053; 82962; 83690; 85025; 99284; A4216

== ENCOUNTER → 2024-12-27 | Outpatient (CLI) | payer MEDICARE, SELFPAY ==
--- NOTE | 2024-12-27 07:25 | US_ITS ---
EXAM: US Abdomen Limited, Right Upper Quadrant CLINICAL INDICATION: RUQ PAIN ERCP WITH STENT REMOVAL, ELEVATED WBC TECHNIQUE: Real-time ultrasound of the right upper quadrant with image documentation. COMPARISON: No relevant prior studies available. FINDINGS: LIVER: Hepatopetal blood flow in main portal vein. Liver measures up to 20.7 cm. Fatty infiltration of the liver. GALLBLADDER: Status post cholecystectomy. Fluid noted in the gallbladder fossa extending to the extrahepatic region measuring 3.5 x 5.5 x 6.5 cm. COMMON BILE DUCT: Unremarkable as visualized. No stones. No dilation. Common bile duct measures 0.6 cm in diameter. PANCREAS: Unremarkable as visualized. RIGHT KIDNEY: Unremarkable. No stones. No hydronephrosis. The right kidney measures 11.6 x 5.9 x 5.7 cm. US/Abdomen Limited IMPRESSION: 1. Fatty infiltration of the liver. 2. Fluid noted in the gallbladder fossa extending to the extrahepatic region m easuring 3.5 x 5.5 x 6.5 cm. Reading Location: [facility]
== END | disposition home or self-care (01) ==
PROVIDERS: PCP Internal Medicine; Referring Provider Nurse Practitioner Acute Care; Visit Provider Nurse Practitioner Acute Care
DX: R10.11 Right upper quadrant pain (principal); R11.0 Nausea; R10.13 Epigastric pain
CPT/HCPCS: 76705

== ENCOUNTER → 2025-01-08 | Outpatient (CLI) | payer MEDICARE, SELFPAY ==
[2025-01-08 12:24] LABS: Absolute Lymphocyte Count 2.39 X10^3/uL (0.83-4.51); Absolute Neutrophil Count 6.7 X10^3/uL (2.0-7.7); Basophil# 0.06 X10^3/uL; Basophil% 0.6 % (0-1); Eosinophil# 0.15 X10^3/uL; Eosinophils% 1.5 % (0-5); Hematocrit 33.9 % (40-54); Hemoglobin 11.2 g/dL (13.0-16.5); Lymphocyte # 2.39 X10^3/ul (0.83-4.51); Lymphocyte % 24.3 % (19-41); Mean Corpuscular Hgb 32.1 pg (27.0-32.0); Mean Corpuscular Volume 97.1 fL (80-94); Mean Platelet Vol. 10.9 fl (6.2-12.0); Monocyte# 0.52 X10^3/uL; Monocyte% 5.3 % (0-10); NRBC Flagged by Analyzer 0 % (0-5); Neutrophil # 6.66 X10^3/uL (2.7-7.7); Neutrophil % 67.7 % (47-70); Platelet Count 261 K/mm3 (150-450); RBC Distribution Width CV 13.7 % (11.6-14.6); RBC Distribution Width SD 48.5 fl (35.1-43.9); Red Blood Count 3.49 M/mm3 (4.6-6.2); White Blood Count 9.8 K/mm3 (4.4-11.0)
[2025-01-08 12:51] LABS: CRP 4.76 mg/L (0.0-3.0)
== END | disposition home or self-care (01) ==
LOC: BIMLAB 08:06
PROVIDERS: PCP Internal Medicine; Referring Provider Nurse Practitioner Acute Care; Visit Provider Nurse Practitioner Acute Care
DX: R10.11 Right upper quadrant pain (principal); R79.82 Elevated C-reactive protein (CRP); D72.829 Elevated white blood cell count, unspecified
CPT/HCPCS: 36415; 85025; 86140

== ENCOUNTER → 2025-02-12 | Outpatient (CLI) | payer MEDICARE, SELFPAY ==
[2025-02-12 08:51] LABS: Hematocrit 34.6 % (40-54); Hemoglobin 11.5 g/dL (13.0-16.5); Immature Granulocytes Count 0.020 X10^3/uL (0.0-0.0); Mean Corp Hgb Conc 33.2 g/dL (32-36); Mean Corpuscular Volume 95.6 fL (80-94); Mean Platelet Vol. 10.3 fl (6.2-12.0); NRBC Flagged by Analyzer 0 % (0-5); Platelet Count 177 K/mm3 (150-450); RBC Distribution Width CV 13.7 % (11.6-14.6); RBC Distribution Width SD 48.7 fl (35.1-43.9); Red Blood Count 3.62 M/mm3 (4.6-6.2); White Blood Count 7.1 K/mm3 (4.4-11.0)
[2025-02-12 09:04] LABS: Creatinine, Urine (random) 47.30 mg/dL (39.00-259.00); Protein, Urine (Random) < 6.0 mg/dL (0.0-12.0); Protein:Creat Ratio 116 mg/g CRE (0-200)
[2025-02-12 09:29] LABS: PTHIN 78 pg/mL (11-61)
[2025-02-12 09:31] LABS: Albumin, Serum 4.1 g/dL (3.4-4.8); Anion Gap 10 (5-15); BUN 46 mg/dL (4-19); BUN/Creat Ratio 27.0 RATIO (10-20); Calcium,Total 9.1 mg/dL (7.6-11.0); Carbon Dioxide 23.1 mmol/L (21.0-32.0); Chloride 99 mmol/L (98-108); Glucose 72 mg/dL (70-99); Potassium 4.8 mmol/L (3.3-5.1); Vitamin D,25 Hydroxy 39.3 ng/mL (30-100)
[2025-02-12 10:01] LABS: CRP < 3.00 mg/L (0.0-3.0)
== END | disposition home or self-care (01) ==
LOC: LAB 08:03
PROVIDERS: Internal Medicine Nephrology; PCP Internal Medicine; Referring Provider Nurse Practitioner Acute Care; Visit Provider Nurse Practitioner Acute Care
DX: N18.4 Chronic kidney disease, stage 4 (severe) (principal); D64.9 Anemia, unspecified; R79.82 Elevated C-reactive protein (CRP)
CPT/HCPCS: 36415; 80069; 82306; 82570; 83970; 84156; 85025; 86140

== ENCOUNTER 2025-05-21 17:10 | Emergency (ER) | payer MEDICARE, SELFPAY ==
[2025-05-21 17:10] VITALS: BP 145/62; PULSE 66; RESP 16; TEMP 36.8; O2SAT 98; BMI 32.6
--- NOTE | 2025-05-21 17:20 | EKG12_ITS ---
Test Reason : CP Blood Pressure : */* mmHG Vent. Rate : 66 BPM Atrial Rate : 66 BPM P-R Int : 182 ms QRS Dur : 94 ms QT Int : 412 ms P-R-T Axes : 27 -36 63 degrees QTcB Int : 431 ms Normal sinus rhythm Left axis deviation Low voltage QRS Septal infarct , age undetermined Abnormal ECG Confirmed by ELVIRA HUI, NABOR ([id number]), advertising editor BETTE BERNARDO ([id number]) on 05/22/2025 1:28:04 PM Referred By: SHOSHANA Confirmed By: NABOR FELIX MD
--- NOTE | 2025-05-21 17:36 | ED.VIS.CHEST ---
HPI History of Present Illness Chief Complaint: Chest Pain Informant: patient Onset/Context/Timing Onset: Today and Hours Activity at onset: gradual Timing: Intermittent Quality: Positive for Sharp and Stabbing (Left parasternal chest discomfort.) Location: Left Parasternal Current Severity: Mild Maximum Severity: Mild Worsened By: Nothing Relieved By: Nothing Associated Symptoms: Negative for Nausea, Vomiting, Diaphoresis, Dyspnea, Cough, Fever, Lightheadedness, Acid Reflux or Palpitations Narrative Narrative: 69-year-old male no history of cardiac disease stress test nuclear stress test earlier this year which was negative. Has a history of diabetes and chronic kidney disease. Prior cholecystectomy. No history of DVT or PE. No recent travel, surgery or hospitalization. No pleuritic pain. Nothing particular makes the pain better or worse. Kimon today at rest. Is not exertional. Prior Similar Symptoms: No Recent Illness/Hospitalization: No CVD Risk Factors: Positive for Hypertension and Diabetes PE Risk Factors: Negative for Recent Travel/Surgery, Recent Immobilization, Prior DVT or PE, Cancer or OCP + Smoking + >/=35 TAD Risk Factors: Negative for Marfan's Syndrome [facility] Medical History Wears glasses Insulin dependent diabetes mellitus Diabetes History of renal disease Low iron Fatty liver High cholesterol Injury of head and neck Dietary restriction History of hiatal hernia Non-smoker History of edema History of echocardiogram History of stress test Cardiology follow-up encounter Morbid obesity with BMI of 40.0-44.9, adult Leukocytosis Constipation Dry heaves Nausea Intractable abdominal pain Calculus of cystic duct Right upper quadrant abdominal pain Fatty liver Metabolic dysfunction-associated steatotic liver disease (MASLD) Chest pain Dilated aortic root Diastolic dysfunction Morbidly obese Venous insufficiency Abnormal EKG Atherosclerosis of picayune coronary artery of 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 Left ventricular hypertrophy Hyperlipidemia GERD (gastroesophageal reflux disease) Osteopenia Anemia Arthritis CKD stage 3 secondary to diabetes Hypertension Type 2 diabetes mellitus Home Medications ?Medication ?Instructions ?Recorded ?Last Taken ?Type aspirin 81 mg capsule 81 mg PO DAILY HEART 04/03/23 05/21/25 History calcium 600 mg (as 1 tab PO BID SUPPLEMENT 04/03/23 05/21/25 History carbonate)-vitamin D3 5 mcg (200 unit) tablet (Calcium 600 + D(3)) folic acid 800 mcg tablet 800 mcg PO DAILY SUPPLEMENT 04/03/23 05/21/25 History mecobalamin (vitamin B12) 1,000 1,000 mcg PO QODAY SUPPLEMENT 04/03/23 05/20/25 History mcg chewable tablet insulin aspart U-100 100 unit/mL See Protocol subcut ACHS DIABETES 09/05/23 05/21/25 History (3 mL) subcutaneous pen (Novolog FlexPen U-100 Insulin aspart) ferrous sulfate 325 mg (65 mg 325 mg PO DAILY SUPPLEMENT #90 tabs 01/20/24 05/21/25 Rx iron) tablet,delayed release pen needle, diabetic 31 gauge x #300 ea 08/10/24 Unknown Rx /16 (BD Ultra-Fine Short Pen Needle) ascorbic acid (vitamin C) 500 mg 500 mg PO DAILY FOR IRON ABSORBTION 11/22/24 05/21/25 History tablet (C-500) cholecalciferol (vitamin D3) 25 25 mcg PO DAILY SUPPLEMENT 11/22/24 05/20/25 History mcg (1,000 unit) capsule (Vitamin D3) polyethylene glycol 3350 17 4 g PO QDAY CONSTIPATION 11/22/24 05/21/25 History gram/dose oral powder (Miralax) metoprolol tartrate 50 mg tablet 50 mg PO BID BLOOD PRESSURE 90 01/28/25 05/21/25 Rx days #180 tabs olmesartan 5 mg tablet 5 mg PO DAILY BLOOD PRESSURE #90 02/05/25 05/21/25 Rx tabs pantoprazole 40 mg tablet,delayed 40 mg PO DAILY GERD #90 TABLETS 02/25/25 05/21/25 Rx release insulin degludec 200 unit/mL (3 40 unit (0.2 mL) subcut QHS 03/12/25 05/20/25 Rx mL) subcutaneous pen (Tresiba DIABETES #9 mL FlexTouch U-200 insulin) lancets #200 ea 03/19/25 Unknown Rx allopurinol 100 mg tablet 100 mg PO BID HIGH URIC ACID #180 04/09/25 05/21/25 Rx tabs amlodipine 10 mg tablet 10 mg PO DAILY BLOOD PRESSURE #90 04/09/25 05/21/25 Rx tabs atorvastatin 20 mg tablet 20 mg PO QHS CHOLESTEROL #90 tabs 04/09/25 05/20/25 Rx furosemide 40 mg tablet 40 mg PO DAILY EDEMA #90 tabs 04/09/25 05/21/25 Rx lancets 30 gauge (KaushikTouch Delica #100 ea 05/14/25 Unknown Rx Plus Lancet) Allergy/AdvReac Type Severity Reaction Status Date / Time latex Allergy Unknown Rash Verified 05/21/25 17:11 bacitracin (From Neosporin Allergy Rash Verified 05/21/25 17:11 ([id number])) neomycin (From Neosporin Allergy Rash Verified 05/21/25 17:11 ([id number])) nickel Allergy PT UNSURE Verified 05/21/25 17:11 OF REACTION polymyxin B (From Neosporin Allergy Rash Verified 05/21/25 17:11 ([id number])) Family History Grandmother Diabetes Father Heart disease Myocardial infarction 59 Cancer prostate and throat Hypertension Hyperlipidemia Mother Cancer lung Brother Aortic aneurysm Cancer prostate Surgical History History of cardiac catheterization Cataract extraction status History of foot surgery History of carpal tunnel release Amputation toe Hx of hernia repair H/O lithotripsy S/P cervical spinal fusion Hx of neck surgery Hx of cholecystectomy Social History household members: spouse current occupational 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 Constitutional Constitutional ED: Denies chills or fever(s) Eyes Eyes: Reports none ENT ENT ED: Denies ear pain Cardiovascular Cardiovascular: Reports as per HPI and chest pain; Denies palpitations or racing heartbeat Respiratory/Chest Respiratory/Chest: Denies cough, dyspnea or dyspnea on exertion Gastrointestinal Gastrointestinal: Denies abdominal pain Genitourinary Genitourinary ED: Denies dysuria or hematuria Musculoskeletal Musculoskeletal: Denies arthralgias Integumentary Denies abscess or Abrasions Neurologic Neurologic: Denies headache(s) Psychiatric Psychiatric: Denies anxiety Endocrine Endocrinology: Denies cold intolerance Hematologic/Lymphatic Hematologic/Lymphatic: Denies easy bleeding, easy bruising or lymphadenopathy Allergic/Immunologic Allergic/Immunologic ED: Denies mouth swelling, tongue swelling or urticaria EXAM Physical Exam Narrative Exam Narrative: Well-appearing 69-year-old male. Vital signs stable afebrile. No acute distress. Pulse ox 98% on room air no hypoxia. H EENT exam pupils round react light. Moist mutes members. Neck nontender JVD. Lungs clear to auscultation bilaterally. Heart regular rhythm rate about 66 no murmur. Chest wall ribs nontender. No ecchymosis or bruising. No rash. No signs of trauma. Abdomen soft nontender normal normal bowel sounds no peritoneal signs. No right upper quadrant tenderness. No pulsatile mass. Moving all 4 extremities. Calves nontender without edema or cords. Normal dorsi plantarflexion. Normal right of way worker strength. Equal symmetrical radial pulses. Back nontender. Neurologically he is awake alert. Answering questions following commands. He is mildly anxious. Const Vital Signs: 05/21/25 17:10 05/21/25 17:34 05/21/25 17:35 Temperature 98.3 F Temperature Source Oral Pulse Rate 66 Respiratory Rate 16 Respiratory Effort Normal Non-Labored Blood Pressure 145/62 H Blood Pressure Mean 89 Pulse Ox 98 Oxygen Delivery Method Room Air Room Air 05/21/25 18:10 05/21/25 19:00 05/21/25 20:00 Temperature Temperature Source Pulse Rate 61 59 L 62 Respiratory Rate 15 16 17 Respiratory Effort Blood Pressure 132/59 H 130/85 H 132/57 H Blood Pressure Mean 83 100 82 Pulse Ox 95 94 97 Oxygen Delivery Method Room Air Room Air Positive well nourished; Negative for cachectic, contractures or unkempt General Appearance ED: NAD; Negative for unkempt, cachectic, contractures or pallor Nutritional Appearance: Negative for cachectic HEENT Reports moist mucous membranes normocephalic and atraumatic Eyes PERRL Neck no lymphadenopathy, supple and no JVD Chest Wall inspection of chest normal and palpation of chest normal Resp normal respiratory effort and clear to auscultation bilaterally Cardio regular rate, regular rhythm, S1 normal heart sound, S2 normal heart sound and no murmurs Peripheral Pulses: pulses 2+ throughout GI normal to inspection, nondistended, normoactive bowel sounds, soft to palpation, non-tender, non-distended and no masses Back/Spine no CVA tenderness and no thoracic nor lumbar tenderness Extremity normal to inspection General Extremety ED: Negative for edema, pulses abnormal or tenderness General Extremity: Negative for edema or pulses abnormal Neuro oriented x3 and CN's II-XII intact bilaterally Sensorium / Orientation: awake, alert, oriented to person, oriented to place and oriented to time; Negative for confused, lethargic or stuporous Psych mental status grossly normal Appearance: Negative for unkempt Mood & Affect: anxious Skin no rashes or lesions noted and no wounds General Skin Exam: Negative for jaundice or pallor Rashes: No rashes noted Trauma: Negative for abrasion or laceration MDM MDM MDM Narrative Medical decision making narrative: 69-year-old male history of diabetes with atypical nonexertional chest pain undergoing cardiac workup. No history of DVT or PE no risk factors. I do not think it is that at all that he needs a D-dimer. Clinically this does not sound cardiac. His abdomen is benign. His gallbladder is out I do not think it is pancreatitis or gallbladder disease. Repeat exam around 8:05 PM patient doing well. We went over his test results. We are awaiting his 2-hour troponin. Repeat exam patient is doing well at 8:36 PM. 2-hour troponin was improved to 24. Will be discharged home with chest pain insert etiology. Patient is comfortable to plan. History & Record Review Discussion w/independent historian: Patient Additional record(s) reviewed:: Prior inpatient record, Prior outpatient record, Prior ED visit and Prior labs Lab Data Attestation: I reviewed the patient's lab results. Lab results narrative: Chest x-ray chronic changes. CBC shows a white count 8. H&H 13 and 39. Platelets 186. Electrolytes show gap 13. BUN and creatinine of 56 and 1.92. Glucose 176. Liver enzymes unremarkable. Lipase 24. Initial troponin 27. 2-hour troponin 24. Labs: Laboratory Results - last 24 hr 05/21/25 05/21/25 17:40 19:37 WBC 8.2 RBC 4.11 L Hgb 13.4 Hct 39.2 L MCV 95.4 H MCH 32.6 H MCHC 34.2 RDW Std Deviation 47.5 H RDW Coeff of Germain 13.5 Plt Count 186 MPV 10.8 Immature Gran % (Auto) 0.400 Neut % (Auto) 58.3 Lymph % (Auto) 31.5 [place] % (Auto) 6.9 Eos % (Auto) 2.5 Baso % (Auto) 0.4 Absolute Neuts (auto) 4.8 Absolute Lymphs (auto) 2.57 Nucleated RBC % 0 Sodium 137 Potassium 4.5 Chloride 104 Carbon Dioxide 20.0 L Anion Gap 13 BUN 56 H Creatinine 1.92 H Estim Creat Clear Calc 39.80 L Est GFR (MDRD) Non-Af 37 L BUN/Creatinine Ratio 29.2 H Glucose 176 H Calcium 9.3 Total Bilirubin 0.28 Direct Bilirubin < 0.08 AST 24 ALT 14 Alkaline Phosphatase 100 Troponin T High Sens 27 H D Troponin T Hi Sens 2 Hr 24 H Total Protein 8.0 Albumin 4.4 Globulin 3.7 Lipase 24 Radiography Chest X-Ray - ED: 2 View, Read by ED Physician, Read by Radiologist, Heart, Lungs, Mediastinum, Bony Structures, No Acute Disease and Chronic Changes Diagnostic Testing: Clinical Impression(s) from Imaging Studies Chest X-Ray 05/21/25 17:43 IMPRESSION: No acute cardiopulmonary abnormality. Reading Location: [facility] Chest x-ray, 2 views, AP and lateral, interpreted by myself and the radiologist shows no acute abnormality. Normal cardiac silhouette. Chronic changes. No acute process. Rhythm Strip Rhythm Strip: Sinus Rhythm Rate: 66 Ectopy: None EKG Initial EKG: Attestation: I personally reviewed and interpreted this EKG as follows: Interpretation: No Acute Injury Pattern Comments: Normal sinus rhythm rate of 66 no acute signs of ME or ischemia. No dysrhythmia. Prior EKG tracings: available for review Prior: Unchanged Discharge Plan Triage Chief Complaint: Chest Pain ED Provider: Norbert Burt Dx/Rx/DC Orders Prescriptions: No Action polyethylene glycol 3350 [Miralax] 17 gram/dose powder 4 g PO QDAY insulin aspart U-100 [Novolog FlexPen U-100 Insulin] 100 unit/mL (3 mL) insulin pen See Protocol SUBCUT ACHS Protocol: 6. Sliding Scale Insulin Custom Condition: mg/dl range Dose/Route: Number of Units Dose/Route: 3 units Instruction: >150 Dose/Route: 5 units Instruction: >175 Dose/Route: 7 unis Instruction: >200 Protocol Text: Custom Sliding Scale Patient Comments: USE A SLIDING SCALE 3 TIMES A DAY UP TO 45 UNITS A DAY UNDERSKIN DIRECTED 90 aspirin 81 mg capsule 81 mg PO DAILY folic acid 800 mcg tablet 800 mcg PO DAILY mecobalamin (vitamin B12) 1,000 mcg tablet,chewable 1,000 mcg PO QODAY Patient Comments: PT TAKES MOWEFRSU calcium carbonate-vitamin D3 [Calcium 600 + D(3)] 600 mg-5 mcg (200 unit) tablet 1 tab PO BID cholecalciferol (vitamin D3) [Vitamin D3] 25 mcg (1,000 unit) capsule 25 mcg PO DAILY ascorbic acid (vitamin C) [C-500] 500 mg tablet 500 mg PO DAILY ferrous sulfate 325 mg (65 mg iron) tablet,delayed release (DR/EC) 325 mg PO DAILY Qty: 90 0RF (DME) pen needle, diabetic [BD Ultra-Fine Short Pen Needle] 31 gauge x 5/16 needle See Rx Instructions .Route Qty: 300 2RF Rx Instructions: As directed three times daily for DMII metoprolol tartrate 50 mg tablet 50 mg PO BID 90 Days Qty: 180 1RF olmesartan 5 mg tablet 5 mg PO DAILY Qty: 90 1RF pantoprazole 40 mg tablet,delayed release (DR/EC) 40 mg PO DAILY Qty: 90 1RF insulin degludec [Tresiba FlexTouch U-200] 200 unit/mL (3 mL) insulin pen 40 unit subcut QHS Qty: 9 2RF (DME) lancets Misc See Rx Instructions .Route Qty: 200 1RF Rx Instructions: As directed atorvastatin 20 mg tablet 20 mg PO QHS Qty: 90 1RF furosemide 40 mg tablet 40 mg PO DAILY Qty: 90 1RF allopurinol 100 mg tablet 100 mg PO BID Qty: 180 1RF amlodipine 10 mg tablet 10 mg PO DAILY Qty: 90 1RF (DME) lancets [OneTouch Delica Plus Lancet] 30 gauge misc See Rx Instructions .ROUTE .COMPLEX Qty: 100 1RF Dose Instruction: DIRECTED Rx Instructions: DIRECTED Primary Care Provider: More Padilla Referrals: More Padilla MD [Primary Care Provider, Internal Medicine] Print Language: Greenlandic
--- NOTE | 2025-05-21 17:43 | RAD_ITS ---
PROCEDURE: CHEST PA AND LATERAL 05/21/2025 REASON FOR EXAM: CHEST PAIN TECHNIQUE: Procedure Code: RADCXR Modality: DX Procedure: CHEST PA AND LATERAL COMPARISON: Chest x-ray 08/22/2024 FINDINGS: Hardware: Partially visualized ACDF. Monitoring electrodes overlying chest wall. Heart: Heart size is mildly enlarged. Mediastinum: The mediastinal contour is stable. Lungs: Mild bibasilar atelectasis. Bones: Degenerative changes are identified within the thoracic spine. RAD/Chest PA and Lateral IMPRESSION: No acute cardiopulmonary abnormality. Reading Location: [id number]
[2025-05-21 17:52] LABS: Hematocrit 39.2 % (40-54); Hemoglobin 13.4 g/dL (13.0-16.5); Immature Granulocytes Count 0.030 X10^3/uL (0.0-0.0); Mean Corp Hgb Conc 34.2 g/dL (32-36); Mean Corpuscular Volume 95.4 fL (80-94); Mean Platelet Vol. 10.8 fl (6.2-12.0); NRBC Flagged by Analyzer 0 % (0-5); Platelet Count 186 K/mm3 (150-450); RBC Distribution Width CV 13.5 % (11.6-14.6); RBC Distribution Width SD 47.5 fl (35.1-43.9); Red Blood Count 4.11 M/mm3 (4.6-6.2); White Blood Count 8.2 K/mm3 (4.4-11.0)
[2025-05-21 18:10] VITALS: BP 132/59; PULSE 61; RESP 15; O2SAT 95
[2025-05-21 18:39] LABS: Lipase 24 U/L (13-75); Troponin T High Sensitivity 27 ng/L (<=22)
[2025-05-21 18:40] LABS: AST(SGOT) 24 U/L (<=37); Alanine Aminotransfer ALT/SGPT 14 U/L (<=46); Albumin, Serum 4.4 g/dL (3.4-4.8); Alkaline Phosphatase 100 U/L (40-129); Anion Gap 13 (5-15); BUN 56 mg/dL (4-19); BUN/Creat Ratio 29.2 RATIO (10-20); Bilirubin, Direct < 0.08 mg/dL (0.00-0.30); Calcium,Total 9.3 mg/dL (7.6-11.0); Carbon Dioxide 20.0 mmol/L (21.0-32.0); Chloride 104 mmol/L (98-108); Estimated Creatinine Clearance 39.80 ml/min (50-250); Globulin 3.7 g/dL (2.2-4.2); Glucose 176 mg/dL (70-99); Potassium 4.5 mmol/L (3.3-5.1)
[2025-05-21 19:00] VITALS: BP 130/85; PULSE 59; RESP 16; O2SAT 94
[2025-05-21 20:00] VITALS: BP 132/57; PULSE 62; RESP 17; O2SAT 97
[2025-05-21 20:11] LABS: Troponin T High Sens 2 HR 24 ng/L (<=22)
[2025-05-21 20:36] VITALS: BP 132/57; PULSE 62; RESP 17; TEMP 36.8; O2SAT 97
== END 2025-05-21 20:46 | disposition home or self-care (01) ==
PROVIDERS: Emergency Provider Emergency Medicine; PCP Internal Medicine; Visit Provider Emergency Medicine
DX: R07.9 Chest pain, unspecified (principal); E11.22 Type 2 diabetes mellitus with diabetic chronic kidney disease; Z79.4 Long term (current) use of insulin; N18.30 Chronic kidney disease, stage 3 unspecified; E78.00 Pure hypercholesterolemia, unspecified; I25.10 Atherosclerotic heart disease of native coronary artery without angina pectoris; I12.9 Hypertensive chronic kidney disease with stage 1 through stage 4 chronic kidney disease, or unspecified chronic kidney disease; Z79.82 Long term (current) use of aspirin; Z79.899 Other long term (current) drug therapy; K21.9 Gastro-esophageal reflux disease without esophagitis; Z98.49 Cataract extraction status, unspecified eye; Z90.49 Acquired absence of other specified parts of digestive tract
CPT/HCPCS: 71046; 80048; 80076; 83690; 84484; 85025; 93005; 99284; A4216

== ENCOUNTER → 2025-06-25 | Outpatient (CLI) | payer MEDICARE, SELFPAY ==
--- NOTE | 2025-06-25 12:20 | MRI_ITS ---
PROCEDURE: SPINE CERVICAL (ROUTINE) 06/25/2025 REASON FOR EXAM: LEFT ARM PAIN, WORSENING DEXTERITY TECHNIQUE: Procedure Code: MRISPC Modality: MR Procedure: SPINE CERVICAL (ROUTINE) Multiplanar and multisequence images were obtained without IV contrast administration. COMPARISON: Radiograph from June 13, [address] from April 03, 2023 FINDINGS: Fusion hardware is noted anteriorly between C4 and C7. There is likely some degree of fusion at the disc spaces. Susceptibility artifact does limit evaluation somewhat. There is chronic wedging of C2 anteriorly. There is degenerative disc space narrowing at C7-T1. Cord signal is grossly unremarkable. Bone marrow signal is grossly unremarkable. C2-3: There is a mild left foraminal zone protrusion on image 16, series 20 without significant foraminal narrowing. The AP canal measures 9.2 mm at this level. C3-4: There is a concentric disc bulge and bilateral facet arthropathy. The nerve roots may be compressed bilaterally, [id number]. The AP canal diameter measures 5.7 mm at this level. C4-5: There is likely disc fusion at this level. Mild bilateral facet arthropathy. The right greater than left neural foramen is narrowed. There is probably a subtle spur or protrusion in the right subarticular zone on image 45, series 20 which does impress slightly on the ventral aspect of the cord. The AP canal diameter measures 9.4 mm at this level. C5-6: There is a broad-based posterior disc bulge with [id number] neural foraminal narrowing. The AP canal diameter measures 8.2 mm at this level. C6-7: There is disc fusion. The neural foramina are narrowed. The AP canal diameter measures 10.3 mm. C7-T1: There is a broad-based posterior disc bulge. The neural foramen on the right is narrowed. The AP canal diameter measures 8.8 mm. MRI/Spine Cervical (Routine) IMPRESSION: Multilevel degenerative disc disease and surgical changes as above with central canal narrowing. Please see above for details by level. Reading Location: [facility]
== END | disposition home or self-care (01) ==
LOC: MRI 12:17
PROVIDERS: PCP Internal Medicine; Referring Provider Student in an Organized Health Care Education/Training Program; Visit Provider Student in an Organized Health Care Education/Training Program
DX: G95.9 Disease of spinal cord, unspecified (principal); M54.12 Radiculopathy, cervical region
CPT/HCPCS: 72141